=== PATIENT | male | born 1950 | race Caucasian/White ===

== ENCOUNTER 2020-11-25 17:24 | Emergency (ER) | payer MEDICARE, SELFPAY ==
[2020-11-25 17:27] VITALS: BP 155/93; PULSE 76; RESP 18; TEMP 37.4; O2SAT 96; BMI 34.7
--- NOTE | 2020-11-25 17:57 | CT_ITS ---
STUDY: CT ABDOMEN AND PELVIS WITH CONTRAST REASON FOR EXAM: Male, 70 years old. Lower right abdomen pain x 1 week. RADIATION DOSAGE (If Supplied By Facility): CTDIvol = ( 18.59 ) mGy, DLP = ( 1274.45 ) mGycm TECHNIQUE: Transaxial images were obtained from the dome of the diaphragm to the symphysis pubis without oral contrast. IV 100mL Isovue-370 was administered. Sagittal and coronal images were reconstructed. Individualized dose optimization techniques were used for this CT. COMPARISON: None. FINDINGS: The visualized lung bases are unremarkable. The visualized portions of the heart are within normal limits. Normal liver. Normal gallbladder and extrahepatic biliary system. Normal spleen. Normal pancreas. Normal bilateral adrenal glands. Normal right kidney. Left kidney has a 4 mm nonobstructing lower pole stone. Evaluation of the GI tract is limited by absence of oral contrast. Cannot exclude stomach wall thickening. No dilated loops of bowel or evidence for obstruction. Cannot exclude segmental thickening of the tim of the small or large bowel. Cannot exclude enteritis or colitis. Moderate diffuse fecal retention. Diverticulosis without definite diverticulitis. Appendix within normal limits. Normal abdominal aorta. Normal inferior vena cava. Normal retroperitoneum. Normal urinary bladder. There is a small umbilical hernia containing fat. There are diffuse degenerative changes of the visualized lumbar spine. Compression fracture of T12 which appears old. CT/Abdomen/Pelvis W IV Cont ONLY IMPRESSION: No definite acute or significant abnormality seen. Electronically Signed: Harish Bean MD at 19:47 EST , Service support ,
--- NOTE | 2020-11-25 17:59 | ED.DCSUM_ITS ---
- ER Visit Summary Date of Service: 11/25/20 Chief Complaint: Right lower quadrant abdominal pain History of Present Illness: The patient is a 70 M history of 1 kidney stone around 1989 and has had some anxiety. Is never had any abdominal surgery. Patient states for 7 to 10 days he has had right lower quadrant abdominal pain. Worse when he bends over. Had one episode of nausea and vomiting that is since resolved. No fever or chills. No dysuria or hematuria. No abdominal trauma. A friend is that does some nursing told him she was concerned this could be his appendix and wanted to be evaluated. He denies any diarrhea or constipation. He has never had pain like this before. Physical Examination: Older male no acute distress vital signs stable afebrile temperature nine 9.3. He does not look septic or toxic. H EENT exam unremarkable. Neck nontender. Lungs clear to auscultation bilaterally. Heart regular rhythm no murmur rate about 75. Abdomen soft. He points to his right lower quadrant is not reproducibly tender. Right upper right lower quadrant and all other quadrants are nontender. Nondistended. No obvious hernia or mass. No signs of obstruction. No pulsatile mass. No signs of trauma. Moving all 4 extremities. Neurovascular intact. No edema. Back nontender. Neurologically is awake alert with no focal motor deficits. Test Results: CBC white count of 5 hemoglobin 14 normal. Chemistries normal normal creatinine gap. Liver enzymes total bili are slightly elevated 1.3 otherwise normal UA negative white cells red cells or nitrates 2+ bacteria. CT abdomen pelvis with IV contrast only shows no acute abnormality. There is an incidental finding of the left 4 mm kidney stone. With that in the kidney. There is increased stool the appendix was seen and was normal there is a incidental finding of a T12 compression fracture and an incidental finding of umbilical hernia. This was read by the radiologist and reviewed by me. I discussed all test results with the patient. At 8:02 PM he is doing well his abdomen is benign. Repeat abdominal exam is benign. Emergency Department Course and Treatment: 70-year-old male with right lower quadrant abdominal pain for 7 to 10 days. Differential would include appendicitis, kidney stone, UA, colitis or diverticulitis versus other etiologies. CAT scan labs being obtained. Currently does not need anything for pain or nausea. Treatment Plan: Tylenol and/or Motrin for pain. Follow-up with his doctor if not improving. Return if worse. Disposition: Discharge Impression: Acute right lower quadrant abdominal pain of uncertain etiology This note was generated with [employer] dictation software. It may contain incorrect words, spelling, and punctuation that were not noted in review of the chart prior to signing ED Disposition - Plan for ED Patient: Referrals: Cooper Boyd MD [Primary Care Provider] -
[2020-11-25] MEDS: 0.9% Normal Saline 1,000 ML 1000 ML IV (18:10)
[2020-11-25 18:21] LABS: Red Blood Cells-Urine 0 SEEN /hpf (0-5); Squamous Epithelial Cells - UA 0 SEEN /hpf (0-5)
[2020-11-25 18:22] LABS: Color, Urine Yellow (Yellow); Glucose, Dipstick Normal (Normal); Ketone-Dipstick 5 mg/dl (Negative); Leukocyte Esterase-Dipstick Negative /ul (Negative); Nitrite-Dipstick Negative (Negative); Occult Blood-Urine 150 /ul (Negative); Protein-Dipstick 15 mg/dl (Negative); Specific Gravity, Urine 1.025 (1.002-1.030); Urine Bilirubin Dipstick Negative (Negative); Urine Clarity Clear (Clear); Urine Urobilinogen Normal (Normal)
[2020-11-25 18:27] LABS: Absolute Lymphocyte Count 1.89 X10^3/uL (0.83-4.51); Absolute Neutrophil Count 3.4 X10^3/uL (2.0-7.7); Basophil# 0.02 X10^3/uL; Basophil% 0.3 % (0-1); Eosinophil# 0.09 X10^3/uL; Eosinophils% 1.6 % (0-5); Hematocrit 43.3 % (40-54); Hemoglobin 14.5 g/dL (13.0-16.5); Lymphocyte # 1.89 X10^3/ul (4.0); Lymphocyte % 32.6 % (19-41); Mean Corp Hgb Conc 33.5 g/dL (32-36); Mean Corpuscular Hgb 30.8 pg (27.0-32.0); Mean Corpuscular Volume 91.9 fL (80-94); Monocyte# 0.34 X10^3/uL; Monocyte% 5.9 % (0-10); NRBC Flagged by Analyzer 0 % (0-5); Neutrophil # 3.44 X10^3/uL (2.7-7.7); Neutrophil % 59.3 % (47-70); Platelet Count 244 K/mm3 (150-450); RBC Distribution Width CV 12.6 % (11.6-14.6); RBC Distribution Width SD 42.9 fl (35.1-43.9); Red Blood Count 4.71 M/mm3 (4.6-6.2); White Blood Count 5.8 K/mm3 (4.4-11.0)
[2020-11-25 18:34] LABS: Bacteria 2+ /hpf (None Seen); Mucous, Urine 4+ /hpf (<or=2+); White Blood Cells 0-5 SEEN /hpf (0-5)
[2020-11-25 18:53] LABS: ALB/GLOB Ratio 1.1 RATIO (0.9-2.4); AST(SGOT) 11 U/L (15-37); Alanine Aminotransfer ALT/SGPT 18 U/L (16-61); Albumin, Serum 3.7 g/dL (3.2-5.0); Alkaline Phosphatase 63 U/L (45-117); Anion Gap 5 (5-15); BUN 16 mg/dL (7-18); BUN/Creat Ratio 15.7 RATIO (10-20); Calcium,Total 8.4 mg/dL (8.5-10.1); Chloride 109 mmol/L (98-107); Creatinine, Serum 1.02 mg/dL (0.70-1.30); EST Glomerular Filtration Rate 77 mL/min (>60); Est Glom Filt Rate - Afr Amer 93 mL/min (>60); Estimated Creatinine Clearance 76.16 ml/min; Globulin 3.3 g/dL (2.2-4.2); Glucose 93 mg/dL (74-106); Potassium 3.9 mmol/L (3.5-5.1); Sodium Level 139 mmol/L (136-145)
[2020-11-25 19:34] VITALS: BP 141/81; PULSE 63; RESP 17; O2SAT 94
--- NOTE | 2020-11-25 20:06 | ED.DEP ---
ED Disposition - Plan for ED Patient: Disposition: Home or Assisted Living Instructions: ED Flank Pain, Uncertain Cause Referrals: Cooper Boyd MD [Primary Care Provider] - 3-5 Days if not improving Additional Instructions: Your test results tonight were unremarkable. Tylenol and or Motrin for pain. Follow-up with your doctor if not improving or return if feeling worse.
[2020-11-25 20:12] VITALS: BP 134/93; PULSE 60; RESP 17; O2SAT 99
== END 2020-11-25 20:13 | disposition home or self-care (01) ==
PROVIDERS: Emergency Provider Emergency Medicine; PCP Family Medicine
DX: R10.31 Right lower quadrant pain (principal); R11.2 Nausea with vomiting, unspecified; N20.0 Calculus of kidney; F41.9 Anxiety disorder, unspecified; Z79.899 Other long term (current) drug therapy; Z87.442 Personal history of urinary calculi
CPT/HCPCS: 74177; 80053; 81001; 85025; 96360; 99283; J7030; Q9967; A4216

== ENCOUNTER → 2020-12-30 15:29 | Outpatient (CLI) | payer MEDICARE, SELFPAY ==
[2020-12-30 18:36] LABS: Cholesterol 219 mg/dL (200); High Density Lipoprotein 45 mg/dL; PSA,Total - Annual Screen 1.56 ng/mL (0.00-4.00); Triglycerides 105 mg/dL; Very Low Density Lipoprotein 21 mg/dL (5-40)
[2021-01-01 06:08] LABS: HEPATITIS B SURFACE AG Negative (Negative); Hepatitis A AB, Total Negative (Negative); Hepatitis A IgM Antibody Negative (Negative); Hepatitis B Core AB IgM Negative (Negative); Hepatitis B Core Ab Total Negative (Negative); Hepatitis C Ab <0.1 s/co ratio (0.0-0.9)
[2021-01-01 14:19] LABS: Hep B Surface Antibodies Non Reactive (.)
== END ==
PROVIDERS: PCP Family Medicine; Visit Provider Family Medicine
DX: E80.6 Other disorders of bilirubin metabolism (principal); E66.9 Obesity, unspecified; Z12.5 Encounter for screening for malignant neoplasm of prostate
CPT/HCPCS: 36415; 80061; 84153; 86704; 86705; 86706; 86708; 86709; 86803; 87340; G0103

== ENCOUNTER → 2021-02-02 08:52 | Outpatient (CLI) | payer MEDICARE, SELFPAY ==
--- NOTE | 2021-02-02 08:56 | US_ITS ---
STUDY: ABDOMINAL ULTRASOUND - RIGHT UPPER QUADRANT REASON FOR VISIT: Male, 70 years old hyperbilirubinemia. TECHNIQUE: Ultrasound evaluation of the right upper quadrant was performed with real-time and static hill-scale imaging. TECHNICAL QUALITY: Adequate. COMPARISON: None. FINDINGS: Liver: The liver measures 16.1 cm. There is increased echogenicity consistent with fatty infiltration. The bile ducts are within normal limits. There is hepatic color flow. The direction of portal flow is hepatopetal. There are 2 cysts seen in the left lobe of the liver. The largest cyst measures 1.4 cm x 1.5 cm x 1.5 cm. Gallbladder: Normal distended gallbladder. The gallbladder wall measures 3 mm. There is a negative sonographic Torres''s sign. There is no pericholecystic fluid. There are no gallstones. Common Bile Duct (C.B.D.): The common bile duct measures 5 mm. Pancreas: Normal size of the head, body and tail of the pancreas. There is normal echogenicity of the pancreas. There is no demonstrated pancreatic mass or cyst. Right Kidney: Normal size of the right kidney. The right kidney measures 10.4 cm x 5.3 cm x 5 cm. Normal renal cortex. The right cortex measures 1.4 cm. There is a 1.4 cm x 1.5 cm x 1.5 cm cyst in the upper pole of the right kidney. There is no right hydronephrosis. US/Abdomen Limited IMPRESSION: Fatty infiltration of the liver. There are 2 cysts seen in the left lobe of the liver. 1.4 cm x 1.5 cm x 1.5 cm cyst in the upper pole of the right kidney. Electronically Signed: Mike Garber MD at 10:41 EDT , Service support ,
== END ==
PROVIDERS: PCP Family Medicine; Referring Provider Family Medicine; Visit Provider Family Medicine
DX: E80.6 Other disorders of bilirubin metabolism (principal)
CPT/HCPCS: 76705

== ENCOUNTER → 2021-03-03 | Outpatient (CLI) | payer MEDICARE, SELFPAY ==
--- NOTE | 2021-03-02 | IMM_PTH ---
PATIENT: DEEPTHI CHUNG LOC: [facility] U#:[id number] AGE/SX: 70/M ROOM: RE03/03/[address]: Dr. Cooper Boyd MD : 1950 BED: DIS: 03/03/2021 SPEC #: [id number] RECD: 03/04/21 12:37 STATUS: ELLYN REQ #: [id number] FENG: 03/02/21 00:[address]: Cooper Boyd DEPT: IMMUNOHISTOCHEMISTRY RECD BY: Mary Whipple Tissues: A - Skin of back, NOS B - Skin of chest Procedures: MART1 (add) S100 (initial) PHYSICIAN & INSTITUTION [place] [id number] SPECIMEN INFORMATION: Tissue Source: A ? Right lower back, B ? Left chest Clinical Info: Right lower back lesion; left chest lesion Specimen Number: [id number] A & B CPT code: 48777 x2, 83533 x2 METHODOLOGY: Deparaffinized sections of prefer/formalin-fixed tissue or PAP/DQ stained slides are incubated with monoclonal/polyclonal antibodies/oligonucleotide probes. Localization is made via biotin free immunoperoxidase method. Appropriate controls are performed and reacted as expected. Results on target cell population are indicated in the following table: RESULTS: ANTIBODY / CLONE RESULT Block A S-100 (4C4.9) positive MART-1 (A-103) positive Block B S-100 (4C4.9) positive MART-1 (A-103) negative These tests were developed and their performance characteristics determined by [facility]. They may not have been cleared or approved by the U.[place]. Food and Drug Administration. The FDA has determined that such clearance or approval is not necessary. The above immunohistochemical/dualISH markers are ordered and reviewed by the Pathologist. INTERPRETATION: A. Right lower back, shave biopsy: Intradermal nevus, neurotized. B. Left chest, shave biopsy: Neurofibroma. SJ:delfina 03/05/2021
--- NOTE | 2021-03-02 16:35 | LES_PTH ---
PATIENT: DEEPTHI CHUNG [facility] U#:[id number] AGE/SX: 70/M ROOM: RE03/03/[address]: Dr. Cooper Boyd MD : 1950 BED: DIS: 03/03/2021 SPEC #: [id number] RECD: 03/02/21 17:49 STATUS: ELLYN REDenise #: [id number] FENG: 03/02/21 16:[address]: Cooper Boyd DEPT: SURGICAL PATHOLOGY RECD BY: Kristina Palacios Tissues: A - Skin of back, NOS B - Skin of chest Procedures: Surgery Specimen Level IV HEADER OPERATION: Shave biopsy PRE-OP DIAGNOSIS: Right lower back lesion; left chest lesion TISSUE SUBMITTED: A - Shave biopsy right lower back, B ? Shave biopsy left chest MICROSCOPIC DIAGNOSIS A. Right lower back lesion, shave biopsy: Intradermal nevus (neurotized), present at the deep margin of the specimen. See comment. B. Left chest lesion, shave biopsy: Neurofibroma, present at the deep margin of the specimen. See comment. BRYAN:delfina 03/04/2021 COMMENT A & B - Immunohistochemistry ([id number]) supports the above diagnosis. MICROSCOPIC DESCRIPTION Slides are reviewed. GROSS DESCRIPTION A - Received in fixative is one container labeled with the patient's name and designated right lower back. The specimen consists of a piece of fields-white skin measuring 1 x 1 x 0.2 cm. There is a raised polypoid lesion on the surface measuring 0.5 x 0.3 cm. The specimen is inked, serially sectioned and submitted entirely in one cassette. B - Received in fixative is one container labeled with the patient's name and designated left chest. The specimen consists of a piece of fields-white skin measuring 0.5 x 0.5 x 0.3 cm. The specimen is inked, bisected and submitted entirely in one cassette. / BRYAN:delfina 03/03/21 TC:1 CPT: 80019 x2
== END | disposition home or self-care (01) ==
LOC: LABSPEC 08:33
PROVIDERS: PCP Family Medicine; Referring Provider Family Medicine; Visit Provider Family Medicine
DX: D22.5 Melanocytic nevi of trunk (principal)
CPT/HCPCS: 88305; 88341; 88342

== ENCOUNTER → 2021-07-17 | Outpatient (CLI) | payer MEDICARE, SELFPAY | END | disposition home or self-care (01) | PROVIDERS: PCP Family Medicine; Referring Provider Family Medicine; Visit Provider Family Medicine | DX: U07.1 COVID-19 (principal) | CPT/HCPCS: 87635; U0005; U0003 ==

== ENCOUNTER → 2022-01-28 | Outpatient (CLI) | payer MEDICARE, SELFPAY ==
[2022-01-28 17:48] LABS: Absolute Lymphocyte Count 1.71 X10^3/uL (0.83-4.51); Absolute Neutrophil Count 4.9 X10^3/uL (2.0-7.7); Basophil# 0.03 X10^3/uL; Basophil% 0.4 % (0-1); Eosinophils% 1.4 % (0-5); Hemoglobin 13.4 g/dL (13.0-16.5); Lymphocyte # 1.71 X10^3/ul (0.83-4.51); Lymphocyte % 23.2 % (19-41); Mean Corp Hgb Conc 33.5 g/dL (32-36); Mean Corpuscular Hgb 30.2 pg (27.0-32.0); Mean Corpuscular Volume 90.1 fL (80-94); Mean Platelet Vol. 9.3 fl (6.2-12.0); Monocyte# 0.62 X10^3/uL; Monocyte% 8.4 % (0-10); NRBC Flagged by Analyzer 0 % (0-5); Neutrophil # 4.89 X10^3/uL (2.7-7.7); Neutrophil % 66.3 % (47-70); Platelet Count 217 K/mm3 (150-450); RBC Distribution Width CV 13.7 % (11.6-14.6); RBC Distribution Width SD 45.1 fl (35.1-43.9); Red Blood Count 4.44 M/mm3 (4.6-6.2); White Blood Count 7.4 K/mm3 (4.4-11.0)
[2022-01-28 18:30] LABS: AST(SGOT) 10 U/L (15-37); Alanine Aminotransfer ALT/SGPT 17 U/L (16-61); Albumin, Serum 3.3 g/dL (3.2-5.0); Alkaline Phosphatase 78 U/L (45-117); Anion Gap 6 (5-15); BUN 19 mg/dL (7-18); BUN/Creat Ratio 19.5 RATIO (10-20); Calcium,Total 8.4 mg/dL (8.5-10.1); Chloride 108 mmol/L (98-107); Cholesterol 188 mg/dL (200); Creatinine, Serum 0.97 mg/dL (0.70-1.30); EST Glomerular Filtration Rate 81 mL/min (>60); Est Glom Filt Rate - Afr Amer 98 mL/min (>60); Globulin 3.4 g/dL (2.2-4.2); Glucose 101 mg/dL (74-106); High Density Lipoprotein 43 mg/dL; Potassium 3.9 mmol/L (3.5-5.1); Protein, Total 6.7 g/dL (6.4-8.2); Sodium Level 139 mmol/L (136-145); Triglycerides 86 mg/dL; Very Low Density Lipoprotein 17 mg/dL (5-40)
== END | disposition home or self-care (01) ==
LOC: MFPLAB 16:29
PROVIDERS: PCP Family Medicine; Visit Provider Registered Nurse
DX: E78.5 Hyperlipidemia, unspecified (principal); Z12.5 Encounter for screening for malignant neoplasm of prostate
CPT/HCPCS: 36415; 80053; 80061; 84153; 85025; G0103

== ENCOUNTER → 2023-06-09 | Outpatient (CLI) | payer MEDICARE, SELFPAY ==
[2023-06-09 18:25] LABS: Absolute Neutrophil Count 4.8 X10^3/uL (2.0-7.7); Basophil# 0.04 X10^3/uL; Basophil% 0.6 % (0-1); Eosinophil# 0.22 X10^3/uL; Eosinophils% 3.2 % (0-5); Hematocrit 44.6 % (40-54); Hemoglobin 14.2 g/dL (13.0-16.5); Lymphocyte % 21.5 % (19-41); Mean Corp Hgb Conc 31.8 g/dL (32-36); Mean Corpuscular Hgb 29.8 pg (27.0-32.0); Mean Corpuscular Volume 93.7 fL (80-94); Mean Platelet Vol. 9.5 fl (6.2-12.0); Monocyte# 0.41 X10^3/uL; Monocyte% 5.9 % (0-10); NRBC Flagged by Analyzer 0 % (0-5); Neutrophil # 4.78 X10^3/uL (2.7-7.7); Neutrophil % 68.5 % (47-70); Platelet Count 237 K/mm3 (150-450); RBC Distribution Width CV 13.6 % (11.6-14.6); RBC Distribution Width SD 46.5 fl (35.1-43.9); Red Blood Count 4.76 M/mm3 (4.6-6.2)
[2023-06-09 18:39] LABS: Vitamin B12 348 pg/mL (211-911); Vitamin D,25 Hydroxy 27.4 ng/mL
[2023-06-09 18:51] LABS: AST(SGOT) 9 U/L (15-37); Alanine Aminotransfer ALT/SGPT 17 U/L (16-61); Albumin, Serum 3.4 g/dL (3.2-5.0); Alkaline Phosphatase 71 U/L (45-117); Anion Gap 5 (5-15); BUN 15 mg/dL (7-18); BUN/Creat Ratio 13.6 RATIO (10-20); Calcium,Total 8.7 mg/dL (8.5-10.1); Chloride 110 mmol/L (98-107); Cholesterol 188 mg/dL (200); EST Glomerular Filtration Rate 70 mL/min (>60); Est Glom Filt Rate - Afr Amer 85 mL/min (>60); Ferritin 94 ng/mL (26-388); Globulin 3.4 g/dL (2.2-4.2); Glucose 102 mg/dL (74-106); Hemoglobin A1c 5.7 % (3.8-5.6); High Density Lipoprotein 42 mg/dL; Magnesium 2.2 mg/dL (1.6-2.6); Protein, Total 6.8 g/dL (6.4-8.2); Sodium Level 139 mmol/L (136-145); Thyroid Stim Hormone (TSH) 2.48 uIU/mL (0.358-3.74); Triglycerides 79 mg/dL; Very Low Density Lipoprotein 16 mg/dL (5-40)
== END | disposition home or self-care (01) ==
LOC: MFPLAB 15:15
PROVIDERS: PCP Family Medicine; Visit Provider Family Medicine
DX: R53.83 Other fatigue (principal)
CPT/HCPCS: 36415; 80053; 80061; 82306; 82607; 82728; 83036; 83735; 84443; 85025

== ENCOUNTER → 2024-05-31 | Outpatient (CLI) | payer MEDICARE, SELFPAY ==
[2024-05-31 15:10] LABS: Absolute Lymphocyte Count 1.66 X10^3/uL (0.83-4.51); Absolute Neutrophil Count 3.4 X10^3/uL (2.0-7.7); Basophil# 0.04 X10^3/uL; Basophil% 0.7 % (0-1); Eosinophil# 0.22 X10^3/uL; Eosinophils% 3.9 % (0-5); Hematocrit 43.7 % (40-54); Hemoglobin 14.2 g/dL (13.0-16.5); Lymphocyte # 1.66 X10^3/ul (0.83-4.51); Lymphocyte % 29.3 % (19-41); Mean Corp Hgb Conc 32.5 g/dL (32-36); Mean Corpuscular Hgb 30.8 pg (27.0-32.0); Mean Corpuscular Volume 94.8 fL (80-94); Mean Platelet Vol. 9.4 fl (6.2-12.0); Monocyte# 0.37 X10^3/uL; Monocyte% 6.5 % (0-10); NRBC Flagged by Analyzer 0 % (0-5); Neutrophil # 3.37 X10^3/uL (2.7-7.7); Neutrophil % 59.4 % (47-70); Platelet Count 237 K/mm3 (150-450); RBC Distribution Width CV 13.2 % (11.6-14.6); RBC Distribution Width SD 45.9 fl (35.1-43.9); Red Blood Count 4.61 M/mm3 (4.6-6.2); White Blood Count 5.7 K/mm3 (4.4-11.0)
[2024-05-31 15:23] LABS: Vitamin D,25 Hydroxy 43.9 ng/mL
[2024-05-31 15:26] LABS: AST(SGOT) 11 U/L (15-37); Alanine Aminotransfer ALT/SGPT 18 U/L (16-61); Albumin, Serum 3.5 g/dL (3.2-5.0); Alkaline Phosphatase 61 U/L (45-117); Anion Gap 9 (5-15); BUN 25 mg/dL (7-18); BUN/Creat Ratio 24.8 RATIO (10-20); Calcium,Total 9.1 mg/dL (8.5-10.1); Chloride 107 mmol/L (98-107); Cholesterol 191 mg/dL (200); Creatinine, Serum 1.01 mg/dL (0.70-1.30); EST Glomerular Filtration Rate 77 mL/min (>60); Est Glom Filt Rate - Afr Amer 93 mL/min (>60); Globulin 3.4 g/dL (2.2-4.2); Glucose 110 mg/dL (74-106); High Density Lipoprotein 45 mg/dL; PSA,Total - Annual Screen 1.54 ng/mL (0.00-4.00); Potassium 4.2 mmol/L (3.5-5.1); Protein, Total 6.9 g/dL (6.4-8.2); Sodium Level 139 mmol/L (136-145); Triglycerides 66 mg/dL; Very Low Density Lipoprotein 13 mg/dL (5-40)
[2024-05-31 15:55] LABS: Hemoglobin A1c 5.5 % (3.8-5.6)
[2024-06-02 11:09] LABS: Lyme Scn Total Ab w/Rflx Negative (Negative)
== END | disposition home or self-care (01) ==
LOC: MFPLAB 12:17
PROVIDERS: PCP Family Medicine; Visit Provider Family Medicine
DX: R73.03 Prediabetes (principal); L03.90 Cellulitis, unspecified; E55.9 Vitamin D deficiency, unspecified; R53.83 Other fatigue; Z12.5 Encounter for screening for malignant neoplasm of prostate
CPT/HCPCS: 36415; 80053; 80061; 82306; 83036; 84153; 85025; 86618; G0103

== ENCOUNTER → 2025-05-24 | Outpatient (CLI) | payer MEDICARE, SELFPAY ==
[2025-05-24 12:35] LABS: Hematocrit 41.1 % (40-54); Hemoglobin 14.0 g/dL (13.0-16.5); Immature Granulocytes Count 0.020 X10^3/uL (0.0-0.0); Mean Corp Hgb Conc 34.1 g/dL (32-36); Mean Corpuscular Volume 92.2 fL (80-94); Mean Platelet Vol. 9.4 fl (6.2-12.0); NRBC Flagged by Analyzer 0 % (0-5); Platelet Count 243 K/mm3 (150-450); RBC Distribution Width CV 13.1 % (11.6-14.6); RBC Distribution Width SD 44.7 fl (35.1-43.9); Red Blood Count 4.46 M/mm3 (4.6-6.2); White Blood Count 4.8 K/mm3 (4.4-11.0)
[2025-05-24 13:34] LABS: Anion Gap 12 (5-15); BUN 17 mg/dL (4-19); BUN/Creat Ratio 17.2 RATIO (10-20); Calcium,Total 9.0 mg/dL (7.6-11.0); Carbon Dioxide 22.1 mmol/L (21.0-32.0); Chloride 104 mmol/L (98-108); Glucose 106 mg/dL (70-99); Potassium 3.9 mmol/L (3.3-5.1)
--- OUTSIDE RECORDS SUMMARY | 2025-05-24 14:16 | XMS RPT_ITS | CCD ---
Author Organization [facility] [employer] [place] [facility] [employer] [facility] Care Team Providers Care Junior Technical Writer Name Role Phone Libra Casanova Attending Unavailable Libra Casanova Primary Care Unavailable Medications Current Medications Medication Drug Class(es) Dates Sig (Normalized) Sig (Original) citalopram 20 mg oral tablet (2 sources) Serotonin Reuptake Inhibitor Start: 11-25-2020 take 30 mg by mouth once daily Citalopram Active 30 MG PO DAILY November 25, 2020 6:38pm Problems Problem Classification Problem Date Documented Da te Episodic/Chronic Diabetes mellitus without complication (1 source) Prediabetes; Translations: [Prediabetes] Onset: 06-19-2024 Episodic Results Test Name Value Interpretation Reference Range Facility Lyme Screen W/Reflex WBon LYME SCREEN Ab Negative Normal Negative [facility] Comment on above: Result Comment: Lyme antibodies not detected. Reflex testing is not indicated. No laboratory evidence of infection with B. burgdorferi (Lyme disease). Negative results may occur in patients recently infected (less than or equal to 14 days) with B. burgdorferi. If recent infection is suspected, repeat testing on a new sample collected in 7 to 14 days is recommended. Performed at: [address] [id number] Nodulizer: Jey France PhD, Phone: [phone] Performed By: #### L 501.9910, L7000.5300, L501.9985, L500.4100, L100.0100, L500.4050, L506.1000 #### [facility] [place], [address] CBC W/Diff, Automatedon - Absolute Lymph 1.66 X10 3/uL Normal 0.83-4.51 [facility] Comment on above: Performed By: #### L 501.9910, L7000.5300, L501.9985, L500.4100, L100.0100, L500.4050, L506.1000 #### [facility] [address] [place], [address] Absolute Neut 3.4 X10 3/uL Normal 2.0-7.7 [facility] Comment on above: Performed By: #### L 501.9910, L7000.5300, L501.9985, L500.4100, L100.0100, L500.4050, L506.1000 #### [facility] [address] [place], [address] Basophils/100 WBC (Bld) 0.7 % Normal 0-1 [facility] Comment on above: Performed By: #### L 501.9910, L7000.5300, L501.9985, L500.4100, L100.0100, L500.4050, L506.1000 #### [facility] [address] [place], [address] Eosinophils/100 WBC (Bld) 3.9 % Normal 0-5 [facility] Comment on above: Performed By: #### L 501.9910, L7000.5300, L501.9985, L500.4100, L100.0100, L500.4050, L506.1000 #### [facility] [address] [place], [address] Erythrocyte distribution width (RBC) [Ratio] 13.2 % Normal 11.6-14.6 [facility] Comment on above: Performed By: #### L 501.9910, L7000.5300, L501.9985, L500.4100, L100.0100, L500.4050, L506.1000 #### [facility] [address] [place], [address] Hematocrit (Bld) [Volume fraction] 43.7 % Normal 40-54 [facility] Comment on above: Performed By: #### L 501.9910, L7000.5300, L501.9985, L500.4100, L100.0100, L500.4050, L506.1000 #### [facility] [address] [facility] [place], [address] Hemoglobin (Bld) [Mass/Vol] 14.2 g/dL Normal 13.0-16.5 [facility] Comment on above: Performed By: #### L 501.9910, L7000.5300, L501.9985, L500.4100, L100.0100, L500.4050, L506.1000 #### [facility] [address] [place], [address] IG% 0.200 Normal 0.0-0.9 [facility] Comment on above: Result Comment: IG% - Immature Granulocytes (promyelocytes, myelocytes and metamyelocytes) > 1% indicates that a LEFT SHIFT is Present. Performed By: #### L 501.9910, L7000.5300, L501.9985, L500.4100, L100.0100, L500.4050, L506.1000 #### [facility] [address] [place], [address] Lymphocytes/100 WBC (Bld) 29.3 % Normal 19-41 [facility] Comment on above: Performed By: #### L 501.9910, L7000.5300, L501.9985, L500.4100, L100.0100, L500.4050, L506.1000 #### [facility] [address] [facility] [place], [address] MCH (RBC) [Entitic mass] 30.8 pg Normal 27.0-32.0 [facility] Comment on above: Performed By: #### L 501.9910, L7000.5300, L501.9985, L500.4100, L100.0100, L500.4050, L506.1000 #### [facility] [address] [place], [address] MCHC (RBC) [Mass/Vol] 32.5 g/dL Normal 32-36 [facility] Comment on above: Performed By: #### L 501.9910, L7000.5300, L501.9985, L500.4100, L100.0100, L500.4050, L506.1000 #### [facility] [address] [place], [address] MCV (RBC) [Entitic vol] 94.8 fL High 80-94 [facility] Comment on above: Performed By: #### L 501.9910, L7000.5300, L501.9985, L500.4100, L100.0100, L500.4050, L506.1000 #### [facility] [address] [place], [address] Monocytes/100 WBC (Bld) 6.5 % Normal 0-10 [facility] Comment on above: Performed By: #### L 501.9910, L7000.5300, L501.9985, L500.4100, L100.0100, L500.4050, L506.1000 #### [facility] [address] [place], [address] Neutrophils/100 WBC (Bld) 59.4 % Normal 47-70 [facility] Comment on above: Performed By: #### L 501.9910, L7000.5300, L501.9985, L500.4100, L100.0100, L500.4050, L506.1000 #### [facility] [address] [place], [address] Nucleated RBC (Bld) [#/Vol] 0 10*3/uL Normal 0-5 [facility] Comment on above: Performed By: #### L 501.9910, L7000.5300, L501.9985, L500.4100, L100.0100, L500.4050, L506.1000 #### [facility] [address] [place], [address] Platelet mean volume (Bld) [Entitic vol] 9.4 fL Normal 6.2-12.0 [facility] Comment on above: Performed By: #### L 501.9910, L7000.5300, L501.9985, L500.4100, L100.0100, L500.4050, L506.1000 #### [facility] [address] [place], [address] Platelets (Bld) [#/Vol] 237 10*3/uL Normal 150-450 [facility] Comment on above: Performed By: #### L 501.9910, L7000.5300, L501.9985, L500.4100, L100.0100, L500.4050, L506.1000 #### [facility] [address] [place], [address] RBC (Bld) [#/Vol] 4.61 10*6/uL Normal 4.6-6.2 [facility] Comment on above: Performed By: #### L 501.9910, L7000.5300, L501.9985, L500.4100, L100.0100, L500.4050, L506.1000 #### [facility] [address] [place], [address] RDW SD 45.9 fl High 35.1-43.9 [facility] Comment on above: Performed By: #### L 501.9910, L7000.5300, L501.9985, L500.4100, L100.0100, L500.4050, L506.1000 #### [facility] [address] [place], [address] WBC (Bld) [#/Vol] 5.7 10*3/uL Normal 4.4-11.0 [facility] Comment on above: Performed By: #### L 501.9910, L7000.5300, L501.9985, L500.4100, L100.0100, L500.4050, L506.1000 #### [facility] [address] [place], [address] Comprehensive Metabolic Prof [facility] 05-31-2024 Albumin [Mass/Vol] 3.5 g/dL Normal 3.2-5.0 [facility] Comment on above: Performed By: #### L 501.9910, L7000.5300, L501.9985, L500.4100, L100.0100, L500.4050, L506.1000 #### [facility] [address] [place], [place], [id number] Albumin/Globulin [Mass ratio] 1.0 {ratio} Normal 0.9-2.4 [facility] Comment on above: Performed By: #### L 501.9910, L7000.5300, L501.9985, L500.4100, L100.0100, L500.4050, L506.1000 #### [facility] [address] [place], [place], [id number] ALK P 61 U/L Normal 45-117 [facility] Comment on above: Performed By: #### L 501.9910, L7000.5300, L501.9985, L500.4100, L100.0100, L500.4050, L506.1000 #### [facility] [address] [place], [address] ALT [Catalytic activity/Vol] 18 U/L Normal 16-61 [facility] Comment on above: Performed By: #### L 501.9910, L7000.5300, L501.9985, L500.4100, L100.0100, L500.4050, L506.1000 #### [facility] [address] [place], [address] AST [Catalytic activity/Vol] 11 U/L Low 15-37 [facility] Comment on above: Performed By: #### L 501.9910, L7000.5300, L501.9985, L500.4100, L100.0100, L500.4050, L506.1000 #### [facility] [address] [place], [address] Bilirubin [Mass/Vol] 0.80 mg/dL Normal 0.20-1.00 [facility] Comment on above: Result Comment: For patients on eltrombopag therapy, use of Dimension [place] TBIL is not recommended. Performed By: #### L 501.9910, L7000.5300, L501.9985, L500.4100, L100.0100, L500.4050, L506.1000 #### [facility] [address] [place], [address] BUN/CRE 24.8 RATIO High 10-20 [facility] Comment on above: Performed By: #### L 501.9910, L7000.5300, L501.9985, L500.4100, L100.0100, L500.4050, L506.1000 #### [facility] [address] [place], [address] CA,Total 9.1 mg/dL Normal 8.5-10.1 [facility] Comment on above: Performed By: #### L 501.9910, L7000.5300, L501.9985, L500.4100, L100.0100, L500.4050, L506.1000 #### [facility] [address] [place], [address] Chloride [Moles/Vol] 107 mmol/L Normal 98-107 [facility] Comment on above: Performed By: #### L 501.9910, L7000.5300, L501.9985, L500.4100, L100.0100, L500.4050, L506.1000 #### [facility] [address] [place], [address] CO2 [Moles/Vol] 23.0 mmol/L Normal 21.0-32.0 [facility] Comment on above: Performed By: #### L 501.9910, L7000.5300, L501.9985, L500.4100, L100.0100, L500.4050, L506.1000 #### [facility] [address] [place], [address] Creatinine [Mass/Vol] 1.01 mg/dL Normal 0.70-1.30 [facility] Comment on above: Result Comment: The validity of the calculated GFR GFRAA in patients over 70 years has not been determined. Clinical correlation is essential. Performed By: #### L 501.9910, L7000.5300, L501.9985, L500.4100, L100.0100, L500.4050, L506.1000 #### [facility] [address] [place], [address] EST GFR - AA 93 mL/min Normal >60 [facility] Comment on above: Result Comment: Afri can [place] GFR Calc Performed By: #### L 501.9910, L7000.5300, L501.9985, L500.4100, L100.0100, L500.4050, L506.1000 #### [facility] [address] [place], [address] GAP 9 Normal 5-15 [facility] Comment on above: Performed By: #### L 501.9910, L7000.5300, L501.9985, L500.4100, L100.0100, L500.4050, L506.1000 #### [facility] [address] [place], [address] GFR/1.73 sq M.predicted among non-blacks MDRD (S/P/Bld) [Vol rate/Area] 77 mL/min/{1.73_m2} Normal >60 [facility] Comment on above: Result Comment: Non- GFR Calc Performed By: #### L 501.9910, L7000.5300, L501.9985, L500.4100, L100.0100, L500.4050, L506.1000 #### [facility] [address] [place], [address] Globulin (S) [Mass/Vol] 3.4 g/dL Normal 2.2-4.2 [facility] Comment on above: Performed By: #### L 501.9910, L7000.5300, L501.9985, L500.4100, L100.0100, L500.4050, L506.1000 #### [facility] [address] [place], [address] Glucose [Mass/Vol] 110 mg/dL High 74-106 [facility] Comment on above: Result Comment: Fast ing Glucose result from 100 to 125 mg/dL suggests IMPAIRED HOMEOSTASIS per A.D.A. criteria. Performed By: #### L 501.9910, L7000.5300, L501.9985, L500.4100, L100.0100, L500.4050, L506.1000 #### [facility] [address] [place], [address] Potassium [Moles/Vol] 4.2 mmol/L Normal 3.5-5.1 [facility] Comment on above: Performed By: #### L 501.9910, L7000.5300, L501.9985, L500.4100, L100.0100, L500.4050, L506.1000 #### [facility] [address] [place], [address] Sodium [Moles/Vol] 139 mmol/L Normal 136-145 [facility] Comment on above: Performed By: #### L 501.9910, L7000.5300, L501.9985, L500.4100, L100.0100, L500.4050, L506.1000 #### [facility] [address] [place], [address] T PROT 6.9 g/dL Normal 6.4-8.2 [facility] Comment on above: Performed By: #### L 501.9910, L7000.5300, L501.9985, L500.4100, L100.0100, L500.4050, L506.1000 #### [facility] [address] [place], [address] Urea nitrogen [Mass/Vol] 25 mg/dL High 7-18 [facility] Comment on above: Performed By: #### L 501.9910, L7000.5300, L501.9985, L500.4100, L100.0100, L500.4050, L506.1000 #### [facility] [address] [place], [address] Hemoglobin A1con 05-31-2024 HbA1c (Bld) [Mass fraction] 5.5 % Normal 3.8-5.6 [facility] Comment on above: Result Comment: Norm al < 5.7 % Prediabetic 5.7 - 6.4 % Diabetic >or= 6.5 % Please note range changes. Performed By: #### L 501.9910, L7000.5300, L501.9985, L500.4100, L100.0100, L500.4050, L506.1000 #### [facility] [address] [place], [address] Lipid Profileon 05-31-2024 Cholesterol [Mass/Vol] 191 mg/dL Normal 200 [facility] Comment on above: Result Comment: <200 mg/dL Desirable 200-240 mg/dL Borderline >240 mg/dL High Risk Performed By: #### L 501.9910, L7000.5300, L501.9985, L500.4100, L100.0100, L500.4050, L506.1000 #### [facility] [address] [place], [address] Cholesterol in HDL [Mass/Vol] 45 mg/dL Normal [facility] Comment on above: Result Comment: The drugs N-Acetylcysteine and Metamizole may falsely depress this assay. Reference Range HDL <40 mg/dL Low HDL Cholesterol HDL >or= 60 mg/dL High HDL Cholesterol Performed By: #### L 501.9910, L7000.5300, L501.9985, L500.4100, L100.0100, L500.4050, L506.1000 #### [facility] [address] [place], [address] Cholesterol in LDL [Mass/Vol] 133 mg/dL High 0-130 [facility] Comment on above: Performed By: #### L 501.9910, L7000.5300, L501.9985, L500.4100, L100.0100, L500.4050, L506.1000 #### [facility] [address] [place], [address] Cholesterol in VLDL [Mass/Vol] 13 mg/dL Normal 5-40 [facility] Comment on above: Performed By: #### L 501.9910, L7000.5300, L501.9985, L500.4100, L100.0100, L500.4050, L506.1000 #### [facility] [address] [place], [address] Triglyceride [Mass/Vol] 66 mg/dL Normal [facility] Comment on above: Result Comment: The drugs N-Acetylcysteine and Metamizole may falsely depress this assay. Serum Triglycerides Reference Interval Normal <150 mg/dL Borderline high 150 - 199 mg/dL High 200 - 499 mg/dL Very High > or = 500 mg/dL Performed By: #### L 501.9910, L7000.5300, L501.9985, L500.4100, L100.0100, L500.4050, L506.1000 #### [facility] [address] [place], [place], [id number] (491) PSA,Total - Annual Screenon 05-31-2024 PSA,TOT SCREEN 1.54 ng/mL Normal 0.00-4.00 [facility] Comment on above: Result Comment: This test was performed using the TPSA assay method for the [employer] chemistry system. Values obtained with different assay methods cannot be used interchangably. When changing PSA assays in the course of monitoring a patient, additional sequential testing should be carried out to confirm baseline values. Performed By: #### L 501.9910, L7000.5300, L501.9985, L500.4100, L100.0100, L500.4050, L506.1000 #### [facility] [address] [place], [place], [id number] Vitamin D,25 Hydroxyon 05-31 Vitamin D 25-OH 43.9 ng/mL Normal [facility] Comment on above: Result Comment: Bonnie min D 25(OH) Status Range Deficiency <20 ng/mL (50nmol/L) Insufficiency 20 - 30 ng/mL (50 - 75 nmol/L) Sufficiency 30 - 100 ng/mL (75 - 250 nmol/L) Toxicity >100 ng/mL (>250 nmol/L) Performed By: #### L 501.9910, L7000.5300, L501.9985, L500.4100, L100.0100, L500.4050, L506.1000 #### [facility] [address] [place], [address] Absolute lymphocyte countOrd ered By: Rachel Jules on 06-09-2023 Lymphocytes Auto (Unsp spec) [#/Vol] 1.50 10*3/uL 0.83-4.51 [facility] Basophil percentageOrdered B y: Rachel Jules on 06-09-2023 Basophils/100 WBC (Bld) 0.6 % 0-1 [facility] Bilirubin [Mass/Vol] 1.10 mg/dL 0.20-1.00 [facility] Comment on above: For patients on eltr ombopag therapy, use of Dimension [place] TBIL is not recommended. Chloride [Moles/Vol] 110 mmol/L 98-107 [facility] Cholesterol [Mass/Vol] 188 mg/dL <200 [facility] Comment on above: <200 mg/dL Desirable 200-240 mg/dL Borderline >240 mg/dL High Risk Eosinophils/100 WBC (Bld) 3.2 % 0-5 [facility] Glucose [Mass/Vol] 102 mg/dL 74-106 [facility] Comment on above: Fasting Glucose resu lt from 100 to 125 mg/dL suggests IMPAIRED HOMEOSTASIS per A.D.A. criteria. Neutrophils (Bld) [#/Vol] 4.8 10*3/uL 2.0-7.7 [facility] Neutrophils/100 WBC (Bld) 68.5 % 47-70 [facility] Potassium [Moles/Vol] 4.0 mmol/L 3.5-5.1 [facility] Protein [Mass/Vol] 6.8 g/dL 6.4-8.2 [facility] Sodium [Moles/Vol] 139 mmol/L 136-145 [facility] Triglyceride [Mass/Vol] 79 mg/dL <199 [facility] Comment on above: The drugs N-Acetylcy steine and Metamizole may falsely depress this assay.Serum Triglycerides Reference Interval Normal <150 mg/dL Borderline high 150 - 199 mg/dL High 200 - 499 mg/dL Very High > or = 500 mg/dL WBC (Bld) [#/Vol] 7.0 10*3/uL 4.4-11.0 [facility] Blood erythrocytes count (nu mber/volume)Ordered By: Rachel Jules on 06-09-2023 RBC (Bld) [#/Vol] 4.76 10*6/uL 4.6-6.2 [facility] Blood hemoglobin measurement (mass/volume)Ordered By: Rachel Jules on 06-09-2023 Hemoglobin (Bld) [Mass/Vol] 14.2 g/dL 13.0-16.5 [facility] Blood lymphocytes/100 leukoc ytesOrdered By: Rachel Jules on 06-09-2023 Lymphocytes/100 WBC (Bld) 21.5 % 19-41 [facility] Blood monocytes/100 leukocyt esOrdered By: Rachel Jules on 06-09-2023 Monocytes/100 WBC (Bld) 5.9 % 0-10 [facility] Blood platelet mean volumeOr dered By: Rachel Jules on 06-09-2023 Platelet mean volume (Bld) [Entitic vol] 9.5 fL 6.2-12.0 [facility] Determination of erythrocyte mean corpuscular volume (MCV)Ordered By: Rachel Jules on 06-09-2023 MCV (RBC) [Entitic vol] 93.7 fL 80-94 [facility] Hematocrit Auto (Bld) [Volum e fraction]Ordered By: Rachel Jules on 06-09-2023 Hematocrit (Bld) [Volume fraction] 44.6 % 40-54 [facility] - Chemistry and C hemistry - challengeOrdered By: Rachel Jules on 06-09-2023 ALP [Catalytic activity/Vol] 71 U/L 45-117 [facility] ALT [Catalytic activity/Vol] 17 U/L 16-61 [facility] CO2 [Moles/Vol] 24.0 mmol/L 21.0-32.0 [facility] Cobalamin (Vitamin B12) [Mass/Vol] 348 pg/mL 211-911 [facility] Globulin (S) [Mass/Vol] 3.4 g/dL 2.2-4.2 [facility] Magnesium [Mass/Vol] 2.2 mg/dL 1.6-2.6 [facility] Urea nitrogen/Creatinine [Mass ratio] 13.6 mg/mg 10-20 [facility] - Hematology and Cell countsOrdered By: Rachel Jules on 06-09-2023 Erythrocyte distribution width (RBC) [Entitic vol] 46.5 fL 35.1-43.9 [facility] Erythrocyte distribution width (RBC) [Ratio] 13.6 % 11.6-14.6 [facility] Immature granulocytes/100 WBC (Bld) 0.300 % 0.0-0.9 [facility] Comment on above: IG% - Immature Granu locytes (promyelocytes, myelocytes and metamyelocytes) > 1% indicates that a LEFT SHIFT is Present. MCH (RBC) [Entitic mass] 29.8 pg 27.0-32.0 [facility] Nucleated RBC/100 WBC (Bld) [Ratio] 0 % 0-5 [facility] MCHC Auto (RBC) [Mass/Vol]Or dered By: Rachel Jules on 06-09-2023 MCHC (RBC) [Mass/Vol] 31.8 g/dL 32-36 [facility] No Panel InformationOrdered By: Rachel Jules on 06-09-2023 Estimated GFR (MDRD) Amer 85 mL/min >60 [facility] Comment on above: GFR Calc Estimated GFR (MDRD) Non-Af Amer 70 mL/min >60 [facility] Comment on above: Non- GFR Calc Thyroid Stimulating Hormone (TSH) 2.48 uIU/mL 0.358-3.74 [facility] Vitamin D 25-Hydroxy 27.4 ng/mL [facility] Comment on above: Vitamin D 25(OH) Sta tus Range Deficiency <20 ng/mL (50nmol/L) Insufficiency 20 - 30 ng/mL (50 - 75 nmol/L) Sufficiency 30 - 100 ng/mL (75 - 250 nmol/L) Toxicity >100 ng/mL (>250 nmol/L) Platelets bldOrdered By: Constantino Jules on 06-09-2023 Platelets (Bld) [#/Vol] 237 10*3/uL 150-450 [facility] Serum or plasma albumin jocelynn urement (mass/volume)Ordered By: Rachel Jules on 06-09-2023 Albumin [Mass/Vol] 3.4 g/dL 3.2-5.0 [facility] Serum or plasma albumin/glob ulin mass ratioOrdered By: Rachel Jules on 06-09-2023 Albumin/Globulin [Mass ratio] 1.0 {ratio} 0.9-2.4 [facility] Serum or plasma calcium jocelynn urement (mass/volume)Ordered By: Rachel Jules on 06-09-2023 Calcium [Mass/Vol] 8.7 mg/dL 8.5-10.1 [facility] Serum or plasma cholesterol in HDL measurement (mass/volume)Ordered By: Rachel Jules on 06-09-2023 Cholesterol in HDL [Mass/Vol] 42 mg/dL >40 [facility] Comment on above: The drugs N-Acetylcy steine and Metamizole may falsely depress this assay. Reference Range HDL <40 mg/dL Low HDL Cholesterol HDL >or= 60 mg/dL High HDL Cholesterol Serum or plasma cholesterol in VLDL measurement (mass/volume)Ordered By: Rachel Jules on 06-09-2023 Cholesterol in VLDL [Mass/Vol] 16 mg/dL 5-40 [facility] Serum or plasma creatinine m easurement (mass/volume)Ordered By: Rachel Jules on 06-09-2023 Creatinine [Mass/Vol] 1.10 mg/dL 0.70-1.30 [facility] Comment on above: The validity of the calculated GFR & GFRAA in patients over 70 years has not been determined. Clinical correlation is essential. Serum or plasma ferritin david surement (mass/volume)Ordered By: Rachel Jules on 06-09-2023 Ferritin [Mass/Vol] 94 ng/mL 26-388 [facility] Serum or plasma low density lipoprotein (LDL) cholesterol measurement (mass/volume)Ordered By: Rachel Jules on 06-09-2023 Cholesterol in LDL [Mass/Vol] 130 mg/dL 0-130 [facility] Serum or plasma urea nitroge n measurement (mass/volume)Ordered By: Rachel Jules on 06-09-2023 Urea nitrogen [Mass/Vol] 15 mg/dL 7-18 [facility] Thin prep Papanicolaou smear with manual screeningOrdered By: Rachel Jules on 06-09-2023 Thin prep Papanicolaou smear with manual screening 9 U/L 15-37 [facility] Thin prep Papanicolaou smear with manual screening 5 5-15 [facility] Whole blood hemoglobin A1c/t otal hemoglobin ratio (mass fraction)Ordered By: Rachel Jules on 06-09-2023 HbA1c (Bld) [Mass fraction] 5.7 % 3.8-5.6 [facility] Comment on above: Normal < 5.7 % Predi abetic 5.7 - 6.4 % Diabetic >or= 6.5 % Please note range changes. Absolute lymphocyte counton 01-28-2022 Lymphocytes Auto (Unsp spec) [#/Vol] 1.71 10*3/uL 0.83-4.51 [facility] Work Phone: Basophil percentageon 2021 Basophils/100 WBC (Bld) 0.4 % 0-1 [facility] Work Phone: Bilirubin [Mass/Vol] 1.30 mg/dL 0.20-1.00 [facility] Work Phone: Comment on above: For patients on eltr ombopag therapy, use of Dimension [place] TBIL is not recommended. Chloride [Moles/Vol] 108 mmol/L 98-107 [facility] Work Phone: Cholesterol [Mass/Vol] 188 mg/dL <200 [facility] Work Phone: Comment on above: <200 mg/dL Desirable 200-240 mg/dL Borderline >240 mg/dL High Risk Eosinophils/100 WBC (Bld) 1.4 % 0-5 [facility] Work Phone: Glucose [Mass/Vol] 101 mg/dL 74-106 [facility] Work Phone: Comment on above: Fasting Glucose resu lt from 100 to 125 mg/dL suggests IMPAIRED HOMEOSTASIS per A.D.A. criteria. Neutrophils (Bld) [#/Vol] 4.9 10*3/uL 2.0-7.7 [facility] Work Phone: Neutrophils/100 WBC (Bld) 66.3 % 47-70 [facility] Work Phone: Potassium [Moles/Vol] 3.9 mmol/L 3.5-5.1 [facility] Work Phone: Protein [Mass/Vol] 6.7 g/dL 6.4-8.2 [facility] Work Phone: Sodium [Moles/Vol] 139 mmol/L 136-145 [facility] Work Phone: Triglyceride [Mass/Vol] 86 mg/dL [facility] Work Phone: Comment on above: The drugs N-Acetylcy steine and Metamizole may falsely depress this assay.Serum Triglycerides Reference Interval Normal <150 mg/dL Borderline high 150 - 199 mg/dL High 200 - 499 mg/dL Very High > or = 500 mg/dL WBC (Bld) [#/Vol] 7.4 10*3/uL 4.4-11.0 [facility] Work Phone: Blood erythrocytes count (nu mber/volume)on 01-28-2022 RBC (Bld) [#/Vol] 4.44 10*6/uL 4.6-6.2 [facility] Work Phone: Blood hemoglobin measurement (mass/volume)on 01-28-2022 Hemoglobin (Bld) [Mass/Vol] 13.4 g/dL 13.0-16.5 [facility] Work Phone: Blood lymphocytes/100 leukoc yteson 01-28-2022 Lymphocytes/100 WBC (Bld) 23.2 % 19-41 [facility] Work Phone: Blood monocytes/100 leukocyt eson 01-28-2022 Monocytes/100 WBC (Bld) 8.4 % 0-10 [facility] Work Phone: Blood platelet mean volumeon 01-28-2022 Platelet mean volume (Bld) [Entitic vol] 9.3 fL 6.2-12.0 [facility] Work Phone: Determination of erythrocyte mean corpuscular volume (MCV)on 01-28-2022 MCV (RBC) [Entitic vol] 90.1 fL 80-94 [facility] Work Phone: Hematocrit Auto (Bld) [Volum e fraction]on 01-28-2022 Hematocrit (Bld) [Volume fraction] 40.0 % 40-54 [facility] Work Phone: Laboratory - Chemistry and C hemistry - challengeon 01-28-2022 ALP [Catalytic activity/Vol] 78 U/L 45-117 [facility] Work Phone: ALT [Catalytic activity/Vol] 17 U/L 16-61 [facility] Work Phone: CO2 [Moles/Vol] 25.0 mmol/L 21.0-32.0 [facility] Work Phone: Globulin (S) [Mass/Vol] 3.4 g/dL 2.2-4.2 [facility] Work Phone: Urea nitrogen/Creatinine [Mass ratio] 19.5 mg/mg 10-20 [facility] Work Phone: Laboratory - Hematology and Cell countson 01-28-2022 Erythrocyte distribution width (RBC) [Entitic vol] 45.1 fL 35.1-43.9 [facility] Work Phone: Erythrocyte distribution width (RBC) [Ratio] 13.7 % 11.6-14.6 [facility] Work Phone: Immature granulocytes/100 WBC (Bld) 0.300 % 0.0-0.9 [facility] Work Phone: Comment on above: IG% - Immature Granu locytes (promyelocytes, myelocytes and metamyelocytes) > 1% indicates that a LEFT SHIFT is Present. MCH (RBC) [Entitic mass] 30.2 pg 27.0-32.0 [facility] Work Phone: Nucleated RBC/100 WBC (Bld) [Ratio] 0 % 0-5 [facility] Work Phone: MCHC Auto (RBC) [Mass/Vol]on 01-28-2022 MCHC (RBC) [Mass/Vol] 33.5 g/dL 32-36 [facility] Work Phone: No Panel Informationon 01-28 Estimated GFR (MDRD) Amer 98 mL/min >60 [facility] Work Phone: Comment on above: GFR Calc Estimated GFR (MDRD) Non-Af Amer 81 mL/min >60 [facility] Work Phone: Comment on above: Non- GFR Calc Prostate Specific Antigen Screen 2.00 ng/mL 0.00-4.00 [facility] Work Phone: Comment on above: This test was perfor med using the TPSA assay method for [employer] chemistry system. Values obtained with differentassay methods cannot be used interchangably.When changing PSA assays in the course of monitoring apatient, additional sequential testing should be carriedout to confirm baseline values. Platelets bldon 01-28-2022 Platelets (Bld) [#/Vol] 217 10*3/uL 150-450 [facility] Work Phone: Serum or plasma albumin jocelynn urement (mass/volume)on 01-28-2022 Albumin [Mass/Vol] 3.3 g/dL 3.2-5.0 [facility] Work Phone: Serum or plasma albumin/glob ulin mass ratioon 01-28-2022 Albumin/Globulin [Mass ratio] 1.0 {ratio} 0.9-2.4 [facility] Work Phone: Serum or plasma calcium jocelynn urement (mass/volume)on 01-28-2022 Calcium [Mass/Vol] 8.4 mg/dL 8.5-10.1 [facility] Work Phone: Serum or plasma cholesterol in HDL measurement (mass/volume)on 01-28-2022 Cholesterol in HDL [Mass/Vol] 43 mg/dL [facility] Work Phone: Comment on above: The drugs N-Acetylcy steine and Metamizole may falsely depress this assay. Reference Range HDL <40 mg/dL Low HDL Cholesterol HDL >or= 60 mg/dL High HDL Cholesterol Serum or plasma cholesterol in VLDL measurement (mass/volume)on 01-28-2022 Cholesterol in VLDL [Mass/Vol] 17 mg/dL 5-40 [facility] Work Phone: Serum or plasma creatinine m easurement (mass/volume)on 01-28-2022 Creatinine [Mass/Vol] 0.97 mg/dL 0.70-1.30 [facility] Work Phone: Comment on above: The validity of the calculated GFR & GFRAA in patients over 70 years has not been determined. Clinical correlation is essential. Serum or plasma low density lipoprotein (LDL) cholesterol measurement (mass/volume)on 01-28-2022 Cholesterol in LDL [Mass/Vol] 128 mg/dL 0-130 [facility] Work Phone: Serum or plasma urea nitroge n measurement (mass/volume)on 01-28-2022 Urea nitrogen [Mass/Vol] 19 mg/dL 7-18 [facility] Work Phone: Thin prep Papanicolaou smear with manual screeningon 01-28-2022 Thin prep Papanicolaou smear with manual screening 10 U/L 15-37 [facility] Work Phone: Thin prep Papanicolaou smear with manual screening 6 5-15 [facility] Work Phone: Encounters Encounter Date Encounter Type Care Provider Facility Start: 05-31-2024 End: 05-31-2024 ambulatory [facility] Facility:[facility] Start: 06-09-2023 End: 06-09-2023 ambulatory [facility] Work Phone: Start: 06-09-2023 End: 06-09-2023 Patient encounter procedure [facility] Start: 01-28-2022 End: 01-28-2022 Patient encounter procedure [facility] Payers Date Payer Category Payer Medicare [id number] 2024 Self-pay [id number] 2004 Unknown [id number] Private Health Insurance [id number] Unknown [id number] Social History Date Type Detail Facility [facility]: [facility] Start: 1950 Sex Assigned At Male [facility] Evaluation note Note Date & Type Note Facility Evaluation note No assessment information availa ble [facility] Work Phone: Advance Directives No Advanced Directives Records Found Advance Directive Response Recorded Date/ Time Living Will No November 25 6:39pm Power of Media Clerk No November 25, 2020 6:39pm Summary Purpose Family History No Family History Records Found Additional Source Comments Goals (unrecognized section and content) Goals may be documented in a n alternate sectionGoals may be documented in an alternate section Care Teams (unrecognized sec tion and content) Team Status: Active Member Role Status Dates Dr. Fernanda Perez , Family Provider Active Rachel Jules DO Primary Care Provider Active Team Status: Inactive Member Role Status Dates Rachel Jules , Primary Care Provider, Attending Provider Active (unrecognized sect ion and content) No Status Records Found INFORMATION SOURCE (unrecogn ized section and content) DATE CREATED AUTHOR 06/21/2024 [facility] FOR RECORDS PERTAINING TO PATIENTS WHO ARE OR HAVE BEEN ENROLLED IN A CHEMICAL DEPENDENCY/SUBSTANCEABUSE PROGRAM, SOME INFORMATION MAY BE OMITTED. This clinical summary was aggregated from multiple sources. Caution should be exercised in using it in the provision of clinical care. This summary normalizes information from multiple sources, and as a consequence, information in this document may materially change the coding, format and clinical context of patient data. In addition, data may be omitted in some cases. CLINICAL DECISIONS SHOULD BE BASED ON THE PRIMARY CLINICAL RECORDS. [facility] [employer] [facility]. provides no warranty or guarantee of the accuracy or completeness of information in this document.
== END | disposition home or self-care (01) ==
LOC: MFPLAB 10:43
PROVIDERS: PCP Family Medicine; Visit Provider Family Medicine
DX: R31.9 Hematuria, unspecified (principal)
CPT/HCPCS: 36415; 80048; 85025

== ENCOUNTER → 2025-06-27 | Outpatient (CLI) | payer MEDICARE, SELFPAY ==
--- NOTE | 2025-06-27 17:20 | CT_ITS ---
PROCEDURE: CT ABD/PELVIS W/WO CONTRAST 06/27/2025 REASON FOR EXAM: GROSS HEMATURIA TECHNIQUE: Procedure Code: [id number] Modality: CT Procedure: CT ABD/PELVIS W/WO CONTRAST Coronal and Sagittal reconstruction series were provided. CONTRAST: Isovue 370 VOLUME: 100 ML One or more dose reduction techniques were used (e.g., Automated exposure control, adjustment of the mA and/or kV according to patient size, use of iterative reconstruction technique. RADIATION DOSE SUMMARY: CTDlvol: 33.94 mGy DLP: 4352.84 mGycm COMPARISON: CT abdomen and pelvis 11/25/2020. FINDINGS: Lung bases: Clear. Liver: Multiple simple kidney cysts with the largest in the left hepatic lobe measures 1.8 cm. Gallbladder: Unremarkable bladder. No hydronephrosis. Spleen: Unremarkable. Pancreas: Unremarkable. Adrenals: Unremarkable. Kidneys: Perinephric fat stranding. No hydronephrosis. A 3 mm nonobstructing stone at the midpole of the left kidney. No kidney masses. Bladder: Decompressed bladder. Bladder wall thickening and surrounding fat stranding consistent with acute cystitis. Reproductive Organs: Unremarkable. Bowel: No bowel wall thickening. No bowel obstruction. Appendix: Unremarkable. Lymph nodes: No lymphadenopathy. Vasculature: No aneurysm. Peritoneum / Retroperitoneum: No free air or free fluid. Bones: No acute bony abnormality. A Schmorl node at the upper endplate of T12. CT/CT Abd/Pelvis W/WO Contrast IMPRESSION: Perinephric fat stranding. No hydronephrosis. A 3 mm nonobstructing stone at t he midpole of the left kidney. No kidney masses. Bladder wall thickening and surrounding fat stranding consistent with acute cys titis. Reading Location: [id number]
== END | disposition home or self-care (01) ==
LOC: CT 17:14
PROVIDERS: PCP Family Medicine; Referring Provider Urology; Visit Provider Urology
DX: R31.0 Gross hematuria (principal)
CPT/HCPCS: 74178; Q9967

== ENCOUNTER → 2025-07-02 | Outpatient (CLI) | payer MEDICARE, SELFPAY ==
[2025-07-02 18:50] LABS: Hematocrit 43.3 % (40-54); Hemoglobin 14.3 g/dL (13.0-16.5); Mean Corp Hgb Conc 33.0 g/dL (32-36); Mean Corpuscular Volume 94.7 fL (80-94); Mean Platelet Vol. 9.1 fl (6.2-12.0); Platelet Count 272 K/mm3 (150-450); RBC Distribution Width CV 13.2 % (11.6-14.6); RBC Distribution Width SD 45.7 fl (35.1-43.9); Red Blood Count 4.57 M/mm3 (4.6-6.2); White Blood Count 5.5 K/mm3 (4.4-11.0)
[2025-07-02 19:19] LABS: AST(SGOT) 14 U/L (<=37); Alanine Aminotransfer ALT/SGPT 11 U/L (<=46); Albumin, Serum 4.0 g/dL (3.4-4.8); Alkaline Phosphatase 64 U/L (40-129); Anion Gap 12 (5-15); BUN 12 mg/dL (4-19); BUN/Creat Ratio 12.4 RATIO (10-20); Calcium,Total 9.3 mg/dL (7.6-11.0); Carbon Dioxide 22.9 mmol/L (21.0-32.0); Chloride 104 mmol/L (98-108); Cholesterol 206 mg/dL (<=200); Globulin 2.6 g/dL (2.2-4.2); Glucose 105 mg/dL (70-99); Low Density Lipoprotein Calc. 142 mg/dL; PSA,Total - Annual Screen 1.30 ng/mL (0.02-4.00); Potassium 4.2 mmol/L (3.3-5.1); Triglycerides 109 mg/dL; Very Low Density Lipoprotein 22 mg/dL (5-40); cholesterol:hdl ratio screen 4.93
== END | disposition home or self-care (01) ==
LOC: MFPLAB 15:11
PROVIDERS: PCP Family Medicine; Visit Provider Family Medicine
DX: Z12.5 Encounter for screening for malignant neoplasm of prostate (principal); E78.5 Hyperlipidemia, unspecified; R73.03 Prediabetes
CPT/HCPCS: 36415; 80053; 80061; 84153; 85027; G0103

== ENCOUNTER 2025-07-12 11:14 | Observation (INO) | payer MEDICARE, SELFPAY ==
[2025-07-12] VITALS (20 sets, daily range): BP systolic 68–166; BP diastolic 40–107; PULSE 64–98; RESP 16–18; TEMP 36.3–36.9; O2SAT 89–97; BMI 33.1; BMI 33.3
[2025-07-12] MEDS: Lactated Ringers 1,000 ML 15 ML IV (08:41)
--- NOTE | 2025-07-12 08:59 | PRE.ANES_ITS ---
ASA Classification* ASA Classification ASA Classification: 2 Assessment & Plan Anesthesia* Anesthesia Assessment Anesthesia Assessment: Discussed sedation and/or anesthesia options, risks, benefits, and alternatives with patient/parents/legal guardian/POA. Questions invited. The patient/parents/legal guardian/POA seems to understand and agrees to proceed with anesthesia plan. Reviewed the physical assessment, medical history, allergy history and patient home medications list prior to surgery/procedure/anesthetic and documented any changes. Performed airway and anesthesia risk assessments. Anesthesia Type Anesthesia Type: General Anesthesia Focused Assessment* Airway Assessment Mouth opens: >3 cm Mallampati Score: II Labs Anesthesia Preop lab: CBC WBC, (4.4-11.0) 5.5 K/mm3 07/02/25, 15:12 RBC, (4.6-6.2) 4.57 M/mm3 L 07/02/25, 15:12 Hgb, (13.0-16.5) 14.3 g/dL 07/02/25, 15:12 Hct, (40-54) 43.3 % 07/02/25, 15:12 Plt Count, (150-450) 272 K/mm3 07/02/25, 15:12 CHEMISTRY Potassium, (3.3-5.1) 4.2 mmol/L 07/02/25, 15:12 Sodium, (133-145) 138 mmol/L 07/02/25, 15:12 Magnesium, (1.6-2.6) 2.2 mg/dL 06/09/23, 15:18 BUN, (4-19) 12 mg/dL 07/02/25, 15:12 Creatinine, (0.70-1.20) 0.95 mg/dL 07/02/25, 15:12 Glucose, (70-99) 105 mg/dL H 07/02/25, 15:12 TSH, (0.358-3.74) 2.48 uIU/mL 06/09/23, 15:18 COAG Pre-Assessment Diagnosis/Proposed Procedure Planned Operative Procedure(s): TRANSURETHERAL RESECTION OF BLADDER TUMOR Anesthesia History Anesthesia History - data conversion analyst: Anesthesia History - data conversion analyst Hx Hospitalization No 07/09/25 08:42 Any Problems With Anesthesia No 07/09/25 08:42 Cholinesterase deficiency No 07/09/25 08:42 You/Your Family Experience No 07/09/25 08:42 fever (hyperthermia) with Relationship Recent Exposure to Contagious Disease Does patient have nerve No 07/09/25 08:42 stimulator Patient instructed to have device shut off --Does patient have Pacemaker or ICD? When Was Last Pacemaker Check QUESTION #4 FULL TEXT: You/Your Family Experience fever (hyperthermia) with Anesthesia Last Oral Intake Last Oral intake: Last Oral Intake NPO since Meds taken in AM with sips of water? Meds patient instructed to take am of surgery PONV PONV - data conversion analyst: PONV - data conversion analyst Female No 07/09/25 08:42 HX of Motion Sickness No 07/09/25 08:42 HX of N/V After Surgery No 07/09/25 08:42 Non-Smoker Yes 07/09/25 08:42 Duration of Surgery greater Yes 07/09/25 08:42 than 60 minutes Number of Risk Factors 2 07/09/25 08:42 PONV Score Moderate Risk 07/09/25 08:42 Respiratory Assessment Respiratory Assessment - data conversion analyst: Respiratory Tract Infection Hx - data conversion analyst Hx Respiratory Tract Infection No 07/09/25 08:42 STOP Sleep Apnea STOP Sleep Apnea - data conversion analyst: STOP Sleep Apnea - data conversion analyst Hx Hypertension No 07/09/25 08:42 Hx Sleep Apnea No 07/09/25 08:42 CPAP BIPAP Do you snore loudly (louder No 07/09/25 08:42 than talking or can be heard Do you often feel tired/ No 07/09/25 08:42 fatigued/ sleepy during daytime? Has anyone observed you stop No 07/09/25 08:42 breathing during sleep? STOP Results Negative 07/09/25 08:42 QUESTION #5 FULL TEXT : Do you snore loudly (louder than talking or can be heard through closed doors)? 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 Specify any problems Hx of Preganancy in last 3 N/A 07/09/25 08:42 Months Nurse Filling Out Transfusion [id number] 07/09/25 08:42 & Questions: Date: 07/09/25 07/09/25 08:42 Time: 08:47 07/09/25 08:42 Patient unable to answer at this time (ie. confused, unrespo /Reproduction History /Reproductive History - data conversion analyst: /Reproductive Hx- data conversion analyst Hx Now Gestational Age (in weeks): EDC: Hx Hx Para Hx Section SAB Active Medications Active Medications: Current Medications Generic Name Dose Route Start Last Admin Trade Name Freq PRN Reason Stop Dose Admin Cefazolin Sodium 2 gm/ Sodium 110 mls @ 200 mls/hr 07/12/25 10:30 Chloride IV 07/12/25 11:02 INTRAOP ONE Mitomycin 40 mg/ N/A 40 mls @ 2,400 mls/hr 07/12/25 10:30 INSTILLAT 07/12/25 10:31 X1 ONE Lactated Ringer's 1,000 mls @ 15 mls/hr 07/12/25 08:30 07/12/25 08:41 IV 15 mls/hr .Q48H SHAUNA Administration PFSH Medical History Wears partial dentures Depression Non-smoker Home Medications ?Medication ?Instructions ?Recorded ?Last Taken ?Type citalopram 20 mg tablet 30 mg PO DAILY 11/25/20 Unkn own History Allergy/AdvReac Type Severity Reaction Status Date / Time No Known Allergies Allergy Verified 07/12/25 08:40 Surgical History H/O Spinal surgery Hx of tonsillectomy Social History Smoking Status: Never smoker Review of Systems (Anesthesia) ROS Narrative System reviewed and no additional complaints, except as documented.
[2025-07-12] MEDS: Lactated Ringers 1,000 ML 1000 ML IV (10:29)
[2025-07-12] MEDS: Cefazolin 1 GM/5 ML Vial 2 GM IV (10:29)
--- NOTE | 2025-07-12 10:30 | BLA_PTH ---
PATIENT: DEEPTHI CHUNG LOC: MS3 U#:[id number] AGE/SX: 74/M [place] [facility] [place]07/12/[address]: Dr. Partha Malik MD : 1950 BED: 1 DIS: 07/13/2025 SPEC #: [id number] RECD: 07/12/25 13:16 STATUS: ELLYN CARSON #: [id number] FENG: 07/12/25 10:[address]: Partha Malik DEPT: SURGICAL PATHOLOGY RECD BY: Darren Brand ENTERED: 07/12/25 14:13 SP TYPE: BLADDER BX OTHR DR: Libra Casanova MD Tissues: A - Urinary bladder, NOS Procedures: Immunohistochemical Stains Surgery Specimen Level V HEADER OPERATION: Cysto, transurethral resection bladder tumor PRE-OP DIAGNOSIS: Bladder tumor TISSUE SUBMITTED: A- Bladder biopsy MICROSCOPIC DIAGNOSIS A. Bladder, transurethral resection bladder tumor: * High grade invasive urothelial carcinoma. * Lamina propria involved. * Muscularis propria present and involved. * IHC for GATA3 is positive, supporting the histologic impression. MICROSCOPIC DESCRIPTION Slides are reviewed. All matched controls reacted appropriately. These tests were developed and their performance characteristics determined by [facility]. They may not have been cleared or approved by the U.S. Food and Drug Administration. The FDA has determined that such clearance or approval is not necessary. The above immunohistochemical markers and/or special stains have been reviewed by the Pathologist. GROSS DESCRIPTION A. Received in formalin labeled with the patient's name and date of . Designated as bladder tumor is a 2.5 g, 4.0 x 3.3 x 0.7 cm aggregate of fields-pink to red, irregular, rubbery and cauterized tissue fragments. Entirely submitted in 3 cassettes. ND 07/12/2025 CPT:48819,46823
[2025-07-12] MEDS: Lidocaine 1% (5 ml sdv) 5 ML Vial IV (10:38)
[2025-07-12] MEDS: fentaNYL 100 MCG/2 ML Ampul IV (10:59)
--- NOTE | 2025-07-12 11:14 | OP.PCM_ITS ---
Operative Report (Standard) Operative Information Date of Procedure: 07/12/25 Pre-Operative Diagnosis: Large bladder tumor Post-Operative Diagnosis: The same Surgery/Procedure Performed: Transurethral section of the large bladder tumor consumer marketing specialist: No Type of Anesthesia: General RN Documented Start/Stop Times: Operation Date: 07/12/25 10:30 Case Time Into Pre-Op 07/12/25 08:19 Out of Pre-Op 07/12/25 10:23 Anesthesia Start 07/12/25 10:29 Into Room 07/12/25 10:29 Procedure Start 07/12/25 10:48 Procedure End 07/12/25 11:10 Procedure Start Time: 10:48 Procedure Stop Time: 11:15 Select all DRAINS/GRAFTS/IMPLANTS that apply: Drains Drain details: Three-way catheter irrigation Estimated Blood Loss: 25 cc Specimen collected: Yes Description of specimen(s) removed: Bladder tumor Description of surgery: A 74-year-old male had gross hematuria CAT scan was done that demonstrated the thickened bladder cystoscopy was then done and demonstrated what appeared to be a tumor in the dome of the bladder up by the bladder neck anterior so he was taken back to the operating room after smooth induction of anesthesia he was placed in dorsolithotomy position went in the bladder with a resectoscope the tumor tumor was coming down from the anterior part of the bladder looked very hard it also looked invasive started resecting resected deep into the muscle and appeared to get the entire tumor out but this appeared to be an invasive tumor very hard looking tumor very concerning for invasion into the muscle for my perspective after resecting this tumor then he had a lot of of what 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 Surgical Findings: Large tumor > 5cm in the dome of the bladder resected the tumor appeared to be hard and sessile and invasive Complications Complications: No Admit VTE Documentation VTE Present on Admission: No VTE Mechan Device Prophylaxis: SCD's VTE Pharm Prophylaxis ordered?: No
--- NOTE | 2025-07-12 11:23 | PCM.POST.ANE ---
Anesthesia: Postop Eval I Current Vital Signs Temperature: 97.4 F Pulse Rate: 80 Blood Pressure: 123/91 Respiratory Rate: 18 Pulse Ox: 93 Oxygen Delivery Method: Room Air Assessment Airway patent: Yes Spontaneous unlabored respirations: Yes Mental status: Awake nausea: No Vomiting: No Anesthesia Complication: No Fluid Hydration Crystalloid volume administer (ml): 900 Total IV fluid infused: 900 Progress Note Anesthesia document: Postop Eval 1 completed: Yes
--- NOTE | 2025-07-12 11:58 | POSTOPAN2_ITS ---
Anesthesia Postop Eval I Sum Postop Eval Completion status Anesthesia document: Postop Eval 1 completed: Yes Anesthesia Postop Eval I Summary Anesthesia Postop Eval I Summary: Anesthesia Postop Eval I: Assessment Summary Airway patent Yes 07/12/25 11:29 CUSTODIAL AIDE.CSIR Spontaneous unlabored Yes 07/12/25 11:29 CUSTODIAL AIDE.CSIR respirations Mental status Awake 07/12/25 11:29 CUSTODIAL AIDE.CSIR nausea No 07/12/25 11:29 CUSTODIAL AIDE.CSIR Vomiting No 07/12/25 11:29 CUSTODIAL AIDE.CSIR Anesthesia Postop Eval I: Fluid Summary Crystalloid volume administer 900 07/12/25 11:29 CUSTODIAL AIDE.CSIR (ml) Colloids volume administered ( ml) Blood Product volume administered (ml) Total IV fluid infused 900 07/12/25 11:29 CUSTODIAL AIDE.CSIR Anesthesia Postop Eval I: Summary Notes Anesthesia Complication No 07/12/25 11:29 CUSTODIAL AIDE.CSIR Anesthesia Complication Comment: Post-operative progress note Anesthesia: Postop Eval II Evaluation Mental status: Awake Pain Level: 1 nausea: No Vomiting: No
--- NOTE | 2025-07-12 11:58 | PCM.POSTANE2 ---
Anesthesia Postop Eval I Sum Postop Eval Completion status Anesthesia document: Postop Eval 1 completed: Yes Anesthesia Postop Eval I Summary Anesthesia Postop Eval I Summary: Anesthesia Postop Eval I: Assessment Summary Airway patent Yes 07/12/25 11:29 DAY HAUL YOUTH SUPERVISOR.CSIR Spontaneous unlabored Yes 07/12/25 11:29 DAY HAUL YOUTH SUPERVISOR.CSIR respirations Mental status Awake 07/12/25 11:29 DAY HAUL YOUTH SUPERVISOR.CSIR nausea No 07/12/25 11:29 DAY HAUL YOUTH SUPERVISOR.CSIR Vomiting No 07/12/25 11:29 DAY HAUL YOUTH SUPERVISOR.CSIR Anesthesia Postop Eval I: Fluid Summary Crystalloid volume administer 900 07/12/25 11:29 DAY HAUL YOUTH SUPERVISOR.CSIR (ml) Colloids volume administered ( ml) Blood Product volume administered (ml) Total IV fluid infused 900 07/12/25 11:29 DAY HAUL YOUTH SUPERVISOR.CSIR Anesthesia Postop Eval I: Summary Notes Anesthesia Complication No 07/12/25 11:29 DAY HAUL YOUTH SUPERVISOR.CSIR Anesthesia Complication Comment: Post-operative progress note Anesthesia: Postop Eval II Evaluation Mental status: Awake Pain Level: 1 nausea: No Vomiting: No
[2025-07-12] MEDS: 0.9% Normal Saline (1000mL) 1,000 ML 125 ML IV (15:21)
[2025-07-12] MEDS: Cefazolin 1 GM/50 ML BAG IV (17:54)
[2025-07-13 02:12] VITALS: BP 134/87; PULSE 58; RESP 18; TEMP 36.6; O2SAT 94
[2025-07-13] MEDS: Cefazolin 1 GM/50 ML BAG IV (02:16)
[2025-07-13 08:15] VITALS: BP 132/82; PULSE 59; RESP 16; TEMP 35.8; O2SAT 96
--- NOTE | 2025-07-13 10:31 | DCINST_ITS ---
Discharge Instructions DC O2, CPAP, BIPAP needs Home O2 Discharge instructions: No Dressing / Incision Discharge Activity: Return to Normal Activity and May Not Drive (while taking narcotic pain medications.) Dressing / Incision Call your doctor if you observe: Fever of 101 or Higher Follow Up Care Please Follow Up With: Partha Malik MD When: Call [phone] for an appointment Test Results: Test results from this visit will be discussed in further detail at your follow- up appointment, if applicable. Discharge Plan Admission Admit Date/Time: 07/12/25 11:14 Primary Reason for Your Visit: resection of bladder tumor Attending Provider: Partha Malik Primary Care Provider: Libra Casanova Discharge Orders/Prescriptions Prescriptions: No Action citalopram 20 MG tablet 30 mg PO DAILY Referrals / Follow Up: Libra Casanova MD [Primary Care Provider, Family Practice] Partha Malik MD [Med Staff - Active Staff, Urology]
--- NOTE | 2025-07-13 10:35 | PCM.PN.BLA ---
Progress Note Patient doing well status post TURBT for an aggressive looking tumor irrigation of catheter overnight was stopped we will remove the catheter this morning if he is able to urinate okay can go home today without a catheter follow-up in the office in 2 weeks
[2025-07-13 14:19] VITALS: BP 120/69; PULSE 73; RESP 16; TEMP 36.3; O2SAT 94
== END 2025-07-13 18:22 | disposition home or self-care (01) ==
LOC: SDC 13:38 → MS3 13:38
PROVIDERS: Admitting Provider Urology; PCP Family Medicine; Referring Provider Urology; Visit Provider Urology
PROC: 0T5B8ZZ Destruction of Bladder, Via Natural or Artificial Opening Endoscopic (ICD-10-PCS; CPT 51720; principal; 2025-07-12 10:20)
DX: C67.1 Malignant neoplasm of dome of bladder (principal); N40.1 Benign prostatic hyperplasia with lower urinary tract symptoms; R31.0 Gross hematuria
CPT/HCPCS: 52240; 88305; 88307; 88342; 94668; 96361; 96365; 96366; 99221; J9280; G0378; J2405

== ENCOUNTER → 2025-08-02 | Outpatient (CLI) | payer MEDICARE, SELFPAY | END | disposition home or self-care (01) | LOC: CT 11:56 | PROVIDERS: PCP Family Medicine; Referring Provider Student in an Organized Health Care Education/Training Program; Visit Provider Student in an Organized Health Care Education/Training Program | DX: C67.9 Malignant neoplasm of bladder, unspecified (principal) | CPT/HCPCS: 71260; Q9967 ==

== ENCOUNTER → 2025-08-20 | Outpatient (CLI) | payer MEDICARE, SELFPAY ==
--- NOTE | 2025-08-20 10:22 | NM_ITS ---
PROCEDURE: BONE SCAN WHOLE BODY 08/20/2025 REASON FOR EXAM: STAGING U.B. CANCER TECHNIQUE: Procedure Code: NMBO Modality: NM Procedure: BONE SCAN WHOLE BODY Whole-body bone scan with anterior and posterior views. Imaging at 3.5 hours. RADIOPHARMACEUTICAL: 26.9 mCi Technetium-99m MDP IV COMPARISON: CT scan dated June 27, 2025. FINDINGS: Bones: Mild uptake seen throughout the thoracic spine suggestive of degenerative changes. Mild increased markings in the posterior right cervical spine suggestive of degenerative changes as well as medial compartment of the right knee joint. The bladder is contracted. Kidneys: Unremarkable. NM/Bone Scan Whole Body IMPRESSION: No evidence of bony metastasis. Reading Location: [place] [id number]
== END | disposition home or self-care (01) ==
LOC: NM 10:19
PROVIDERS: PCP Family Medicine; Referring Provider Internal Medicine Hematology & Oncology; Visit Provider Internal Medicine Hematology & Oncology
DX: C67.3 Malignant neoplasm of anterior wall of bladder (principal)
CPT/HCPCS: 78306; A9503

== ENCOUNTER 2025-08-22 09:21 | Day surgery (SDC) | payer MEDICARE, SELFPAY ==
[2025-08-22] VITALS (9 sets, daily range): BP systolic 128–139; BP diastolic 67–91; PULSE 74–78; RESP 16–18; TEMP 36.2–36.4; O2SAT 93–97; BMI 34.5
[2025-08-22] MEDS: Lactated Ringers 1,000 ML 15 ML IV (10:01)
--- NOTE | 2025-08-22 10:37 | PRE.ANES_ITS ---
ASA Classification* ASA Classification ASA Classification: 2 Assessment & Plan Anesthesia* Anesthesia Assessment Anesthesia Assessment: Discussed sedation and/or anesthesia options, risks, benefits, and alternatives with patient/parents/legal guardian/POA. Questions invited. The patient/parents/legal guardian/POA seems to understand and agrees to proceed with anesthesia plan. Reviewed the physical assessment, medical history, allergy history and patient home medications list prior to surgery/procedure/anesthetic and documented any changes. Performed airway and anesthesia risk assessments. Anesthesia Type Anesthesia Type: MAC History Source History Obtained from:: Patient and Chart Anesthesia Focused Assessment* Temperature: 97.5 F Pulse Rate: 77 Blood Pressure: 139/79 Respiratory Rate: 16 Pulse Ox: 97 Oxygen Delivery Method: Room Air Airway Assessment Mouth opens: >3 cm Mallampati Score: III Teeth Condition: Caps/Crowns (Patient has several crowns. They are all tight.) and Partial (Patient has an upper partial. It will stand.) Neck Range of motion (ROM): Limited ROM (Severe Restriction) Labs Anesthesia Preop lab: CBC WBC, (4.4-11.0) 5.5 K/mm3 07/02/25, 15:12 RBC, (4.6-6.2) 4.57 M/mm3 L 07/02/25, 15:12 Hgb, (13.0-16.5) 14.3 g/dL 07/02/25, 15:12 Hct, (40-54) 43.3 % 07/02/25, 15:12 Plt Count, (150-450) 272 K/mm3 07/02/25, 15:12 CHEMISTRY Potassium, (3.3-5.1) 4.2 mmol/L 07/02/25, 15:12 Sodium, (133-145) 138 mmol/L 07/02/25, 15:12 Magnesium, (1.6-2.6) 2.2 mg/dL 06/09/23, 15:18 BUN, (4-19) 12 mg/dL 07/02/25, 15:12 Creatinine, (0.70-1.20) 0.95 mg/dL 07/02/25, 15:12 Glucose, (70-99) 105 mg/dL H 07/02/25, 15:12 TSH, (0.358-3.74) 2.48 uIU/mL 06/09/23, 15:18 COAG Pre-Assessment Diagnosis/Proposed Procedure Planned Operative Procedure(s): (R) Insertion, Vascular Port Right Possible Left Anesthesia History Anesthesia History - palliative care coordinator: Anesthesia History - palliative care coordinator Hx Hospitalization Yes 08/19/25 15:56 Any Problems With Anesthesia No 08/19/25 15:56 Cholinesterase deficiency No 08/19/25 15:56 You/Your Family Experience No 08/19/25 15:56 fever (hyperthermia) with Relationship Recent Exposure to Contagious No 08/22/25 09:50 Disease Does patient have nerve No 08/19/25 15:56 stimulator Patient instructed to have device shut off --Does patient have Pacemaker No 08/22/25 09:55 or ICD? When Was Last Pacemaker Check QUESTION #4 FULL TEXT: You/Your Family Experience fever (hyperthermia) with Anesthesia Last Oral Intake Last Oral intake: Last Oral Intake NPO since 23:30 08/22/25 09:55 Meds taken in AM with sips of No 08/22/25 09:55 water? Meds patient instructed to take am of surgery PONV PONV - palliative care coordinator: PONV - palliative care coordinator Female No 08/19/25 15:56 HX of Motion Sickness No 08/19/25 15:56 HX of N/V After Surgery No 08/19/25 15:56 Non-Smoker Yes 08/19/25 15:56 Duration of Surgery greater Yes 08/19/25 15:56 than 60 minutes Number of Risk Factors 2 08/19/25 15:56 PONV Score Moderate Risk 08/19/25 15:56 Height & Weight Height & Weight: Anesthesia: Height & Weight Height 6 ft 1 in 08/22/25 09:55 Weight: 118.841 kg 08/22/25 09:55 Body Mass Index (BMI) 34.5 08/22/25 09:55 Respiratory Assessment Respiratory Assessment - palliative care coordinator: Respiratory Tract Infection Hx - palliative care coordinator Hx Respiratory Tract Infection No 08/19/25 15:56 STOP Sleep Apnea STOP Sleep Apnea - palliative care coordinator: STOP Sleep Apnea - palliative care coordinator Hx Hypertension No 08/19/25 15:56 Hx Sleep Apnea No 08/19/25 15:56 CPAP BIPAP Do you snore loudly (louder No 08/19/25 15:56 than talking or can be heard Do you often feel tired/ No 08/19/25 15:56 fatigued/ sleepy during daytime? Has anyone observed you stop No 08/19/25 15:56 breathing during sleep? STOP Results Negative 08/19/25 15:56 QUESTION #5 FULL TEXT : Do you snore loudly (louder than talking or can be heard through closed doors)? Tobacco Use History Tobacco Use History - palliative care coordinator: Tobacco Use History - palliative care coordinator Tobacco Use Smoking Status Never smoker 08/19/25 15:56 Hx Tobacco Use No 08/19/25 15:56 Years Smoking Packs Smoked per Day Smoking Cessation Date was within the last 15 years Hx Smoking Cessation Date Hx Smoking Cessation Counseling Hematologic Medial History Hematologic Hx - palliative care coordinator: Hematologic Medical Hx - coloring checker Hx of Blood Transfusion No 08/19/25 15:56 Hx of Transfusion in last 3 No 08/19/25 15:56 Months Date of Last Transfusion (if within last 3 months) Ever experience any problems No 08/19/25 15:56 with transfusion(s)? Specify any problems Hx of Preganancy in last 3 N/A 08/19/25 15:56 Months Nurse Filling Out Transfusion MGRIFFITH 08/19/25 15:56 & Questions: Date: 08/19/25 08/19/25 15:56 Time: 15:58 08/19/25 15:56 Patient unable to answer at this time (ie. confused, unrespo /Reproduction History /Reproductive History - palliative care coordinator: /Reproductive Hx- palliative care coordinator Hx Now Gestational Age (in weeks): EDC: Hx Hx Para Hx Section SAB Does the father of the baby or his family experience fever w Father of the baby Malignant Hypertension history comment Active Medications Active Medications: Current Medications Generic Name Dose Route Start Last Admin Trade Name Freq PRN Reason Stop Dose Admin Lactated Ringer's 1,000 mls @ 15 mls/hr 08/22/25 09:45 08/22/25 10:01 IV 15 mls/hr .Q48H SHAUNA Administration PFSH Medical History Encounter for education Tinnitus Hearing loss Anxiety Bladder cancer Wears partial dentures Non-smoker Home Medications Medication Instructions Recorded Last Taken Type citalopram 20 mg tablet 30 mg PO DAILY 11/25/2008/10 07:00 History mecobalamin (vitamin B12) 1,000 1,000 mcg PO QDAY 07/1108/21/25 07:00 History mcg lozenges cholecalciferol (vitamin D3) 25 25 mcg PO DAILY 08/21/25 History mcg (1,000 unit) tablet (Vitamin D3) Allergy/AdvReac Type Severity Reaction Status Date / Time No Known Allergies Allergy Verified 08/22/25 09:47 Family History Brother Cancer skin Aunt Cancer Uncle Cancer Surgical History History of colonoscopy Hx of cystoscopy H/O Spinal surgery Hx of tonsillectomy Social History Smoking Status: Never smoker alcohol intake: never substance use type: does not use Review of Systems (Anesthesia) ROS Narrative System reviewed and no additional complaints, except as documented.
--- NOTE | 2025-08-22 10:45 | HP.PCM_ITS ---
HPI - General General Date of Admission: 08/22/25 Date of Service: 08/22/25 Chief Complaint: Port placement HPI Narrative DEEPTHI CHUNG, is a 74 M who presents for elective Mediport placement. Patient recently diagnosed with bladder cancer. His oncology team is recommending chemotherapy. Patient was recently seen to discuss Mediport placement. He presents today to have it placed [facility] Medical History Encounter for education Tinnitus Hearing loss Anxiety Bladder cancer Wears partial dentures Non-smoker Home Medications Medication Instructions Recorded Last Taken Type citalopram 20 mg tablet 30 mg PO DAILY 11/25/2008/10 07:00 History mecobalamin (vitamin B12) 1,000 1,000 mcg PO QDAY 07/1108/21/25 07:00 History mcg lozenges cholecalciferol (vitamin D3) 25 25 mcg PO DAILY 08/21/25 History mcg (1,000 unit) tablet (Vitamin D3) Allergy/AdvReac Type Severity Reaction Status Date / Time No Known Allergies Allergy Verified 08/22/25 09:47 Family History Brother Cancer skin Aunt Cancer Uncle Cancer Surgical History History of colonoscopy Hx of cystoscopy H/O Spinal surgery Hx of tonsillectomy Social History Smoking Status: Never smoker alcohol intake: never substance use type: does not use Vital Signs Vital Signs Vital Signs: 08/22/25 09:50 08/22/25 09:55 08/22/25 10:44 Temperature 97.5 F L 97.5 F L Temperature Source Temporal Pulse Rate 77 77 Respiratory Rate 16 16 Respiratory Pattern Normal Blood Pressure 139/79 H 139/79 H Blood Pressure Mean 99 Blood Pressure Source Monitor Blood Pressure Position Semi-Fowlers Blood Pressure Location Left Arm Pulse Ox 97 97 Oxygen Delivery Method Room Air Room Air Weight Weight: 262 lb Body Mass Index (BMI) 34.5 Physical Exam Const alert, oriented x3 and no apparent distress Assessment & Plan Assessment/Plan (1) Bladder cancer: QUALIFIERS: Bladder location: anterior wall Qualified Code(s): C67.3 - 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 Discussed details of the planned procedure as well as risks and benefits. He wishes to proceed
--- NOTE | 2025-08-22 10:45 | EX.PCM.DISCH ---
Discharge Instructions Diet Discharge Diet: Light diet - advance as tolerated Activity Return to work on:: 08/22/25February shower in (days): 1 Ice area for (Minutes): 30 Dressing / Incision Call your doctor if your incision/area has: Continuous Slow Oozing, Sudden Increased Bleeding, Increased Pain/ Swelling, Increased Redness, Foul Smelling Discharge and Swelling at the incision site Call your doctor if you observe: Fever of 101 or Higher Remove Dressing in: 3 days Cleanse incision/area with: Soap & Water Follow Up Care Please Follow Up With: Michael Nazario MD When: as needed Test Results: Test results from this visit will be discussed in further detail at your follow-up appointment, if applicable. Discharge Plan Admission Primary Reason for Your Visit: Port placement Attending Provider: Michael Nazario Primary Care Provider: Libra Casanova Instructions Print Language: Vietnamese Discharge Orders/Prescriptions Prescriptions: New oxycodone 5 mg tablet 5 mg PO Q8H PRN (Reason: pain) 3 Days Qty: 7 0RF Continued mecobalamin (vitamin B12) 1,000 mcg lozenge 1,000 mcg PO QDAY Rx Instructions: allow to dissolve in mouth OR may chew lightly before swallowing citalopram 20 MG tablet 30 mg PO DAILY cholecalciferol (vitamin D3) [Vitamin D3] 25 mcg (1,000 unit) tablet 25 mcg PO DAILY Referrals / Follow Up: Libra Casanova MD [Primary Care Provider, Family Practice] Disposition Disposition (needs filled in before D/C Order can be placed): Home, Self Care
[2025-08-22] MEDS: Lidocaine 1% (5 ml sdv) 5 ML Vial IV (11:03)
[2025-08-22] MEDS: Midazolam 2 MG/2 ML Syringe IV (11:03)
[2025-08-22] MEDS: Lactated Ringers 500 ML IV (11:03)
[2025-08-22] MEDS: Cefazolin 1 GM/5 ML Vial 2 GM IV (11:03)
[2025-08-22] MEDS: Lidocaine 1% /Epi 1:100 (20ml) 20 ML Vial (11:21)
--- NOTE | 2025-08-22 12:18 | OP.PCM_ITS ---
Operative Report (Standard) Operative Information Date of Procedure: 08/22/25 Pre-Operative Diagnosis: Bladder cancer Post-Operative Diagnosis: Same Surgery/Procedure Performed: Right IJ Mediport placement with C arm hotel administrative assistant: No Type of Anesthesia: Local and MAC RN Documented Start/Stop Times: Operation Date: 08/22/25 11:00 Case Time Into Pre-Op 08/22/25 09:33 Out of Pre-Op 08/22/25 10:55 Anesthesia Start 08/22/25 11:02 Into Room 08/22/25 11:02 Procedure Start 08/22/25 11:23 Procedure End 08/22/25 12:06 Anesthesia End 08/22/25 12:12 Out of Room 08/22/25 12:12 Into Recovery 08/22/25 12:13 Procedure Start Time: Procedure Stop Time: 12:06 Select all DRAINS/GRAFTS/IMPLANTS that apply: Implanted device (PowerPort MRI compatible implanted port) Implanted device details: PowerPort MRI compatible implanted port Estimated Blood Loss: 10 mL Specimen collected: No Description of surgery: The patient is a 74-year-old male who was recently diagnosed with bladder cancer. His oncology team is recommending chemotherapy. A Mediport was recommended. Patient presents today for placement of the Mediport. He was brought to the operating room today following informed consent. Preoperative antibiotics were given and a timeout was performed. He is placed supine on the operative table with arms outstretched and arm boards general anesthesia was induced. Chest and neck region was prepped and draped in the usual manner on the right. Ultrasound was used to identify the right internal jugular vein. Local anesthetic was infiltrated and then the vein was able to be cannulated on the first pass. Guidewire was threaded through the aperture of the needle. This was then secured to the drapes using a curved hemostat. C-arm was then brought into confirm appropriate placement of the wire. Region in the right upper chest was then selected for placement of the port hub. Every effort was made to make this is superior as possible. Skin incision was made after injecting local anesthetic. #15 blade was used to make this incision. Bovie electrocautery was then used to dissect down through subcutaneous tissue. A subcutaneous pocket was created. This was fashioned so that the port was fairly superficial and should be easily identifiable when used. The 15 blade was then used to make a small skin incision at the entry point of the wire. A curved hemostat was then used to create a small subcutaneous pocket in this area as well to facilitate the curvature of the tubing. The tubing was then tunneled from the larger incision on the chest up and out through the smaller incision in the neck. Tubing was then trimmed to about 27 cm. It was then attached to the hub and the hub was then affixed to the chest subcutaneous tissues using Prolene suture x 2. The dilator and tear-away sheath were then threaded over the guidewire and advanced to the hub. The dilator and wire were then removed thus leaving the sheath in place. The tubing was then threaded down the sheath. This appeared to be in good position. The sheath was then extracted while the tubing was advanced. Once the sheath was extracted, the port was tested.. It dennis and flushed easily with injectable saline. Every effort was made to make sure that there was no acute kinks or bends in the tubing especially at the neck. The por t was then dennis and flushed with heparin solution. The incisions were then closed using 3-0 Vicryl and 4-0 Vicryl. Steri-Strips were applied as dressing along with OpSite's. He was awakened from anesthesia and taken recovery in good condition Surgical Findings: See procedure note Complications Complications: No Admit VTE Documentation VTE Present on Admission: Yes VTE Mechan Device Prophylaxis: SCD's VTE Pharm Prophylaxis ordered?: No Reason prophylaxis not ordered: Treatment Not Indicated
--- NOTE | 2025-08-22 12:30 | RAD_ITS ---
PROCEDURE: CXR FOR LINE PLACEMENT 08/22/2025 REASON FOR EXAM: Port placement. TECHNIQUE: Procedure Code: [id number] Modality: DX Procedure: CXR FOR LINE PLACEMENT COMPARISON: None FINDINGS: A right-sided port a catheter has been placed. The tip is at the junction of the superior vena cava and right atrium. EKG electrodes are seen. Hyperinflation. Increased linear markings at the left lung base suggestive of linear atelectasis and/or linear scarring. RAD/CXR for Line Placement IMPRESSION: The tip of the right port a catheter is at the junction of the superior vena ca va and right atrium. Reading Location: [facility]
--- NOTE | 2025-08-22 12:32 | PCM.POST.ANE ---
Anesthesia: Postop Eval I Current Vital Signs Temperature: 97.2 F Pulse Rate: 74 Blood Pressure: 135/91 Respiratory Rate: 18 Pulse Ox: 95 Oxygen Delivery Method: Room Air Assessment Airway patent: Yes Spontaneous unlabored respirations: Yes Mental status: Awake and Calm nausea: No Vomiting: No Anesthesia Complication: No Fluid Hydration Crystalloid volume administer (ml): 500 Total IV fluid infused: 500 Progress Note Anesthesia document: Postop Eval 1 completed: Yes
--- NOTE | 2025-08-22 14:30 | POSTOPAN2_ITS ---
Anesthesia Postop Eval I Sum Postop Eval Completion status Anesthesia document: Postop Eval 1 completed: Yes Anesthesia Postop Eval I Summary Anesthesia Postop Eval I Summary: Anesthesia Postop Eval I: Assessment Summary Airway patent Yes 08/22/25 12:32 GRAPHIC DESIGN INTERN.SKOBY Spontaneous unlabored Yes 08/22/25 12:32 GRAPHIC DESIGN INTERN.WING respirations Mental status Awake,Calm 08/22/25 12:32 GRAPHIC DESIGN INTERN.SKOBY nausea No 08/22/25 12:32 GRAPHIC DESIGN INTERN.SKOBY Vomiting No 08/22/25 12:32 GRAPHIC DESIGN INTERN.SKOBY Anesthesia Postop Eval I: Fluid Summary Crystalloid volume administer 500 08/22/25 12:32 GRAPHIC DESIGN INTERN.SKOBY (ml) Colloids volume administered ( ml) Blood Product volume administered (ml) Total IV fluid infused 500 08/22/25 12:32 GRAPHIC DESIGN INTERN.ROSEANNEOBAna Anesthesia Postop Eval I: Summary Notes Anesthesia Complication No 08/22/25 12:32 GRAPHIC DESIGN INTERN.ROSEANNEOBAna Anesthesia Complication Comment: Post-operative progress note Anesthesia: Postop Eval II Evaluation Mental status: Awake and Calm Pain Level: 0 nausea: No Vomiting: No Complications Anesthesia Complication: No
--- NOTE | 2025-08-22 14:30 | PCM.POSTANE2 ---
Anesthesia Postop Eval I Sum Postop Eval Completion status Anesthesia document: Postop Eval 1 completed: Yes Anesthesia Postop Eval I Summary Anesthesia Postop Eval I Summary: Anesthesia Postop Eval I: Assessment Summary Airway patent Yes 08/22/25 12:32 HAND COREMAKER.SKOBY Spontaneous unlabored Yes 08/22/25 12:32 HAND COREMAKER.WING respirations Mental status Awake,Calm 08/22/25 12:32 HAND COREMAKER.SKOBY nausea No 08/22/25 12:32 HAND COREMAKER.SKOBY Vomiting No 08/22/25 12:32 HAND COREMAKER.SKOBY Anesthesia Postop Eval I: Fluid Summary Crystalloid volume administer 500 08/22/25 12:32 HAND COREMAKER.SKOBY (ml) Colloids volume administered ( ml) Blood Product volume administered (ml) Total IV fluid infused 500 08/22/25 12:32 HAND COREMAKER.ROSEANNEOBAna Anesthesia Postop Eval I: Summary Notes Anesthesia Complication No 08/22/25 12:32 HAND COREMAKER.ROSEANNEOBAna Anesthesia Complication Comment: Post-operative progress note Anesthesia: Postop Eval II Evaluation Mental status: Awake and Calm Pain Level: 0 nausea: No Vomiting: No Complications Anesthesia Complication: No
== END 2025-08-22 13:55 | disposition home or self-care (01) ==
LOC: SDC 09:25 → AC 09:27
PROVIDERS: PCP Family Medicine; Referring Provider Surgery; Visit Provider Surgery
DX: Z45.2 Encounter for adjustment and management of vascular access device (principal); C67.3 Malignant neoplasm of anterior wall of bladder
CPT/HCPCS: 36561; 00532; 71045; 77001; C1788; J2405

== ENCOUNTER 2025-09-26 16:24 | Inpatient (IN) | payer MEDICARE, SELFPAY ==
[2025-09-26] VITALS (12 sets, daily range): BP systolic 131–184; BP diastolic 81–96; PULSE 82–114; RESP 18–30; TEMP 36.6–36.9; O2SAT 87–96; BMI 34.9; BMI 33.3
--- NOTE | 2025-09-26 16:58 | RAD_ITS ---
PROCEDURE: CHEST 1 VIEW (PORTABLE) 09/26/2025 REASON FOR EXAM: DYSPNEA TECHNIQUE: Frontal view of the chest. COMPARISON: 08/22/2025 FINDINGS: Devices: Right chest wall MediPort with catheter tip at the superior cavoatrial junction. Lungs/Pleura: No focal consolidation, pneumothorax or sizable pleural effusion. Heart/Mediastinum: Normal in size. No vascular congestion. Bones/Soft tissues: Mild degenerative changes of the visualized spine and bilateral shoulders. RAD/Chest 1 View (Portable) IMPRESSION: No evidence of acute pulmonary disease. Reading Location: [id number]
--- NOTE | 2025-09-26 16:58 | EKG12_ITS ---
Test Reason : SOB Blood Pressure : */* mmHG Vent. Rate : 110 BPM Atrial Rate : * BPM P-R Int : * ms QRS Dur : 88 ms QT Int : 362 ms P-R-T Axes : * 4 53 degrees QTcB Int : 489 ms Sinus tachycardia Otherwise normal ECG Confirmed by Jhonny Moe ([id number]), subeditor JOHN CASTANEDA ([id number]) on 09/27/2025 10:39:17 AM Referred By: SILVIA Confirmed By: Jhonny Moe
--- NOTE | 2025-09-26 17:01 | ED.VIS.DYS ---
HPI History of Present Illness Chief Complaint: Shortness of Breath Informant: patient Narrative Narrative: 74-year-old male brought himself to the emergency room today show chief complaint of shortness of breath. Patient just completed chemoradiation for bladder cancer. He states his last radiation was on the . The week before he finished his last chemotherapy. He states that he does not have any known lung conditions that he is treated for. The day after radiation he began to have a slight sore throat and sneezing. He stated that he has subsequently developed significant shortness of breath and coughing up large amounts of phlegm. He denies any leg swelling. No known cardiac history. [facility] Medical History Encounter for chemotherapy management Encounter for education Tinnitus Hearing loss Anxiety Bladder cancer Wears partial dentures Non-smoker Home Medications ?Medication ?Instructions ?Recorded ?Last Taken ?Type citalopram 20 mg tablet 30 mg PO DAILY 11/25/20 09/26/25 History mecobalamin (vitamin B12) 1,000 1,000 mcg PO QDAY 07/29/25 09/26/25 History mcg lozenges cholecalciferol (vitamin D3) 25 25 mcg PO DAILY 08/22/25 09/26/25 History mcg (1,000 unit) tablet (Vitamin D3) lorazepam 1 mg tablet 1 mg PO Q12H PRN anxiety 09/26/25 09/26/25 History Allergy/AdvReac Type Severity Reaction Status Date / Time No Known Allergies Allergy Verified 09/26/25 16:29 Family History Brother Cancer skin Aunt Cancer Uncle Cancer Surgical History History of colonoscopy Hx of cystoscopy H/O Spinal surgery Hx of tonsillectomy Social History Smoking Status: Never smoker alcohol intake: never substance use type: does not use ROS ROS ED Constitutional Constitutional ED: Denies chills, fever(s) or weight loss Eyes Eyes: Denies change in vision or diplopia ENT ENT ED: Reports rhinorrhea and sore throat; Denies ear pain Cardiovascular Cardiovascular: Reports racing heartbeat; Denies chest pain, orthopnea or palpitations Respiratory/Chest Respiratory/Chest: Reports cough, dyspnea, dyspnea on exertion and sputum; Denies orthopnea Gastrointestinal Gastrointestinal: Denies abdominal pain, diarrhea, nausea or vomiting Genitourinary Genitourinary ED: Denies dysuria, hematuria or urinary frequency Musculoskeletal Musculoskeletal: Reports myalgias; Denies arthralgias Integumentary Denies abscess or rash Neurologic Neurologic: Denies headache(s) or weakness Psychiatric Psychiatric: Denies anxiety, depression, suicidal ideation or suicidal thoughts Endocrine Endocrinology: Denies polydipsia, polyphagia or polyuria Allergic/Immunologic Allergic/Immunologic ED: Denies mouth swelling, tongue swelling or urticaria EXAM Physical Exam Const Vital Signs: 09/26/25 16:27 09/26/25 16:30 09/26/25 16:30 Temperature 98.4 F 98.4 F Temperature Source Oral Oral Pulse Rate 114 H 114 H Respiratory Rate 30 H 30 H Respiratory Effort Respiratory Depth Respiratory Pattern Blood Pressure 145/82 H 145/82 H Blood Pressure Mean 103 103 Pulse Ox 87 93 93 Oxygen Delivery Method Room Air Nasal Cannula Nasal Cannula Oxygen Flow Rate (L/min) 4 4 09/26/25 16:57 09/26/25 17:13 09/26/25 17:19 Temperature Temperature Source Pulse Rate 110 H Respiratory Rate 27 H Respiratory Effort Short of Breath Labored Accessory Muscle Use Respiratory Depth Deep Respiratory Pattern Tachypnea Tachypnea Blood Pressure Blood Pressure Mean Pulse Ox Oxygen Delivery Method Room Air Nasal Cannula Oxygen Flow Rate (L/min) 4 09/26/25 17:30 09/26/25 18:09 09/26/25 19:00 Temperature 98.4 F 98.1 F 98 F Temperature Source Oral Temporal Oral Pulse Rate 104 H 96 90 Respiratory Rate 25 H 24 H 22 H Respiratory Effort Respiratory Depth Respiratory Pattern Blood Pressure 139/85 H 146/89 H 184/96 H Blood Pressure Mean 103 108 125 Pulse Ox 91 92 95 Oxygen Delivery Method Nasal Cannula Room Air Nasal Cannula Oxygen Flow Rate (L/min) 4 4 09/26/25 20:00 09/26/25 20:20 09/26/25 21:00 Temperature 98.2 F 98.2 F 98.2 F Temperature Source Oral Oral Pulse Rate 85 83 82 Respiratory Rate 20 H 18 19 H Respiratory Effort Respiratory Depth Respiratory Pattern Blood Pressure 131/89 H 131/89 H 150/95 H Blood Pressure Mean 103 103 113 Pulse Ox 95 96 96 Oxygen Delivery Method Room Air Room Air Oxygen Flow Rate (L/min) Positive well nourished, well developed and obese General Appearance ED: well developed; Negative for NAD Nutritional Appearance: obese HEENT Reports normocephalic, head/scalp atraumatic and moist mucous membranes Eyes PERRL and EOMs intact bilaterally Neck no lymphadenopathy, supple and no JVD Resp Resp Narrative: Patient is clearly tachypneic. He has audible rhonchi and wheezing from across the room. He is using abdominal musculature to breathe. Cardio regular rate, regular rhythm and no murmurs Rate: tachycardic GI normal to inspection, nondistended, normoactive bowel sounds and non-tender Palpation: soft Back/Spine no CVA tenderness and normal ROM Extremity normal to inspection General Extremety ED: Negative for edema General Extremity: Negative for edema Neuro oriented x3 and CN's II-XII intact bilaterally Sensorium / Orientation: alert Motor Exam: strength 5/5 throughout Psych mental status grossly normal Mood & Affect: Negative for depressed or tearful Skin no rashes or lesions noted and no wounds MDM MDM MDM Narrative Medical decision making narrative: Differential diagnosis includes but not limited to bronchospasm pneumonia pleural effusion anemia electrolyte abnormalities sepsis pulmonary embolism pericardial effusion viral syndrome liver dysfunction renal dysfunction coagulation Patient was noted to be hypoxic in triage and was placed on supplemental oxygen. White count is 3.2 with a hemoglobin 11.9 and platelet count of 126. INR 1.1. Normal lactic acid. Troponins are 23 and 33. Normal renal function normal electrolytes. Urinalysis greater than 100 red cells greater than 100 white cells 1+ bacteria positive nitrates. Patient had blood and urine culture sent. My independent interpretation of the chest x-ray is no definitive infiltrate. A CTA of the chest was obtained which does not demonstrate an obvious pulmonary embolism. Patient received breathing treatments and Solu-Medrol and feels substantially better. He is still requiring supplemental oxygen. He also received Rocephin and azithromycin. Plan of care is admission into hospital. History & Record Review Discussion w/independent historian: Patient Additional record(s) reviewed:: Prior outpatient record and Prior labs Lab Data Attestation: I reviewed the patient's lab results. Labs: Laboratory Results - last 24 hr 09/26/25 09/26/25 09/26/25 17:10 18:10 19:23 WBC 3.2 L RBC 3.84 L Hgb 11.9 L Hct 36.1 L MCV 94.0 MCH 31.0 MCHC 33.0 RDW Std Deviation 48.3 H RDW Coeff of Jono 14.7 H Plt Count 126 L MPV 8.4 Immature Gran % (Auto) 0.000 Neut % (Auto) 87.9 H Lymph % (Auto) 5.3 L [place] % (Auto) 5.9 Eos % (Auto) 0.6 Baso % (Auto) 0.3 Absolute Neuts (auto) 2.8 Absolute Lymphs (auto) 0.17 L Nucleated RBC % 0 PT 14.5 INR 1.1 APTT 22.2 L Sodium 136 Potassium 3.8 Chloride 100 Carbon Dioxide 23.6 Anion Gap 12 BUN 15 Creatinine 1.08 Estim Creat Clear Calc 79.24 Est GFR (MDRD) Non-Af 72 BUN/Creatinine Ratio 13.4 Glucose 140 H Lactic Acid 1.4 Calcium 9.1 Total Bilirubin 0.95 AST 18 ALT 12 Alkaline Phosphatase 73 Troponin T High Sens 23 H Troponin T Hi Sens 2 Hr 33 H NT pro BNP II 375 Total Protein 6.7 Albumin 4.1 Globulin 2.6 Albumin/Globulin Ratio 1.6 Urine Color Elaine Urine Clarity Cloudy Urine pH 5.0 Ur Specific [place] 1.025 Urine Protein 500 H Urine Glucose (UA) 50 H Urine Ketones 5 H Urine Occult Blood 250 H Urine Nitrite Positive H Urine Bilirubin 1 H Urine Urobilinogen Normal Ur Leukocyte Esterase 100 H Urine RBC > 100 SEEN Urine WBC >100 SEEN Ur Squamous Epith Cells 0 SEEN Urine Bacteria 1+ Urine Mucus 2+ Radiography Diagnostic Testing: Clinical Impression(s) from Imaging Studies Chest X-Ray 09/26/25 16:58 IMPRESSION: No evidence of acute pulmonary disease. Reading Location: [facility] Chest CTA 09/26/25 19:08 IMPRESSION: 1. Limited evaluation of the mid and lower lung subsegmental pulmonary arteries (due to respiratory motion). No evidence of PE in the remaining pulmonary arteries. 2. Mild bilateral bronchial wall thickening, suggesting infectious or inflammatory small airways disease. 3. Coronary artery calcification is present. Reading Location: [facility] EKG Initial EKG: Attestation: I personally reviewed and interpreted this EKG as follows: Comments: Sinus tachycardia ventricular rate of 110 bpm Management Discussion w/another healthcare provider: Hospitalist Discharge Plan Dx/Rx/DC Orders Clinical Impression: Acute bronchitis, Acute bronchospasm, Acute hypoxemic respiratory failure, UTI (urinary tract infection) Disposition Disposition: Acute Care Hospital [facility]
[2025-09-26] MEDS: Albuterol 2.5 MG/3 ML VIAL.NEB. INHALATION (17:12)
[2025-09-26 17:34] LABS: Hematocrit 36.1 % (40-54); Hemoglobin 11.9 g/dL (13.0-16.5); Immature Granulocytes Count 0.000 X10^3/uL (0.0-0.0); Mean Corp Hgb Conc 33.0 g/dL (32-36); Mean Corpuscular Volume 94.0 fL (80-94); Mean Platelet Vol. 8.4 fl (6.2-12.0); NRBC Flagged by Analyzer 0 % (0-5); POSITIVE DIFFERENTIAL YES; Platelet Count 126 K/mm3 (150-450); RBC Distribution Width CV 14.7 % (11.6-14.6); RBC Distribution Width SD 48.3 fl (35.1-43.9); Red Blood Count 3.84 M/mm3 (4.6-6.2); White Blood Count 3.2 K/mm3 (4.4-11.0)
[2025-09-26 17:43] LABS: Prothrombin Time (Protime)PT. 14.5 SECONDS (11.7-14.9)
[2025-09-26 17:44] LABS: Partial Thromboplast Time 22.2 Seconds (24.1-36.2)
[2025-09-26 18:06] LABS: AST(SGOT) 18 U/L (<=37); Alanine Aminotransfer ALT/SGPT 12 U/L (<=46); Albumin, Serum 4.1 g/dL (3.4-4.8); Alkaline Phosphatase 73 U/L (40-129); Anion Gap 12 (5-15); BUN 15 mg/dL (4-19); BUN/Creat Ratio 13.4 RATIO (10-20); Calcium,Total 9.1 mg/dL (7.6-11.0); Carbon Dioxide 23.6 mmol/L (21.0-32.0); Chloride 100 mmol/L (98-108); Estimated Creatinine Clearance 79.24 ml/min (50-250); Globulin 2.6 g/dL (2.2-4.2); Glucose 140 mg/dL (70-99); Potassium 3.8 mmol/L (3.3-5.1); Pro- Brain NATRIURETIC PEPTIDE 375 pg/mL (<=900)
[2025-09-26 18:17] LABS: Squamous Epithelial Cells - UA 0 SEEN /hpf (0-5)
[2025-09-26 18:30] LABS: Color, Urine Amber (Yellow); Glucose, Dipstick 50 mg/dl (Normal); Ketone-Dipstick 5 mg/dl (Negative); Leukocyte Esterase-Dipstick 100 /ul (Negative); Nitrite-Dipstick Positive (Negative); Occult Blood-Urine 250 /ul (Negative); Protein-Dipstick 500 mg/dl (Negative); Specific Gravity, Urine 1.025 (1.002-1.030)
[2025-09-26 18:31] LABS: Urine Bilirubin Dipstick 1 mg/dL (Negative)
[2025-09-26 18:34] LABS: Troponin T High Sensitivity 23 ng/L (<=22)
[2025-09-26 18:49] LABS: Red Blood Cells-Urine > 100 SEEN /hpf (0-5)
[2025-09-26 19:07] LABS: Mucous, Urine 2+ /hpf (<or=2+)
--- NOTE | 2025-09-26 19:08 | CT_ITS ---
PROCEDURE: CTA CHEST W/WO CONTRAST 09/26/2025 REASON FOR EXAM: SOB and wheezing. History of bladder cancer. PULMONARY EMBOLISM TECHNIQUE: Procedure Code: [id number] Modality: CT Procedure: CTA CHEST W/WO CONTRAST Axial CTA images obtained of the chest after the administration of intravenous contrast. MIP reconstructed images were created and reviewed. CONTRAST: Isovue 370 VOLUME: 83 mL One or more dose reduction techniques were used (e.g., Automated exposure control, adjustment of the mA and/or kV according to patient size, use of iterative reconstruction technique). RADIATION DOSE SUMMARY: CTDlvol: 7.12, 15.37 mGy DLP: 523 mGycm COMPARISON: 08/02/2025 FINDINGS: PULMONARY ARTERIES Respiratory motion limits evaluation of the subsegmental pulmonary arteries in the mid and lower lungs bilaterally. No intraluminal filling defect suspicious for PE in the remaining pulmonary arteries. AORTA No thoracic aortic aneurysm or dissection. TRACHEA/AIRWAYS Mild diffuse bronchial wall thickening bilaterally. LUNGS No pulmonary mass or airspace consolidation. Minimal dependent atelectasis bilaterally. PLEURAL SPACES No pleural effusion. No pneumothorax. HEART No cardiomegaly. No significant pericardial effusion. Left atrial appendage present. Coronary artery calcification. MEDIASTINUM/HILUM No significant lymphadenopathy. CHEST WALL Right chest port tip terminating at the cavoatrial junction. BONES No focal osseous abnormality or acute fracture. Degenerative changes of the spine and both glenohumeral joints. UPPER ABDOMEN Stable hypodense liver lesions measuring up to 1.[address]/CTA Chest W/WO Contrast IMPRESSION: 1. Limited evaluation of the mid and lower lung subsegmental pulmonary arterie s (due to respiratory motion). No evidence of PE in the remaining pulmonary arteries. 2. Mild bilateral bronchial wall thickening, suggesting infectious or inflamma tory small airways disease. 3. Coronary artery calcification is present. Reading Location: [id number]
[2025-09-26 20:03] LABS: Troponin T High Sens 2 HR 33 ng/L (<=22)
[2025-09-26] MEDS: Azithromycin 500 MG in 0.9% Normal Saline (250mL Bag) 250 ML 250 MG IV (20:25)
--- NOTE | 2025-09-26 21:13 | PCM.HP.STD ---
HPI - General General Date of Admission: 09/26/25 HPI Narrative DEEPTHI CHUNG, is a 74 M who presents to the hospital with shortness of breath and mild hematuria. He has recently completed treatment 2 weeks ago with chemotherapy for bladder cancer and then last Tuesday was his last round of radiation for his bladder cancer since that time he has had some blood-tinged urine. Hemoglobin is stable here in the emergency room. He came in mostly for shortness of breath and was found to be hypoxic into the 80s. He does not smoke however he thinks that he had allergies to his cat because he had some shortness of breath that resolved after the cat 2 years ago however he did have audible wheezing initially on presentation that improved with aerosols. UA is fairly significant for UTI though it is unclear the role that the chemoradiation would play in the UA at this time however he was given a dose of Rocephin with a urine culture pending. He is afebrile without a leukocytosis. [facility] Medical History Encounter for chemotherapy management Encounter for education Tinnitus Hearing loss Anxiety Bladder cancer Wears partial dentures Non-smoker Home Medications ?Medication ?Instructions ?Recorded ?Last Taken ?Type citalopram 20 mg tablet 30 mg PO DAILY 11/25/20 09/26/25 History mecobalamin (vitamin B12) 1,000 1,000 mcg PO QDAY 07/29/25 09/26/25 History mcg lozenges cholecalciferol (vitamin D3) 25 25 mcg PO DAILY 08/22/25 09/26/25 History mcg (1,000 unit) tablet (Vitamin D3) lorazepam 1 mg tablet 1 mg PO Q12H PRN anxiety 09/26/25 09/26/25 History Allergy/AdvReac Type Severity Reaction Status Date / Time No Known Allergies Allergy Verified 09/26/25 16:29 Family History Brother Cancer skin Aunt Cancer Uncle Cancer Surgical History History of colonoscopy Hx of cystoscopy H/O Spinal surgery Hx of tonsillectomy Social History Smoking Status: Never smoker alcohol intake: never substance use type: does not use ROS Constitutional Constitutional: Denies chills, fatigue, fever(s) or malaise Eyes Eyes: Denies blurry vision ENT HEENT: Denies headache(s) or nasal discharge Cardiovascular Cardiovascular: Denies chest pain, dyspnea on exertion or syncope Respiratory/Chest Respiratory/Chest: Reports shortness of breath at rest and shortness of breath with exertion; Denies cough Gastrointestinal Gastrointestinal: Denies constipation, diarrhea, nausea or vomiting Genitourinary Genitourinary: Reports dysuria Neurologic Neurologic: Denies focal weakness, numbness or tremor(s) Psychiatric Psychiatric: Denies anxiety or depression Patient's Goals Of Care . Unable to discuss care goals with the patient and or patient product support sales representative at this time: Yes Vital Signs Vital Signs Vital Signs: 09/26/25 16:27 09/26/25 16:30 09/26/25 16:30 Temperature 98.4 F 98.4 F Temperature Source Oral Oral Pulse Rate 114 H 114 H Respiratory Rate 30 H 30 H Respiratory Effort Respiratory Depth Respiratory Pattern Blood Pressure 145/82 H 145/82 H Blood Pressure Mean 103 103 Pulse Ox 87 93 93 Oxygen Delivery Method Room Air Nasal Cannula Nasal Cannula Oxygen Flow Rate (L/min) 4 4 09/26/25 16:57 09/26/25 17:13 09/26/25 17:19 Temperature Temperature Source Pulse Rate 110 H Respiratory Rate 27 H Respiratory Effort Short of Breath Labored Accessory Muscle Use Respiratory Depth Deep Respiratory Pattern Tachypnea Tachypnea Blood Pressure Blood Pressure Mean Pulse Ox Oxygen Delivery Method Room Air Nasal Cannula Oxygen Flow Rate (L/min) 4 09/26/25 17:30 09/26/25 18:09 09/26/25 19:00 Temperature 98.4 F 98.1 F 98 F Temperature Source Oral Temporal Oral Pulse Rate 104 H 96 90 Respiratory Rate 25 H 24 H 22 H Respiratory Effort Respiratory Depth Respiratory Pattern Blood Pressure 139/85 H 146/89 H 184/96 H Blood Pressure Mean 103 108 125 Pulse Ox 91 92 95 Oxygen Delivery Method Nasal Cannula Room Air Nasal Cannula Oxygen Flow Rate (L/min) 4 4 09/26/25 20:00 09/26/25 20:20 Temperature 98.2 F 98.2 F Temperature Source Oral Pulse Rate 85 83 Respiratory Rate 20 H 18 Respiratory Effort Respiratory Depth Respiratory Pattern Blood Pressure 131/89 H 131/89 H Blood Pressure Mean 103 103 Pulse Ox 95 96 Oxygen Delivery Method Room Air Oxygen Flow Rate (L/min) Weight Weight: 257 lb 15.053 oz Body Mass Index (BMI) 34.9 Physical Exam Narrative General: Alert, Oriented x3, Cooperative, No apparent distress HEENT: Atraumatic, PERRLA, EOMI, Normocephalic Oral: Moist Mucosa Neck: Supple, No JVD Lungs: Diminished, Normal air movement, No rhonchi, scattered wheeze, No rales Cardiovascular: Regular rate, Regular Rhythm, Normal S1, Normal S2, No murmurs Abdomen: Soft, Non Tender, Non-Distended, No Hepato-splenomegaly Extremities: No edema, Capillary Refill Less than 3 Seconds Skin: No rashes, No breakdown Musculoskeletal: No Tenderness to Palpation of Joints or Extremities Neurological: No focal neurological deficits, moves all extremities Psych/Mental Status: Normal Affect, Appropriate Results Lab / Micro Data 09/26/25 17:10 09/26/25 17:10 Labs: Laboratory Results - last 24 hr 09/26/25 17:10: WBC 3.2 L, RBC 3.84 L, Hgb 11.9 L, Hct 36.1 L, MCV 94.0, MCH 31.0, MCHC 33.0, RDW Std Deviation 48.3 H, RDW Coeff of Jono 14.7 H, Plt Count 126 L, MPV 8.4, Immature Gran % (Auto) 0.000, Neut % (Auto) 87.9 H, Lymph % (Auto) 5.3 L, [place] % (Auto) 5.9, Eos % (Auto) 0.6, Baso % (Auto) 0.3, Absolute Neuts (auto) 2.8, Absolute Lymphs (auto) 0.17 L, Nucleated RBC % 0, PT 14.5, INR 1.1, APTT 22.2 L, Sodium 136, Potassium 3.8, Chloride 100, Carbon Dioxide 23.6, Anion Gap 12, BUN 15, Creatinine 1.08, Estim Creat Clear Calc 79.24, Est GFR (MDRD) Non-Af 72, BUN/Creatinine Ratio 13.4, Glucose 140 H, Lactic Acid 1.4, Calcium 9.1, Total Bilirubin 0.95, AST 18, ALT 12, Alkaline Phosphatase 73, Troponin T High Sens 23 H, NT pro BNP II 375, Total Protein 6.7, Albumin 4.1, Globulin 2.6, Albumin/Globulin Ratio 1.6 09/26/25 18:10: Urine Color Elaine, Urine Clarity Cloudy, Urine pH 5.0, Ur Specific [place] 1.025, Urine Protein 500 H, Urine Glucose (UA) 50 H, Urine Ketones 5 H, Urine Occult Blood 250 H, Urine Nitrite Positive H, Urine Bilirubin 1 H, Urine Urobilinogen Normal, Ur Leukocyte Esterase 100 H, Urine RBC > 100 SEEN, Urine WBC >100 SEEN, Ur Squamous Epith Cells 0 SEEN, Urine Bacteria 1+, Urine Mucus 2+ 09/26/25 19:23: Troponin T Hi Sens 2 Hr 33 H Micro: Microbiology 09/26/25 17:25 Mucosa - Nose SARS-CoV-2, Influenza & RSV (PCR) - Final Imaging Radiology Impression Chest X-Ray 09/26/25 16:58 IMPRESSION: No evidence of acute pulmonary disease. Reading Location: [facility] Chest CTA 09/26/25 19:08 IMPRESSION: 1. Limited evaluation of the mid and lower lung subsegmental pulmonary arteries (due to respiratory motion). No evidence of PE in the remaining pulmonary arteries. 2. Mild bilateral bronchial wall thickening, suggesting infectious or inflammatory small airways disease. 3. Coronary artery calcification is present. Reading Location: [facility] Assessment & Plan Assessment/Plan (1) UTI (urinary tract infection): (2) Acute bronchitis: (3) Hypoxia: PLAN: Plan 1. Acute hypoxic respiratory insufficiency secondary to bronchitis versus asthma exacerbation ? Continue with prednisone ? Continue with azithromycin ? Continue with breathing treatments ? CTA of the chest was negative for PE ? Chest x-ray was unremarkable ? Viral studies were normal 2. UTI with hematuria in the setting of recent chemoradiation for bladder cancer ? Urine cultures are pending ? Continue with Rocephin 3. Anxiety/depression ? Stable ? Continue escitalopram DVT: SCDs 75 minutes was spent on direct patient care, including documentation as well as chart review and collaboration with colleagues Charges/Coding Visit Charges Inpatient E&M: 43206 Init Hosp L3
--- OUTSIDE RECORDS SUMMARY | 2025-09-26 22:05 | XMS RPT_ITS | CCD ---
Author Organization [facility] CliniSytx Care Team Providers Care It Assistant Name Role Phone Linda NUNEZ, Libra Primary Care Provider Valentin NUNEZ, Dr. Landaverde Attending Provider Linda NUNEZ, Libra Primary Care Physician Valentin NUNEZ, Dr. Landaverde Attending Physician King NUNEZ, Dr. Partha Rivero Attending Physician King NUNEZ, Dr. Partha Rivero Referring Provider Linda NUNEZ, Libra Attending Physician King NUNEZ, Dr. Partha Rivero Admitting Physician Linda, Chalon Primary Care Unavailable KingPartha Referring Unavailable KingPartha Attending Unavailable Linda, Libra Attending Unavailable Linda, Chalon Primary Care Unavailable Linda, Chalon Primary Care Unavailable Akhil Hanson Attending Unavailable Yahir PARACHUTE PACKER, Melissa Attending Unavailable Linda, Chalon Primary Care Unavailable Linda, Chalon Referring Unavailable KayodeRod lion Referring Unavailable Rod Headley Attending Unavailable Linda, Chalon Primary Care Unavailable King, Partha Rivero Referring Unavailable King, Partha Rivero Attending Unavailable KingPartha Admitting Unavailable Linda, Chalon Primary Care Unavailable Wanek, Michael A Referring Unavailable Wanek, Michael A Attending Unavailable Linda, Chalon Primary Care Unavailable Kayode Rod Referring Unavailable KayodeRod Attending Unavailable Linda, Chalon Primary Care Unavailable Wanek, Michael A Attending Unavailable Linda, Chalon Primary Care Unavailable Linda, Chalon Referring Unavailable Linda, Chalon Primary Care Unavailable Berenice Murphy Attending Unavailable Rod Headley Attending Unavailable Linda, Chalon Primary Care Unavailable King, Partha Rivero Referring Unavailable Kayode, Rod Attending Unavailable Libra Mckeon Primary Care Unavailable Libra Mckeon Primary Care Unavailable Kris Jaramillo Attending Unavailable Libra Mckeon Referring Unavailable Michael Nazario Referring Unavailable Michael Nazario Attending Unavailable Michael Nazario Consulting Unavailable Linda, Chalon Primary Care Unavailable Linda, Chalon Primary Care Unavailable Kris Jaramillo Referring Unavailable Kris Jaramillo Attending Unavailable Medications Current Medications Medication Drug Class(es) Dates Sig (Normalized) Sig (Original) cephalexin 500 mg oral capsule (1 source) Cephalosporin Antibacterial Start: 07-13-2025 take 1 capsule by mouth three times daily citalopram 20 mg oral tablet (6 sources) Serotonin Reuptake Inhibitor Start: 11-25-2020 Citalopram 20 MG tablet Active 30 mg PO DAILY November 25, 2020 1:00am Complies with drug therapy Start: 11-25-2020 take 30 mg by mouth once daily Citalopram Active 30 MG PO DAILY November 25, 2020 6:38pm docusate sodium 100 mg oral capsule (1 source) Start: 07-13-2025 take 1 capsule by mo uth twice daily Problems Problem Classification Problem Date Documented Da te Episodic/Chronic Administrative/social admission (1 source) Counseling, unspecified; Translations: [Counseling, unspecified] Onset: 08-08-2025 Episodic Cancer of bladder (4 sources) 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; Translations: [Malignant neoplasm of bladder, unspecified] Onset: 08-12-2025 Chronic Genitourinary symptoms and ill-defined conditions (2 sources) Gross hematuria; Translations: [Hematuria, unspecified] Onset: 05-30-2025 Episodic Other diseases of bladder and urethra (1 source) Bladder disorder, unspecified; Translations: [Bladder disorder, unspecified] Onset: 07-26-2025 Chronic Other screening for suspected conditions (not mental disorders or infectious disease) (1 source) Encounter for screening for malignant neoplasm of prostate; Translations: [Encounter for screening for malignant neoplasm of prostate] Onset: 07-08-2025 Episodic Results Test Name Value Interpretation Reference Range Facility CXR for Line Placementon CXR for Line Placement [facility] Imaging Services [facility] [address] CXR for Line Placement MR#: [id number] Acct: [id number] Name: MAXIME LOPEZ Rep #: [id number] : 1950 M 74 From: Mike valiente MD PCP: Dr. Libra Mckeon MD Status: [facility] Study: CXR for Line Placement Date of Exam: 08/22/25 Exam# [id number] Ordering Dr: Michael Nazario MD PROCEDURE: CXR FOR LINE PLACEMENT 08/22/2025 REASON FOR EXAM: Port placement. TECHNIQUE: Procedure Code: RADCXRLP Modality: DX Procedure: CXR FOR LINE PLACEMENT COMPARISON: None FINDINGS: A right-sided port a catheter has been placed. The tip is at the junction of the superior vena cava and right atrium. EKG electrodes are seen. Hyperinflation. Increased linear markings at the left lung base suggestive of linear atelectasis and/or linear scarring. RAD/CXR for Line Placement IMPRESSION: The tip of the right port a catheter is at the junction of the superior vena cava and right atrium. Reading Location: [facility]- CC: Dr. Libra Mckeon MD; Dr. Michael Nazario MD Pipe Stem Sawyer: Signed [facility] Discharge Instructionon 08-10 Discharge Instruction [facility] Medical Records Department [address] [place] [address] Instructions for Home/Discharge Instructions 08/22/25 1045 MR#: [id number] Acct: [id number] Name: MAXIME LPOEZ Rep #: [id number] : 1950 74 From: Michael Nazario MD PCP: Dr. Libra Mckeon MD Status:[facility] Discharge Instructions Diet Discharge Diet: Light diet - advance as tolerated Activity Return to work on:: 08/22/25February shower in (days): 1 Ice area for (Minutes): 30 Dressing / Incision Call your doctor if your incision/area has: Continuous Slow Oozing, Sudden Increased Bleeding, Increased Pain/ Swelling, Increased Redness, Foul Smelling Discharge and Swelling at the incision site Call your doctor if you observe: Fever of 101 or Higher Remove Dressing in: 3 days Cleanse incision/area with: Soap Water Follow Up Care Please Follow Up With: Michael Nazario MD When: as needed Test Results: Test results from this visit will be discussed in further detail at your follow-up appointment, if applicable. Discharge Plan Admission Primary Reason for Your Visit: Port placement Attending Provider: Michael Nazario Primary Care Provider: Libra Mckeon Instructions Print Language: Arabic Discharge Orders/Prescriptions Prescriptions: New oxycodone 5 mg tablet 5 mg PO Q8H PRN (Reason: pain) 3 Days Qty: 7 0RF Continued mecobalamin (vitamin B12) 1,000 mcg lozenge 1,000 mcg PO QDAY Rx Instructions: allow to dissolve in mouth OR may chew lightly before swallowing citalopram 20 MG tablet 30 mg PO DAILY cholecalciferol (vitamin D3) [Vitamin D3] 25 mcg (1,000 unit) tablet 25 mcg PO DAILY Referrals / Follow Up: Libra Mckeon MD [Primary Care Provider, Family Practice] Disposition Disposition (needs filled in before D/C Order can be placed): Home, Self Care 08/22/25 1406 Michael Nazario MD CC: Dr. Libra Mckeon MD Signed [facility] MR/[facility]OP.[facility] Medical Records Department [address] [place] [address] Anesthesia Postop Eval I 08/22/25 1232 MR#: [id number] Acct: [id number] Name: MAXIME LOPEZ Rep #: [id number] : 1950 74 From: Ayaka Walton CRNA PCP: Dr. Libra Mckeon MD Status:REG SDC Y Race: C Location: [place] [address] Anesthesia: Postop Eval I Current Vital Signs Temperature: 97.2 F Pulse Rate: 74 Blood Pressure: 135/91 Respiratory Rate: 18 Pulse Ox: 95 Oxygen Delivery Method: Room Air Assessment Airway patent: Yes Spontaneous unlabored respirations: Yes Mental status: Awake and Calm nausea: No Vomiting: No Anesthesia Complication: No Fluid Hydration Crystalloid volume administer (ml): 500 Total IV fluid infused: 500 Progress Note Anesthesia document: Postop Eval 1 completed: Yes 08/22/25 1232 Date Ayaka Walton WAREHOUSE INVENTORY CLERK Kwesiignnanette Signature: Date CC: Signed [facility] MR/[id number] 08-22-2025 [facility] Medical Records Department [address] [facility] [place] [address] Anesthesia Postop Eval II 08/22/25 1430 MR#: [id number] Acct: [id number] Name: MAXIME LOPEZ Rep #: [id number] : 1950 74 From: Leigh Kenny WAREHOUSE INVENTORY CLERK PCP: Dr. Libra Mckeon MD Status:[facility] Y Race: C Location: [facility] Anesthesia Postop Eval I Sum Postop Eval Completion status Anesthesia document: Postop Eval 1 completed: Yes Anesthesia Postop Eval I Summary Anesthesia Postop Eval I Summary: Anesthesia Postop Eval I: Assessment Summary Airway patent Yes 08/22/25 12:32 WAREHOUSE INVENTORY CLERK.ROSEANNEOBY Spontaneous unlabored Yes 08/22/25 12:32 WAREHOUSE INVENTORY CLERK.WING respirations Mental status Awake,Calm 08/22/25 12:32 WAREHOUSE INVENTORY CLERK.ROSEANNEOBY nausea No 08/22/25 12:32 WAREHOUSE INVENTORY CLERK.SKOBY Vomiting No 08/22/25 12:32 WAREHOUSE INVENTORY CLERK.SKOBY Anesthesia Postop Eval I: Fluid Summary Crystalloid volume administer 500 08/22/25 12:32 WAREHOUSE INVENTORY CLERK.ROSEANNEOBY (ml) Colloids volume administered ( ml) Blood Product volume administered (ml) Total IV fluid infused 500 08/22/25 12:32 WAREHOUSE INVENTORY CLERK.ROSEANNEOBAna Anesthesia Postop Eval I: Summary Notes Anesthesia Complication No 08/22/25 12:32 WAREHOUSE INVENTORY CLERK.ROSEANNEOBY Anesthesia Complication Comment: Post-operative progress note Anesthesia: Postop Eval II Evaluation Mental status: Awake and Calm Pain Level: 0 nausea: No Vomiting: No Complications Anesthesia Complication: No 08/22/25 1430 Date Leigh Kenny CRNA Cosigner Signature: Date CC: Signed [facility] Operative Reporton 5 Operative Report [facility] Medical Records Department [address] [place] [address] Operative Report 08/22/25 1218 MR#: [id number] Acct: [id number] Name: MAXIME LOPEZ Rep #: [id number] : 1950 74 From: Michael Nazario MD PCP: Dr. Libra Mckeon MD Status:[facility] Location: [place] [address] Operative Report (Standard) Operative Information Date of Procedure: 08/22/25 Pre-Operative Diagnosis: Bladder cancer Post-Operative Diagnosis: Same Surgery/Procedure Performed: Right IJ Mediport placement with C arm car dumper operator: No Type of Anesthesia: Local and MAC RN Documented Start/Stop Times: Operation Date: 08/22/25 11:00 Case Time Into Pre-Op 08/22/25 09:33 Out of Pre-Op 08/22/25 10:55 Anesthesia Start 08/22/25 11:02 Into Room 08/22/25 11:02 Procedure Start 08/22/25 11:23 Procedure End 08/22/25 12:06 Anesthesia End 08/22/25 12:12 Out of Room 08/22/25 12:12 Into Recovery 08/22/25 12:13 Procedure Start Time: 11:23 Procedure Stop Time: 12:06 Select all DRAINS/GRAFTS/IMPLAN TS that apply: Implanted device (PowerPort MRI compatible implanted port) Implanted device details: PowerPort MRI compatible implanted port Estimated Blood Loss: 10 mL Specimen collected: No Description of surgery: The patient is a 74-year-old male who was recently diagnosed with bladder cancer. His oncology team is recommending chemotherapy. A Mediport was recommended. Patient presents today for placement of the Mediport. He was brought to the operating room today following informed consent. Preoperative antibiotics were given and a timeout was performed. He is placed supine on the operative table with arms outstretched and arm boards general anesthesia was induced. Chest and neck region was prepped and draped in the usual manner on the right. Ultrasound was used to identify the right internal jugular vein. Local anesthetic was infiltrated and then the vein was able to be cannulated on the first pass. Guidewire was threaded through the aperture of the needle. This was then secured to the drapes using a curved hemostat. C-arm was then brought into confirm appropriate placement of the wire. Region in the right upper chest was then selected for placement of the port hub. Every effort was made to make this is superior as possible. Skin incision was made after injecting local anesthetic. #15 blade was used to make this incision. Bovie electrocautery was then used to dissect down through subcutaneous tissue. A subcutaneous pocket was created. This was fashioned so that the port was fairly superficial and should be easily identifiable when used. The 15 blade was then used to make a small skin incision at the entry point of the wire. A curved hemostat was then used to create a small subcutaneous pocket in this area as well to facilitate the curvature of the tubing. The tubing was then tunneled from the larger incision on the chest up and out through the smaller incision in the neck. Tubing was then trimmed to about 27 cm. It was then attached to the hub and the hub was then affixed to the chest subcutaneous tissues using Prolene suture x 2. The dilator and tear-away sheath were then threaded over the guidewire and advanced to the hub. The dilator and wire were then removed thus leaving the sheath in place. The tubing was then threaded down the sheath. This appeared to be in good position. The sheath was then extracted while the tubing was advanced. Once the sheath was extracted, the port was tested.. It dennis and flushed easily with injectable saline. Every effort was made to make sure that there was no acute kinks or bends in the tubing especially at the neck. The port was then dennis and flushed with heparin solution. The incisions were then closed using 3-0 Vicryl and 4-0 Vicryl. Steri-Strips were applied as dressing along with OpSite's. He was awakened from anesthesia and taken recovery in good condition Surgical Findings: See procedure note Complications Complications: No Admit VTE Documentation VTE Present on Admission: Yes VTE Mechan Device Prophylaxis: SCD's VTE Pharm Prophylaxis ordered?: No Reason prophylaxis not ordered: Treatment Not Indicated 08/22/25 1241 Cosigner Signature (if applicable): CC: Dr. Libra Mckeon MD; Dr. Michael Nazario MD Signed ADDENDUM by Dr. Michael Nazario MD on 08/22/25 at 1358 Procedures Cardiovascular CF Procedures 33xxx-39xxx: [id number] Insert tunneled cv cath 08/22/25 1358 Cosigner Signature (if applicable): cc: Dr. Libra Mckeon MD; Dr. Michael Nazario MD * Signed [facility] Bone Scan Whole Bodyon 08-20 Bone Scan Whole Body [facility] Imaging Services [address] [place] [address] [id number] Bone Scan Whole Body MR#: [id number] Acct: [id number] Name: MAXIME LOPEZ Rep #: [id number] : 1950 M 74 From: Mike valiente MD PCP: Dr. Libra Mckeon MD Status: REG CLI Study: Bone Scan Whole Body Date of Exam: 08/20/25 Exam# [id number] Ordering Dr: Kris Jaramillo MD PROCEDURE: BONE SCAN WHOLE BODY 08/20/2025 REASON FOR EXAM: STAGING U.B. CANCER TECHNIQUE: Procedure Code: NMBO Modality: NM Procedure: BONE SCAN WHOLE BODY Whole-body bone scan with anterior and posterior views. Imaging at 3.5 hours. RADIOPHARMACEUTICAL: 26.9 mCi Technetium-99m MDP IV COMPARISON: CT scan dated June 27, 2025. FINDINGS: Bones: Mild uptake seen throughout the thoracic spine suggestive of degenerative changes. Mild increased markings in the posterior right cervical spine suggestive of degenerative changes as well as medial compartment of the right knee joint. The bladder is contracted. Kidneys: Unremarkable. NM/Bone Scan Whole Body IMPRESSION: No evidence of bony metastasis. Reading Location: [place] [address] CC: Dr. Libra Mckeon MD; Dr. Kris Jaramillo MD Pipe Stem Sawyer: Signed [facility] Surgery Visit Reporton 08-14 Surgery Visit Report [facility] [address] [place] [address] OFFICE VISIT Date of Service: 08/14/25 MR#: [id number] Acct: [id number] Name: MAXIME LOPEZ Rep #: [id number] : 1950 Provider: Dr. Michael freire MD Age/Sex: 74/M Location: [facility] Status: Signed Intake Vital Signs 08/07/25 10:38 08/08/25 10:17 08/14/25 13:56 Height 6 ft 6 ft 6 ft Weight: 261 lb 259 lb 6 oz BMI 35.4 35.2 BP 126/81 H 128/75 H Blood Pressure Location Lt brachial Lt brachial Position Sitting Sitting Respiration 18 17 Pulse 75 85 Pulse Source NIBP Monitor Temp 98.0 F 97.9 F Temp Source Temporal Pulse Oximetry (%) 93 96 Oxygen Delivery Method room air room air Intake Visit Reasons: PORT PLACEMENT Chief Complaint: port placement Is patient in pain?: No Allergies No Known Allergies Allergy (Verified 08/14/25 13:57) Medications ???Medication ???Instructions ???Recorded ???Confirmed ???Type citalopram 20 mg tablet 30 mg PO DAILY 11/25/20 08/14/25 H istory mecobalamin (vitamin B12) 1,000 1,000 mcg PO QDAY 07/29/25 5 History mcg lozenges Have you fallen in the past year?: No PFSH Medical History Encounter for education Tinnitus Hearing loss Anxiety Bladder cancer Wears partial dentures Non-smoker Surgical History Hx of cystoscopy H/O Spinal surgery Hx of tonsillectomy Family History Brother Cancer skin Aunt Cancer Uncle Cancer Social History Smoking Status: Never smoker alcohol intake: never substance use type: does not use HPI HPI HPI: The patient is a 74-year-old male with a history of bladder cancer. Patient has been referred today to discuss placement of a Mediport for chemotherapy administration. ROS General General: No weight change, appetite, fatigue, colon cancer, breast cancer or weakness HEENT HEENT: No difficulty swallowing, eye injury, eye surgery, swollen glands or hoarseness Endo Endocrine: No thyroid disease, diabetes mellitus, thyroid cancer, Hair loss, heat intolerance or cold intolerance Skin Skin: No rash or changing moles Musc Musculoskeletal: No back problems, arthritis, rheumatoid arthritis, gout or joint pain Cardio Cardiovascular: No murmur, pacemaker, heart disease, atrial fibrillation, high blood pressure, heart attack, heart stent, palpitations, shortness of breath with exertion or chest pain Psych Psychiatric: Yes anxiety; No depression or hearing voices Resp Respiratory: No shortness of breath, No sleep apnea, No cough, No COPD, No asthma, No emphysema and No wheezing Gastro Gastrointestinal: No abdominal pain, No nausea or vomiting, No diarrhea, No constipation, No blood in stool, No acid reflux, No hemorrhoids, No ulcers, No gallbladder problem and No black,tarry stools Mulugeta Hematologic: No blood thinners, No blood disorders, No bleeding, No anemia and No blood clots Neuro Neurologic: No numbness, No tingling and No weakness Exam Const General: cooperative, comfortable and no acute distress HENMT Head: normal to inspection Eyes General: appearance normal, both eyes and all related structures Neck Neck: normal visual inspection Resp Effort Inspection: normal respiratory effort and able to speak in complete sentences Assessment and Plan Assessment and Plan (1) Bladder cancer: Status: Acute Qualifiers: Bladder location: anterior wall Qualified Code(s): C67.3 - 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 Plan: The patient is a 74-year-old male with bladder cancer who is in need of a Mediport placement. We discussed the details of the planned procedure and he wishes to proceed. Patient is left-handed so we will place this on the right side. This will be scheduled in a timely manner. We did discuss the risks benefits and alternatives. Coding Level of Care Code Off vis,new,level 4 Diagnoses Malignant neoplasm of anterior wall of urinary bladder C67.3 Bladder location: anterior wall Clinical Quality Measures Falls Risk Screening/Assistive Devices Have you fallen in the past year?: No 08/14/25 1504 Date Michael Nazario MD Cosign Signature: Date (if applicable) CC: Dr. Libra Mckeon MD [facility] Oncology Visit Reporton 07-12 Oncology Visit Report [facility] [address] [place] [address]. [place] [address] OFFICE VISIT Date of Service: 08/08/25 1017 MR#: [id number] Acct: [id number] Name: MAXIME LOPEZ Rep #: [id number] : 1950 From: Melissa Sinclair NP PARACHUTE PACKER -C Age/Sex: 74/M Location: [facility] Status: Signed HPI Subjective Date of Service 08/08/25 Chief Complaint Education visit- cisplatin History of Present Illness 74-year-old gentleman, never smoker who presented in March 2025 with gross hematuria. June 27, 2025 CT abdomen and pelvis: IMPRESSION: Perinephric fat stranding. No hydronephrosis. A 3 mm nonobstructing stone at the midpole of the left kidney. No kidney masses. Bladder wall thickening and surrounding fat stranding consistent with acute cystitis. July 12, 2025 cystoscopy with trans urethral resection of bladder tumor: cystoscopy was then done and demonstrated what appeared to be a tumor in the dome of the bladder up by the bladder neck anterior so he was taken back to the operating room after smooth induction of anesthesia he was placed in dorsolithotomy position went in the bladder with a resectoscope the tumor tumor was coming down from the anterior part of the bladder looked very hard it also looked invasive started resecting resected deep into the muscle and appeared to get the entire tumor out but this appeared to be an invasive tumor very hard looking tumor very concerning for invasion into the muscle for my perspective after resecting this tumor then he had a lot of of what appeared to be 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 - Lamina propria involved. - Muscularis propria present and involved. 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 August 02, 2025 CT chest: Coronary artery calcification (CAC) is present No acute chest abnormalities. Interval History The patient is presenting to clinic for an education visit to discuss chemotherapy with cisplatin. c/o fatigue, mild to moderate. Reports intermittent hematuria, last episode earlier this morning. [facility] Medical History Encounter for education Tinnitus Hearing loss Anxiety Bladder cancer Wears partial dentures Non-smoker Surgical History Hx of cystoscopy H/O Spinal surgery Hx of tonsillectomy Family History Brother Cancer skin Aunt Cancer Uncle Cancer Social History Smoking Status: Never smoker alcohol intake: never substance use type: does not use ROS ROS Narrative Negative except as documented in the interval HPI Intake Vital Signs 08/07/25 10:38 08/08/25 10:17 Height 6 ft 6 ft Weight: 259 lb 261 lb BMI 35.1 35.4 BP 120/79 126/81 H Blood Pressure Location Lt brachial Lt brachial Position Sitting Sitting Respiration 16 18 Pulse 90 75 Pulse Source Monitor NIBP Temp 98.2 F 98.0 F Temperature Source Temporal Artery Temporal Artery Pulse Oximetry (%) 93 93 Oxygen Delivery Method room air room air Intake Sales Secretary Required: No Accompanied by: Self Is patient in pain?: No Allergies No Known Allergies Allergy (Verified 08/08/25 10:21) Medications ???Medication ???Instructions ???Recorded ???Confirmed ???Type citalopram 20 mg tablet 30 mg PO DAILY 11/25/20 08/08/25 H istory mecobalamin (vitamin B12) 1,000 1,000 mcg PO QDAY 07/29/25 5 History mcg lozenges Have you fallen in the past year?: No Central Venous Access Central Venous Access: No Exam Physical Exam Narrative ECOG 0 Const alert, oriented x3 and no apparent distress HEENT Face and Sinus: normal facial exam Eyes General Eye: normal appearance of both eyes Psych mental status grossly normal Attitude: calm and engaged Coding Level of Care Code Off vis,est,level 5 Exam Problem Focused Diagnoses Malignant neoplasm of anterior wall of urinary bladder C67.3 Bladder location: anterior wall Encounter for education Z71.9 Assessment and Plan Assessment and Plan (1) Bladder cancer: Status: Acute Qualifiers: Bladder location: anterior wall Qualified Code(s): C67.3 - Malignant neoplasm of anterior (more content not included)... Normal [facility] Oncology Visit Reporton 07-11 Oncology Visit Report [facility] [address] [facility] [place] [address] OFFICE VISIT Date of Service: 08/07/25 [facility] MR#: [id number] Acct: [id number] Name: MAXIME LOPEZ Rep #: [id number] : 1950 From: Kris Jaramillo MD Age/Sex: 74/M Location: [facility] Status: Signed HPI Subjective Date of Service 08/07/25 Chief Complaint Hematuria, bladder cancer History of Present Illness 74-year-old gentleman, never smoker who presented in March 2025 with gross hematuria. June 27, 2025 CT abdomen and pelvis: IMPRESSION: Perinephric fat stranding. No hydronephrosis. A 3 mm nonobstructing stone at the midpole of the left kidney. No kidney masses. Bladder wall thickening and surrounding fat stranding consistent with acute cystitis. July 12, 2025 cystoscopy with trans urethral resection of bladder tumor: cystoscopy was then done and demonstrated what appeared to be a tumor in the dome of the bladder up by the bladder neck anterior so he was taken back to the operating room after smooth induction of anesthesia he was placed in dorsolithotomy position went in the bladder with a resectoscope the tumor tumor was coming down from the anterior part of the bladder looked very hard it also looked invasive started resecting resected deep into the muscle and appeared to get the entire tumor out but this appeared to be an invasive tumor very hard looking tumor very concerning for invasion into the muscle for my perspective after resecting this tumor then he had a lot of of what appeared to be 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 - Lamina propria involved. - Muscularis propria present and involved. 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 August 02, 2025 CT chest: Coronary artery calcification (CAC) is present No acute chest abnormalities. PFSH Medical History Tinnitus Hearing loss Anxiety Bladder cancer Wears partial dentures Non-smoker Surgical History Hx of cystoscopy H/O Spinal surgery Hx of tonsillectomy Family History Brother Cancer skin Aunt Cancer Uncle Cancer Social History Smoking Status: Never smoker alcohol intake: never substance use type: does not use ROS Constitutional Constitutional: Reports systems reviewed and no addt'l complaints, except as documented; Denies fatigue, fever(s) or weight loss Eyes Eyes: Reports systems reviewed and no addt'l complaints, except as documented ENT HEENT: Reports systems reviewed and no addt'l complaints, except as documented, hearing loss and tinnitus; Denies mouth lesions Cardiovascular Cardiovascular: Reports systems reviewed and no addt'l complaints, except as documented; Denies chest pain with activity or edema Respiratory/Chest Respiratory/Chest: Reports systems reviewed and no addt'l complaints, except as documented; Denies cough or dyspnea on exertion Gastrointestinal Gastrointestinal: Reports systems reviewed and no addt'l complaints, except as documented; Denies change in bowel habits, hematochezia or melena Genitourinary Genitourinary: Reports systems reviewed and no addt'l complaints, except as documented, hematuria and other Details: Gross hematuria at presentation, down to some blood-tinged urine following TURB Musculoskeletal Musculoskeletal: Reports systems reviewed and no addt'l complaints, except as documented; Denies arthralgias or back pain Integumentary Integumentary: Reports systems reviewed and no addt'l complaints, except as documented; Denies new lesions Neurologic Neurologic: Reports systems reviewed and no addt'l complaints, except as documented; Denies focal weakness or paresthesias Psychiatric Psychiatric: Reports systems reviewed and no addt'l complaints, except as documented Endocrine Endocrinology: Reports systems reviewed and no addt'l complaints, except as documented Hematologic/Lymphati c Hematologic/Lymphati c: Reports systems reviewed and no addt'l complaints, except as documented; Denies lymphadenopathy Allergic/Immunologic Allergic/Immunologic : Reports systems reviewed and no addt'l complaints, except as documented Intake Vital Signs 08/01/25 14 (more content not included)... Normal [facility] Chest WITH Contraston 2024 Chest WITH Contrast [facility] Imaging Services [address] [place] [address] Chest WITH Contrast MR#: [id number] Acct: [id number] Name: MAXIME LOPEZ Rep #: [id number] : 1950 M 74 From: Bonnie Gallardo MD PCP: Dr. Libra Mckeon MD Status: REG CLI Study: Chest WITH Contrast Date of Exam: 08/02/25 Exam# [id number] Ordering Dr: Rod Headley DO PROCEDURE: CHEST WITH CONTRAST 08/02/2025 REASON FOR EXAM: BLADDER CANCER STAGING TECHNIQUE: Procedure Code: CTCHW Modality: CT Procedure: CHEST WITH CONTRAST Coronal and Sagittal reconstruction series were provided. CONTRAST: Isovue 370 VOLUME: 98 mL One or more dose reduction techniques were used (e.g., Automated exposure control, adjustment of the mA and/or kV according to patient size, use of iterative reconstruction technique). RADIATION DOSE SUMMARY: CTDlvol: 18.41 mGy DLP: 744.47 mGycm COMPARISON: None. FINDINGS: Hardware: None. Lymph nodes: No lymphadenopathy. Heart and Vasculature: No cardiomegaly. Lungs and Airways: Clear. Pleura: No pleural effusion or pneumothorax. Upper Abdomen: Unremarkable. Bones: No acute bony abnormalities. CT/Chest WITH Contrast IMPRESSION: Coronary artery calcification (CAC) is present No acute chest abnormalities. Reading Location: [facility] CC: Dr. Libra Mckeon MD; Dr. Rod Headley DO Pipe Stem Sawyer: Signed Normal [facility] Radiation Oncology Visiton 1 Radiation Oncology Visit [facility] [address] [place] [address] OFFICE VISIT Date of Service: 08/01/25 1355 MR#: [id number] Acct: [id number] Name: MAXIME LOPEZ Rep #: [id number] : 1950 From: Rod Headley DO Age/Sex: 74/M Location[facility] Status: Signed Intake Vital Signs 07/12/25 14:53 08/01/25 14:03 Height 6 ft 0.83 in 6 ft 0.83 in Weight: 258 lb 3 oz BMI 34.2 BP 130/81 H Blood Pressure Location Rt brachial Position Sitting Respiration 16 Pulse 81 Pulse Source Monitor Temp 97.1 F L Temperature Source Temporal Artery Pulse Oximetry (%) 94 Intake Is patient in pain?: No Allergies No Known Allergies Allergy (Verified 08/01/25 14:01) Medications ???Medication ???Instructions ???Recorded ???Confirmed ???Type citalopram 20 mg tablet 30 mg PO DAILY 11/25/20 07/09/25 H istory mecobalamin (vitamin B12) 1,000 1,000 mcg PO QDAY 07/29/25 5 History mcg lozenges Have you fallen in the past year?: No PFSH PFSH Medical History Anxiety Bladder cancer Wears partial dentures Non-smoker Home Medications ???Medication ???Instructions ???Recorded ???Last Taken ???Type citalopram 20 mg tablet 30 mg PO DAILY 11/25/20 Unknown Hi story mecobalamin (vitamin B12) 1,000 1,000 mcg PO QDAY 07/29/25 Unknown History mcg lozenges Allergy/AdvReac Type Severity Reaction Status Date / Time No Known Allergies Allergy Verified 08/01/25 14:01 Surgical History (Updated 07/29/25 @ 09:44 by Berenice Murphy) Hx of cystoscopy H/O Spinal surgery Hx of tonsillectomy Social History (Updated 07/29/25 @ 09:45 by Berenice Murphy) Smoking Status: Never smoker alcohol intake: never substance use type: does not use Referring Provider: Mat Malik MD Diagnosis: Maxime Lopez is a 74 year-old male diagnosed with clinical stage II (cT2 cN0 M0) high-grade invasive urothelial carcinoma status post CT abdomen/pelvis (06/27/2025) and cystoscopy with TURBT (07/12/2025). History of Present Illness: 06/27/2025: Patient completed CT abdomen/pelvis with and without contrast.??? This demonstrated perinephritic stranding, no hydronephrosis, there is a decompressed bladder with bladder wall thickening and surrounding fat stranding consistent with cystitis.??? Multiple simple cysts noted in the liver. 07/12/2025: Patient completed cystoscopy with transurethral resection of bladder tumor.??? Tumor appeared to be coming down from the anterior part of the bladder complete resection of the visible portion of the tumor was completed.??? Pathology was consistent with high-grade invasive urothelial carcinoma, muscularis propria is present and involved. pT2 pNx Radiation Treatment History: No prior history of radiation therapy. No pacemaker. No diagnosis of radiosensitizing comorbidity. Interval History: Patient presents for initial consultation. He reports having hematuria develop in roughly March which led to his workup and diagnosis. He does continue to have some occasional pink-tinged urine but it is not every time, maybe a few times per week. He denies dysuria. He does have several month history of increasing urinary frequency, nocturia greater than 5 times per night, and some small-volume leakage/urgency. He denies weak stream or intermittency. He denies straining. He denies rectal pain or bleeding. He denies diarrhea or constipation. He had a colonoscopy about 4 years ago and is due for another one next year. He denies cough, shortness of breath, chest pain, bone pain. Energy level has remained relatively stable this year. He is a never smoker. He has been retired for about 20 years but does stay relatively active in his daily life. He completes ADLs without any difficulty. He denies having other problems or concerns at this time. Review of Systems: A 12-point review of systems was completed and was negative except for what is noted in the HPI/Interval History and by the nurse. Physical Exam: Weight: 158 lbs 3 oz ECO KARNOFSKY SCORE: 80% CONSTITUTIONAL: Well-developed, well-nourished, and in no apparent distress. CARDIAC: Regular rate and rhythm. Normal S1, S2. No murmurs, rubs, or gallops. PULMONARY/CHEST: Lungs are clear to auscultation and percussion bilaterally. No wheezes, rhonchi, or crackles noted. No increased work of breathing. EXTREMITIES: Full range of motion in all four extremities. No evidence of edema. PSYCHIATRIC: Appropriate mood and affect for the clinical situation. Imaging: As per HPI Laboratory Data: None Assessment Plan Assessment/Plan (1) Bladder cancer: QUALIFIERS: Bladder location: anterior wall Qualified Code(s): C67.3 - 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 PLAN: Assessment: Maxime Lopez is a 74 (more content not included)... Normal [facility] Discharge Instructionon 10-0 Discharge Instruction [facility] Medical Records Department [address] [place] [address] Instructions for Home/Discharge Instructions 07/13/25 1031 MR#: [id number] Acct: [id number] Name: MAXIME LOPEZ Rep #: [id number] : 1950 74 From: Partha Malik MD PCP: Dr. Libra Mckeon MD Status:ADM DEL Discharge Instructions DC O2, CPAP, BIPAP needs Home O2 Discharge instructions: No Dressing / Incision Discharge Activity: Return to Normal Activity and May Not Drive (while taking narcotic pain medications.) Dressing / Incision Call your doctor if you observe: Fever of 101 or Higher Follow Up Care Please Follow Up With: Partha Malik MD When: Call [phone] for an appointment Test Results: Test results from this visit will be discussed in further detail at your follow-up appointment, if applicable. Discharge Plan Admission Admit Date/Time: 07/12/25 11:14 Primary Reason for Your Visit: resection of bladder tumor Attending Provider: Partha Malik Primary Care Provider: Libra Mckeon Discharge Orders/Prescriptions Prescriptions: No Action citalopram 20 MG tablet 30 mg PO DAILY Referrals / Follow Up: Libra Mckeon MD [Primary Care Provider, Family Practice] Partha Malik MD [Med Staff - Active Staff, Urology] 07/13/25 1031 Partha Malik MD CC: Dr. Libra Mckeon MD Signed Normal [facility] Immunohistochemical Stainson 07-12-2025 Immunohistochemical Stains Patient Age/Sex Location Account Attending Physician MAXIME LOPEZ 74/M MS3 [id number] Dr. Partha Malik MD Specimen: [id number] Received: 07/12/25 Status: ELLYN Fernandez Num: [id number] Spec Type: BLADDER BX Subm Dr: Dr. Partha Malik MD HEADER OPERATION: Cysto, transurethral resection bladder tumor PRE-OP DIAGNOSIS: Bladder tumor TISSUE SUBMITTED: A- Bladder biopsy MICROSCOPIC DIAGNOSIS A. Bladder, transurethral resection bladder tumor: * High grade invasive urothelial carcinoma. * Lamina propria involved. * Muscularis propria present and involved. * IHC for GATA3 is positive, supporting the histologic impression. MICROSCOPIC DESCRIPTION Slides are reviewed. All matched controls reacted appropriately. These tests were developed and their performance characteristics determined by [facility]. They may not have been cleared or approved by the U.S. Food and Drug Administration. The FDA has determined that such clearance or approval is not necessary. The above immunohistochemical markers and/or special stains have been reviewed by the Pathologist. GROSS DESCRIPTION A. Received in formalin labeled with the patient's name and date of . Designated as bladder tumor is a 2.5 g, 4.0 x 3.3 x 0.7 cm aggregate of fields-pink to red, irregular, rubbery and cauterized tissue fragments. Entirely submitted in 3 cassettes. [place] 07/12/2025 CPT:00269,37255 Patient Age/Sex Location Account Attending Physician SHELDONMAXIME 74/M MS3 [id number] Dr. Partha Malik MD Signed (signature on file) Dr. Susanna Brewster MD 07/17/25 1008 Normal [facility] Comment on above: Performed By: #### P [facility] ####[facility] [address] [facility] [place], [address] MR/POSTOP.Andreea 07-12-2025 MR/POSTOP.[facility] Medical Records Department [address] [place] [address] Anesthesia Postop Eval I 07/12/25 1123 MR#: [id number] Acct: [id number] Name: JAZMÍN LOPEZAna SHARMABLANCA Rep #: [id number] : 1950 74 From: Aby Wagner CRNA PCP: Dr. Libra Mckeon MD Status:REG [facility] Y Race: C Location: [place] [address] Anesthesia: Postop Eval I Current Vital Signs Temperature: 97.4 F Pulse Rate: 80 Blood Pressure: 123/91 Respiratory Rate: 18 Pulse Ox: 93 Oxygen Delivery Method: Room Air Assessment Airway patent: Yes Spontaneous unlabored respirations: Yes Mental status: Awake nausea: No Vomiting: No Anesthesia Complication: No Fluid Hydration Crystalloid volume administer (ml): 900 Total IV fluid infused: 900 Progress Note Anesthesia document: Postop Eval 1 completed: Yes 07/12/25 1129 Date Aby ca WAREHOUSE INVENTORY CLERK Cosigner Signature: Date CC: Signed Normal [facility] MR/[id number] 07-12-2025 [facility] Medical Records Department [address] [place] [address] Anesthesia Postop Eval II 07/12/25 1158 MR#: [id number] Acct: [id number] Name: MAXIME LOPEZ Rep #: [id number] : 1950 74 From: Dony Moy MD PCP: Dr. Libra Mckeon MD Status:REG [facility] Y Race: C Location: [place] [address] Anesthesia Postop Eval I Sum Postop Eval Completion status Anesthesia document: Postop Eval 1 completed: Yes Anesthesia Postop Eval I Summary Anesthesia Postop Eval I Summary: Anesthesia Postop Eval I: Assessment Summary Airway patent Yes 07/12/25 11:29 WAREHOUSE INVENTORY CLERK.CSIR Spontaneous unlabored Yes 07/12/25 11:29 WAREHOUSE INVENTORY CLERK.CSIR respirations Mental status Awake 07/12/25 11:29 WAREHOUSE INVENTORY CLERK.CSIR nausea No 07/12/25 11:29 WAREHOUSE INVENTORY CLERK.CSIR Vomiting No 07/12/25 11:29 WAREHOUSE INVENTORY CLERK.CSIR Anesthesia Postop Eval I: Fluid Summary Crystalloid volume administer 900 07/12/25 11:29 WAREHOUSE INVENTORY CLERK.CSIR (ml) Colloids volume administered ( ml) Blood Product volume administered (ml) Total IV fluid infused 900 07/12/25 11:29 WAREHOUSE INVENTORY CLERK.CSIR Anesthesia Postop Eval I: Summary Notes Anesthesia Complication No 07/12/25 11:29 WAREHOUSE INVENTORY CLERK.CSIR Anesthesia Complication Comment: Post-operative progress note Anesthesia: Postop Eval II Evaluation Mental status: Awake Pain Level: 1 nausea: No Vomiting: No 07/12/25 1158 Date Dony Jones Signature: Date CC: Signed Normal [facility] Operative Reporton 5 Operative Report [facility] Medical Records Department [address] [place] [address] Operative Report 07/12/25 1114 MR#: [id number] Acct: [id number] Name: MAXIME LOPEZ Rep #: [id number] : 1950 74 From: Partha Malik MD PCP: Dr. Libra Mckeon MD Status:[facility] Location: [place] [address] Operative Report (Standard) Operative Information Date of Procedure: 07/12/25 Pre-Operative Diagnosis: Large bladder tumor Post-Operative Diagnosis: The same Surgery/Procedure Performed: Transurethral section of the large bladder tumor car dumper operator: No Type of Anesthesia: General RN Documented Start/Stop Times: Operation Date: 07/12/25 10:30 Case Time Into Pre-Op 07/12/25 08:19 Out of Pre-Op 07/12/25 10:23 Anesthesia Start 07/12/25 10:29 Into Room 07/12/25 10:29 Procedure Start 07/12/25 10:48 Procedure End 07/12/25 11:10 Procedure Start Time: 10:48 Procedure Stop Time: 11:15 Select all DRAINS/GRAFTS/IMPLAN TS that apply: Drains Drain details: Three-way catheter irrigation Estimated Blood Loss: 25 cc Specimen collected: Yes Description of specimen(s) removed: Bladder tumor Description of surgery: A 74-year-old male had gross hematuria CAT scan was done that demonstrated the thickened bladder cystoscopy was then done and demonstrated what appeared to be a tumor in the dome of the bladder up by the bladder neck anterior so he was taken back to the operating room after smooth induction of anesthesia he was placed in dorsolithotomy position went in the bladder with a resectoscope the tumor tumor was coming down from the anterior part of the bladder looked very hard it also looked invasive started resecting resected deep into the muscle and appeared to get the entire tumor out but this appeared to be an invasive tumor very hard looking tumor very concerning for invasion into the muscle for my perspective after resecting this tumor then he had a lot of of what 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 Surgical Findings: Large tumor > 5cm in the dome of the bladder resected the tumor appeared to be hard and sessile and invasive Complications Complications: No Admit VTE Documentation VTE Present on Admission: No VTE Mechan Device Prophylaxis: SCD's VTE Pharm Prophylaxis ordered?: No 07/12/25 1117 Cosigner Signature (if applicable): CC: Dr. Libra Mckeon MD; Dr. Partha Malik MD Signed Normal [facility] Anion gap in Serum or Plasma Ordered By: Libra Mckeon on 07-02-2025 Anion gap [Moles/Vol] 12 mmol/L - [facility] BUN/creatinine ratioOrdered By: Libra Mckeon on 07-02-2025 Urea nitrogen/Creatinine [Mass ratio] 12.4 mg/mg - [facility] Bilirubin, totalOrdered By: Libra Mckeon on 07-02-2025 Bilirubin [Mass/Vol] 0.86 mg/dL 0.00-1.30 [facility] CBC-Complete Blood Cnt No Di ffon 07-02-2025 Erythrocyte distribution width (RBC) [Ratio] 13.2 % Normal 11.6-14.6 [facility] Comment on above: Order Comment: Order Date: 05/24/25Order Info: [id number] - CBC Performed By: #### L 500.4050, L100.0500, L501.9910, L500.4100 ####[facility] [address] [place], [address] Hematocrit (Bld) [Volume fraction] 43.3 % Normal 40-54 [facility] Comment on above: Order Comment: Order Date: 05/24/25Order Info: [id number] - CBC Performed By: #### L 500.4050, L100.0500, L501.9910, L500.4100 ####[facility] [address] [place], [address] Hemoglobin (Bld) [Mass/Vol] 14.3 g/dL Normal 13.0-16.5 [facility] Comment on above: Order Comment: Order Date: 05/24/25Order Info: [id number] - CBC Performed By: #### L 500.4050, L100.0500, L501.9910, L500.4100 ####[facility] [address] [place], [address] MCH (RBC) [Entitic mass] 31.3 pg Normal 27.0-32.0 [facility] Comment on above: Order Comment: Order Date: 05/24/25Order Info: [id number] - CBC Performed By: #### L 500.4050, L100.0500, L501.9910, L500.4100 ####[facility] [address] [place], [address] MCHC (RBC) [Mass/Vol] 33.0 g/dL Normal 32-36 [facility] Comment on above: Order Comment: Order Date: 05/24/25Order Info: [id number] - CBC Performed By: #### L 500.4050, L100.0500, L501.9910, L500.4100 ####[facility] [address] [place], [address] MCV (RBC) [Entitic vol] 94.7 fL High 80-94 [facility] Comment on above: Order Comment: Order Date: 05/24/25Order Info: [id number] - CBC Performed By: #### L 500.4050, L100.0500, L501.9910, L500.4100 ####[facility] [address] [place], [address] Platelet mean volume (Bld) [Entitic vol] 9.1 fL Normal 6.2-12.0 [facility] Comment on above: Order Comment: Order Date: 05/24/25Order Info: [id number] - CBC Performed By: #### L 500.4050, L100.0500, L501.9910, L500.4100 ####[facility] [address] [place], [address] Platelets (Bld) [#/Vol] 272 10*3/uL Normal 150-450 [facility] Comment on above: Order Comment: Order Date: 05/24/25Order Info: [id number] - CBC Performed By: #### L 500.4050, L100.0500, L501.9910, L500.4100 ####[facility] [address] [place], [address] RBC (Bld) [#/Vol] 4.57 10*6/uL Low 4.6-6.2 [facility] Comment on above: Order Comment: Order Date: 05/24/25Order Info: [id number] - CBC Performed By: #### L 500.4050, L100.0500, L501.9910, L500.4100 ####[facility] [address] [place], [address] RDW SD 45.7 fl High 35.1-43.9 [facility] Comment on above: Order Comment: Order Date: 05/24/25Order Info: [id number] - CBC Performed By: #### L 500.4050, L100.0500, L501.9910, L500.4100 ####[facility] [address] [place], [address] WBC (Bld) [#/Vol] 5.5 10*3/uL Normal 4.4-11.0 [facility] Comment on above: Order Comment: Order Date: 05/24/25Order Info: [id number] - CBC Performed By: #### L 500.4050, L100.0500, L501.9910, L500.4100 ####[facility] [address] [place], [address] Calculated very low density lipoprotein (VLDL) cholesterol measurementOrdered By: Libra Mckeon on 07-02-2025 Calculated very low density lipoprotein (VLDL) cholesterol measurement 22 mg/dL 5-40 [facility] Carbon dioxide, total [Moles /volume] in Central venous bloodOrdered By: Libra Mckeon on 07-02-2025 CO2 [Moles/Vol] 22.9 mmol/L 21.0-32.0 [facility] Chloride assayOrdered By: Elsy Mckeon on 07-02-2025 Chloride [Moles/Vol] 104 mmol/L 98-108 [facility] Comprehensive Metabolic Prof ilon 07-02-2025 Albumin [Mass/Vol] 4.0 g/dL Normal 3.4-4.8 [place] [facility] Comment on above: Order Comment: Order Date: 05/24/25Order Info: [id number] - CMPOrder Info: [id number] - LIPIDOrder Info: [id number] - PSA Performed By: #### L 500.4050, L100.0500, L501.9910, L500.4100 ####[facility] [address] [place], [address] Albumin/Globulin [Mass ratio] 1.5 {ratio} Normal 0.9-2.4 [facility] Comment on above: Order Comment: Order Date: 05/24/25Order Info: [id number] - CMPOrder Info: [id number] - LIPIDOrder Info: [id number] - PSA Performed By: #### L 500.4050, L100.0500, L501.9910, L500.4100 ####[facility] [address] [place], [address] ALK PHOS 64 U/L Normal 40-129 [facility] Comment on above: Order Comment: Order Date: 05/24/25Order Info: [id number] - CMPOrder Info: [id number] - LIPIDOrder Info: [id number] - PSA Performed By: #### L 500.4050, L100.0500, L501.9910, L500.4100 ####[facility] [address] [place], [address] ALT [Catalytic activity/Vol] 11 U/L Normal <=46 [facility] Comment on above: Order Comment: Order Date: 05/24/25Order Info: [id number]- - CMPOrder Info: [id number] - LIPIDOrder Info: [id number] - PSA Performed By: #### L 500.4050, L100.0500, L501.9910, L500.4100 ####[facility] [address] [place], [address] AST [Catalytic activity/Vol] 14 U/L Normal <=37 [facility] Comment on above: Order Comment: Order Date: 05/24/25Order Info: [id number] - CMPOrder Info: [id number] - LIPIDOrder Info: [id number] - PSA Performed By: #### L 500.4050, L100.0500, L501.9910, L500.4100 ####[facility] [address] [place], [address] Bilirubin [Mass/Vol] 0.86 mg/dL Normal 0.00-1.30 [facility] Comment on above: Order Comment: Order Date: 05/24/25Order Info: [id number] - CMPOrder Info: [id number] - LIPIDOrder Info: [id number] - PSA Performed By: #### L 500.4050, L100.0500, L501.9910, L500.4100 ####[facility] [address] [place], [address] BUN/CRE 12.4 RATIO Normal 10-20 [facility] Comment on above: Order Comment: Order Date: 05/24/25Order Info: [id number] - CMPOrder Info: [id number] - LIPIDOrder Info: [id number] - PSA Performed By: #### L 500.4050, L100.0500, L501.9910, L500.4100 ####[facility] [address] [place], [address] Calcium [Mass/Vol] 9.3 mg/dL Normal 7.6-11.0 [facility] Comment on above: Order Comment: Order Date: 05/24/25Order Info: [id number]- - CMPOrder Info: [id number] - LIPIDOrder Info: [id number] - PSA Performed By: #### L 500.4050, L100.0500, L501.9910, L500.4100 ####[facility] [address] [place], [address] Chloride [Moles/Vol] 104 mmol/L Normal 98-108 [facility] Comment on above: Order Comment: Order Date: 05/24/25Order Info: [id number] - CMPOrder Info: [id number] - LIPIDOrder Info: [id number] - PSA Performed By: #### L 500.4050, L100.0500, L501.9910, L500.4100 ####[facility] [address] [place], [address] CO2 [Moles/Vol] 22.9 mmol/L Normal 21.0-32.0 [facility] Comment on above: Order Comment: Order Date: 05/24/25Order Info: [id number] - CMPOrder Info: [id number] - LIPIDOrder Info: [id number] - PSA Performed By: #### L 500.4050, L100.0500, L501.9910, L500.4100 ####[facility] [address] [place], [address] Creatinine [Mass/Vol] 0.95 mg/dL Normal 0.70-1.20 [facility] Comment on above: Order Comment: Order Date: 05/24/25Order Info: [id number]- - CMPOrder Info: [id number] - LIPIDOrder Info: [id number] - PSA Performed By: #### L 500.4050, L100.0500, L501.9910, L500.4100 ####[facility] [address] [place], [address] GAP 12 Normal 5-15 [facility] Comment on above: Order Comment: Order Date: 05/24/25Order Info: [id number] - CMPOrder Info: - LIPIDOrder Info: [id number] - PSA Performed By: #### L 500.4050, L100.0500, L501.9910, L500.4100 ####[facility] [address] [place], [address] GFR/1.73 sq M.predicted among non-blacks MDRD (S/P/Bld) [Vol rate/Area] 84 mL/min/{1.73_m2} Normal >60 [facility] Comment on above: Order Comment: Order Date: 05/24/25Order Info: [id number]- - CMPOrder Info: [id number] - LIPIDOrder Info: [id number] - PSA Result Comment: mL/m in/1.73m2 CKD-EPI Creatinine Equation (2020) Performed By: #### L 500.4050, L100.0500, L501.9910, L500.4100 ####[facility] [address] [place], [address] Globulin (S) [Mass/Vol] 2.6 g/dL Normal 2.2-4.2 [facility] Comment on above: Order Comment: Order Date: 05/24/25Order Info: [id number] - CMPOrder Info: [id number] - LIPIDOrder Info: [id number] - PSA Performed By: #### L 500.4050, L100.0500, L501.9910, L500.4100 ####[facility] [address] [place], [address] Glucose [Mass/Vol] 105 mg/dL High 70-99 [facility] Comment on above: Order Comment: Order Date: 05/24/25Order Info: [id number] - CMPOrder Info: [id number] - LIPIDOrder Info: [id number] - PSA Performed By: #### L 500.4050, L100.0500, L501.9910, L500.4100 ####[facility] [address] [place], [address] Potassium [Moles/Vol] 4.2 mmol/L Normal 3.3-5.1 [facility] Comment on above: Order Comment: Order Date: 05/24/25Order Info: [id number] - CMPOrder Info: [id number] - LIPIDOrder Info: [id number] - PSA Performed By: #### L 500.4050, L100.0500, L501.9910, L500.4100 ####[facility] [address] [place], [address] Sodium [Moles/Vol] 138 mmol/L Normal 133-145 [facility] Comment on above: Order Comment: Order Date: 05/24/25Order Info: [id number] - CMPOrder Info: [id number] - LIPIDOrder Info: [id number] - PSA Performed By: #### L 500.4050, L100.0500, L501.9910, L500.4100 ####[facility] [address] [place], [address] T PROT 6.6 g/dL Normal 5.9-8.4 [facility] Comment on above: Order Comment: Order Date: 05/24/25Order Info: [id number] - CMPOrder Info: [id number] - LIPIDOrder Info: [id number] - PSA Performed By: #### L 500.4050, L100.0500, L501.9910, L500.4100 ####[facility] [address] [place], [address] Urea nitrogen [Mass/Vol] 12 mg/dL Normal 4-19 [facility] Comment on above: Order Comment: Order Date: 05/24/25Order Info: [id number] - CMPOrder Info: [id number] - LIPIDOrder Info: [id number] - PSA Performed By: #### L 500.4050, L100.0500, L501.9910, L500.4100 ####[facility] [address] [place], [address] Erythrocyte distribution wid th ratioOrdered By: Libra Mckeon on 07-02-2025 Erythrocyte distribution width (RBC) [Ratio] 13.2 % 11.6-14.6 [facility] Erythrocyte distribution wid th standard deviationOrdered By: Libra Mckeon on 07-02-2025 Erythrocyte distribution width (RBC) [Ratio] 45.7 fl High 35.1-43.9 [facility] Glomerular filtration rate ( GFR) estimation/1.73 sq m using serum, plasma, or whole bOrdered By: Libra Mckeon on 07-02-2025 GFR/1.73 sq M.predicted among non-blacks MDRD (S/P/Bld) [Vol rate/Area] 84 mL/min/{1.73_m2} >60 [facility] Comment on above: mL/min/1.73m2 CKD-EP I Creatinine Equation (2020) Hematocrit Auto (Bld) [Volum e fraction]Ordered By: Libra Mckeno on 07-02-2025 Hematocrit (Bld) [Volume fraction] 43.3 % 40-54 [facility] Hemoglobin measurementOrdere d By: Fabiodanis Linda on 07-02-2025 Hemoglobin (Bld) [Mass/Vol] 14.3 g/dL 13.0-16.5 [facility] LDL calc ser/plasOrdered By: Libra Mckeon on 07-02-2025 Cholesterol in LDL [Mass/Vol] 142 mg/dL [facility] Comment on above: Wppcdpnaok=361-486 m g/dL & Higher Zcpe=830 mg/dL or greaterFriedwald Equation for LDL-C Laboratory - Chemistry and C hemistry - challengeOrdered By: Libra Mckeon on 07-02-2025 AST [Catalytic activity/Vol] 14 U/L <38 [facility] Lipid Profileon 07-02-2025 CHOL:HDL 4.93 Normal [facility] Comment on above: Order Comment: Order Date: 05/24/25Order Info: [id number] - CMPOrder Info: [id number] - LIPIDOrder Info: [id number] - PSA Performed By: #### L 500.4050, L100.0500, L501.9910, L500.4100 ####[facility] [address] [place], [address] Cholesterol [Mass/Vol] 206 mg/dL High <=200 [facility] Comment on above: Order Comment: Order Date: 05/24/25Order Info: [id number] - CMPOrder Info: [id number] - LIPIDOrder Info: [id number] - PSA Result Comment: Chol esterol level, Desirable <200 mg/dL Borderline high cholesterol 200-239 mg/dL High cholesterol >=240 mg/dL Recommendations of the NCEP Adult Treatment Panel for the following risk-cutoff thresholds for the [place] population. Performed By: #### L 500.4050, L100.0500, L501.9910, L500.4100 ####[facility] [address] [place], [address] Cholesterol in HDL [Mass/Vol] 42 mg/dL Normal [facility] Comment on above: Order Comment: Order Date: 05/24/25Order Info: [id number]- - CMPOrder Info: [id number] - LIPIDOrder Info: [id number] - PSA Result Comment: [place]en onal Cholesterol Education Program (NCEP) guidelines: <40 mg/dL: Low HDL-cholesterol (major risk factor for CHD) >= 60 mg/dL: High HDL-cholesterol (negative risk factor for CHD) HDL-cholesterol is affected by a number of factors, e.g. smoking, exercise, hormones, sex and age. Performed By: #### L 500.4050, L100.0500, L501.9910, L500.4100 ####[facility] [address] [place], [address] Cholesterol in LDL [Mass/Vol] 142 mg/dL Normal [facility] Comment on above: Order Comment: Order Date: 05/24/25Order Info: [id number] - CMPOrder Info: - LIPIDOrder Info: [id number] - PSA Result Comment: Bord kahimn=500-617 mg/dL Higher Uafj=942 mg/dL or greater Friedwald Equation for LDL-C Performed By: #### L 500.4050, L100.0500, L501.9910, L500.4100 ####[facility] [address] [place], [address] Cholesterol in VLDL [Mass/Vol] 22 mg/dL Normal 5-40 [facility] Comment on above: Order Comment: Order Date: 05/24/25Order Info: [id number] - CMPOrder Info: - LIPIDOrder Info: [id number] - PSA Performed By: #### L 500.4050, L100.0500, L501.9910, L500.4100 ####[facility] [address] [place], [address] Triglyceride [Mass/Vol] 109 mg/dL Normal [facility] Comment on above: Order Comment: Order Date: 05/24/25Order Info: [id number] - CMPOrder Info: [id number] - LIPIDOrder Info: [id number] - PSA Result Comment: The drugs N-Acetylcysteine and Metamizole may falsely depress this assay. Normal range: <150 mg/dL Borderline High: 150-199 mg/dL High: 200-499 mg/dL Very High: >500 mg/dL Performed By: #### L 500.4050, L100.0500, L501.9910, L500.4100 ####[facility] [address] [place], [place], [id number] MCV (mean corpuscular volume ) determinationOrdered By: Libra Mckeon on 07-02-2025 MCV (RBC) [Entitic vol] 94.7 fL High 80-94 [facility] Mean corpuscular hemoglobin (MCH) determinationOrdered By: [facility] on 07-02-2025 MCH (RBC) [Entitic mass] 31.3 pg 27.0-32.0 [facility] Mean corpuscular hemoglobin concentration (MCHC) determinationOrdered By: [facility] on 07-02-2025 MCHC (RBC) [Mass/Vol] 33.0 g/dL 32-36 [facility] Mean platelet volume determi nationOrdered By: [facility] on 07-02-2025 Platelet mean volume (Bld) [Entitic vol] 9.1 fL 6.2-12.0 [facility] PSA,Total - Annual Screenon 07-02-2025 PSA,TOT SCREEN 1.30 ng/mL Normal 0.02-4.00 [facility] Comment on above: Order Comment: Order Date: 05/24/25Order Info: [id number] - CMPOrder Info: [id number] - LIPIDOrder Info: [id number] - PSA Result Comment: This test was performed using the [employer] tPSA method. Measured values of a patient??sample can vary depending on the testing procedure used. PSA values determined on patient samples by different testing procedures cannot be used interchangeably. If there is a change in PSA assays while monitoring therapy, sequential testing should be performed to confirm baseline values. Performed By: #### L 500.4050, L100.0500, L501.9910, L500.4100 ####[facility] [address] [place], [address] Platelet countOrdered By: Elsy Mckeon on 07-02-2025 Platelets (Bld) [#/Vol] 272 10*3/uL 150-450 [facility] Potassium measurement (mass/ volume)Ordered By: Libra Mckeon on 07-02-2025 Potassium (Unsp spec) [Mass/Vol] 4.2 mmol/L 3.3-5.1 [facility] RBC Auto (Bld) [#/Vol]Ordere d By: Libra Mckeon on 07-02-2025 RBC (Bld) [#/Vol] 4.57 10*6/uL Low 4.6-6.2 [facility] Screening total cholesterol/ high density lipoprotein (HDL) cholesterol ratioOrdered By: Libra Mckeon on 07-02-2025 Cholesterol.total/Choles terol in HDL [Mass ratio] 4.93 {ratio} [facility] Serum creatinine measurement (mass/volume)Ordered By: Libra Mckeon on 07-02-2025 Creatinine [Mass/Vol] 0.95 mg/dL 0.70-1.20 [facility] Serum globulin measurementOr dered By: Libra Mckeon on 07-02-2025 Globulin (S) [Mass/Vol] 2.6 g/dL 2.2-4.2 [facility] Serum glucose measurement (m ass/volume)Ordered By: Libra Mckeon on 07-02-2025 Glucose [Mass/Vol] 105 mg/dL High 70-99 [facility] Serum or plasma alanine jewell otransferase (ALT) measurementOrdered By: Libra Mckeon on 07-02-2025 ALT [Catalytic activity/Vol] 11 U/L <47 [facility] Serum or plasma albumin jocelynn urement (mass/volume)Ordered By: Libra Mckeon on 07-02-2025 Albumin [Mass/Vol] 4.0 g/dL 3.4-4.8 [facility] Serum or plasma albumin/glob ulin mass ratioOrdered By: Libra Mckeon on 07-02-2025 Albumin/Globulin [Mass ratio] 1.5 {ratio} 0.9-2.4 [facility] Serum or plasma alkaline nica sphatase measurementOrdered By: Libar Mckeon on 07-02-2025 ALP [Catalytic activity/Vol] 64 U/L 40-129 [facility] Serum or plasma calcium jocelynn urement (mass/volume)Ordered By: Libra Mckeon on 07-02-2025 Calcium [Mass/Vol] 9.3 mg/dL 7.6-11.0 [facility] Serum or plasma cholesterol in HDL measurement (mass/volume)Ordered By: Libra Mckeon on 07-02-2025 Cholesterol in HDL [Mass/Vol] 42 mg/dL >40 [facility] Comment on above: National Cholesterol Education Program (NCEP) guidelines:<40 mg/dL: Low HDL-cholesterol (major risk factor for CHD)>= 60 mg/dL: High HDL-cholesterol (negative risk factor for CHD)HDL-cholesterol is affected by a number of factors, e.g. smoking, exercise, hormones, sex and age. Serum or plasma cholesterol measurement (mass/volume)Ordered By: Libra Mckeon on 07-02-2025 Cholesterol [Mass/Vol] 206 mg/dL High <201 [facility] Comment on above: Cholesterol level, D esirable <200 mg/dLBorderline high cholesterol 200-239 mg/dLHigh cholesterol >=240 mg/dLRecommendations of the NCEP Adult Treatment Panel for the following risk-cutoff thresholds for the [place] population. Serum or plasma urea nitroge n measurement (mass/volume)Ordered By: Libra Mckeon on 07-02-2025 Urea nitrogen [Mass/Vol] 12 mg/dL 4-19 [facility] Sodium levelOrdered By: Fabio Mckeon on 07-02-2025 Sodium [Moles/Vol] 138 mmol/L 133-145 [facility] Total proteinOrdered By: Iris Mckeon on 07-02-2025 Protein [Mass/Vol] 6.6 g/dL 5.9-8.4 [facility] Triglycerides measurementOrd ered By: Libra Mckeon on 07-02-2025 Triglyceride [Mass/Vol] 109 mg/dL <199 [facility] Comment on above: The drugs N-Acetylcy steine and Metamizole may falsely depress this assay. Normal range: <150 mg/dLBorderline High: 150-199 mg/dLHigh: 200-499 mg/dLVery High: >500 mg/dL White blood cell (WBC) count Ordered By: Libra Mckeon on 07-02-2025 WBC (Bld) [#/Vol] 5.5 10*3/uL 4.4-11.0 [facility] CT Abd/Pelvis W/WO Contrasto n 06-27-2025 CT Abd/Pelvis W/WO Contrast [facility] Imaging Services [address] [place], [place] [address] CT Abd/Pelvis W/WO Contrast MR#: [id number] Acct: [id number] Name: MAXIME LOPEZ Rep #: [id number] : 1950 M 74 From: Bonnie Gallardo MD PCP: Dr. Libra Mckeon MD Status: REG CLI Study: CT Abd/Pelvis W/WO Contrast Date of Exam: 06/10 06/03 Exam# [id number] Ordering Dr: Partha Malik MD PROCEDURE: CT ABD/PELVIS W/WO CONTRAST 06/27/2025 REASON FOR EXAM: GROSS HEMATURIA TECHNIQUE: Procedure Code: CTABDPELWW Modality: CT Procedure: CT ABD/PELVIS W/WO CONTRAST Coronal and Sagittal reconstruction series were provided. CONTRAST: Isovue 370 VOLUME: 100 ML One or more dose reduction techniques were used (e.g., Automated exposure control, adjustment of the mA and/or kV according to patient size, use of iterative reconstruction technique. RADIATION DOSE SUMMARY: CTDlvol: 33.94 mGy DLP: 4352.84 mGycm COMPARISON: CT abdomen and pelvis 11/25/2020. FINDINGS: Lung bases: Clear. Liver: Multiple simple kidney cysts with the largest in the left hepatic lobe measures 1.8 cm. Gallbladder: Unremarkable bladder. No hydronephrosis. Spleen: Unremarkable. Pancreas: Unremarkable. Adrenals: Unremarkable. Kidneys: Perinephric fat stranding. No hydronephrosis. A 3 mm nonobstructing stone at the midpole of the left kidney. No kidney masses. Bladder: Decompressed bladder. Bladder wall thickening and surrounding fat stranding consistent with acute cystitis. Reproductive Organs: Unremarkable. Bowel: No bowel wall thickening. No bowel obstruction. Appendix: Unremarkable. Lymph nodes: No lymphadenopathy. Vasculature: No aneurysm. Peritoneum / Retroperitoneum: No free air or free fluid. Bones: No acute bony abnormality. A Schmorl node at the upper endplate of T12. CT/CT Abd/Pelvis W/WO Contrast IMPRESSION: Perinephric fat stranding. No hydronephrosis. A 3 mm nonobstructing stone at the midpole of the left kidney. No kidney masses. Bladder wall thickening and surrounding fat stranding consistent with acute cystitis. Reading Location: [facility] CC: Dr. Libra Mckeon MD; Dr. Partha Malik MD Pipe Stem Sawyer: Signed Normal [facility] Absolute lymphocyte countOrd ered By: Akhil Hanson on 05-24-2025 Lymphocytes Auto (Unsp spec) [#/Vol] 1.37 10*3/uL 0.83-4.51 [facility] Absolute neutrophil countOrd ered By: Akhil Hanson on 05-24-2025 Neutrophils (Bld) [#/Vol] 2.9 10*3/uL 2.0-7.7 [facility] Anion gap in Serum or Plasma Ordered By: Akhil Hanson on 05-24-2025 Anion gap [Moles/Vol] 12 mmol/L - [facility] Automated lymphocyte count a s percentage of total leukocytesOrdered By: Akhil Hanson on 05-24-2025 Lymphocytes/100 WBC Auto (Unsp spec) 28.5 % - [facility] BUN/creatinine ratioOrdered By: Akhil Hanson on 05-24-2025 Urea nitrogen/Creatinine [Mass ratio] 17.2 mg/mg - [facility] Basic Metabolic Profile (BMP )on 05-24-2025 BUN/CRE 17.2 RATIO Normal - [facility] Comment on above: Order Comment: PT WI LL DO DR MCKEON ORDERS IN WITH HIS NEXT APPT. -EEGG Performed By: #### L 500.2500, L100.0100 ####[facility] [address] [place], [address] Calcium [Mass/Vol] 9.0 mg/dL Normal 7.6-11.0 [facility] Comment on above: Order Comment: PT WI LL DO DR MCKEON ORDERS IN WITH HIS NEXT APPT. -EEGG Performed By: #### L 500.2500, L100.0100 ####[facility] [address] [place], [address] Chloride [Moles/Vol] 104 mmol/L Normal 98-108 [facility] Comment on above: Order Comment: PT WI LL DO DR MCKEON ORDERS IN WITH HIS NEXT APPT. -EEGG Performed By: #### L 500.2500, L100.0100 ####[facility] [address] [place], [address] CO2 [Moles/Vol] 22.1 mmol/L Normal 21.0-32.0 [facility] Comment on above: Order Comment: PT NIRAJ LL DO DR MCKEON ORDERS IN WITH HIS NEXT APPT. -EEGG Performed By: #### L 500.2500, L100.0100 ####[facility] [address] [place], [address] Creatinine [Mass/Vol] 0.99 mg/dL Normal 0.70-1.20 [facility] Comment on above: Order Comment: PT NIRAJ LL DO DR MCKEON ORDERS IN WITH HIS NEXT APPT. -EEGG Performed By: #### L 500.2500, L100.0100 ####[facility] [address] [place], [address] GAP 12 Normal 5-15 [facility] Comment on above: Order Comment: PT NIRAJ LL DO DR MCKEON ORDERS IN WITH HIS NEXT APPT. -EEGG Performed By: #### L 500.2500, L100.0100 ####[facility] [address] [place], [address] GFR/1.73 sq M.predicted among non-blacks MDRD (S/P/Bld) [Vol rate/Area] 80 mL/min/{1.73_m2} Normal >60 [facility] Comment on above: Order Comment: PT WI LL DO DR MCKEON ORDERS IN WITH HIS NEXT APPT. -EEGG Result Comment: mL/m in/1.73m2 CKD-EPI Creatinine Equation (2020) Performed By: #### L 500.2500, L100.0100 ####[facility] [address] [place], [address] Glucose [Mass/Vol] 106 mg/dL High 70-99 [facility] Comment on above: Order Comment: PT WI LL DO DR MCKEON ORDERS IN WITH HIS NEXT APPT. -EEGG Performed By: #### L 500.2500, L100.0100 ####[facility] [address] [place], [address] Potassium [Moles/Vol] 3.9 mmol/L Normal 3.3-5.1 [facility] Comment on above: Order Comment: PT NIRAJ LL DO DR MCKEON ORDERS IN WITH HIS NEXT APPT. -EEGG Performed By: #### L 500.2500, L100.0100 ####[facility] [address] [place], [address] Sodium [Moles/Vol] 138 mmol/L Normal 133-145 [facility] Comment on above: Order Comment: PT NIRAJ LL DO DR MCKEON ORDERS IN WITH HIS NEXT APPT. -EEGG Performed By: #### L 500.2500, L100.0100 ####[facility] [address] [place], [address] Urea nitrogen [Mass/Vol] 17 mg/dL Normal 4-19 [facility] Comment on above: Order Comment: PT WI LL DO DR MCKEON ORDERS IN WITH HIS NEXT APPT. -EEGG Performed By: #### L 500.2500, L100.0100 ####[facility] [address] [place], [address] Basophil percentageOrdered B y: Akhil Hanson on 08-15-2025 Basophils/100 WBC (Bld) 0.8 % 0-1 [facility] CBC W/Diff, Automatedon 05-10-2024 Absolute Lymph 1.37 X10 3/uL Normal 0.83-4.51 [facility] Comment on above: Order Comment: PT NIRAJ LL DO DR MCKEON ORDERS IN WITH HIS NEXT APPT. - EEGG Performed By: #### L 500.2500, L100.0100 #### [facility] [address] [place], [address] Absolute Neut 2.9 X10 3/uL Normal 2.0-7.7 [facility] Comment on above: Order Comment: PT NIRAJ LL DO DR MCKEON ORDERS IN WITH HIS NEXT APPT. - EEGG Performed By: #### L 500.2500, L100.0100 #### [facility] [address] [place], [address] Basophils/100 WBC (Bld) 0.8 % Normal 0-1 [facility] Comment on above: Order Comment: PT NIRAJ LL DO DR MCKEON ORDERS IN WITH HIS NEXT APPT. - EEGG Performed By: #### L 500.2500, L100.0100 #### [facility] [address] [place], [address] Eosinophils/100 WBC (Bld) 2.7 % Normal 0-5 [facility] Comment on above: Order Comment: PT NIRAJ LL DO DR MCKEON ORDERS IN WITH HIS NEXT APPT. - EEGG Performed By: #### L 500.2500, L100.0100 #### [facility] [address] [place], [address] Erythrocyte distribution width (RBC) [Ratio] 13.1 % Normal 11.6-14.6 [facility] Comment on above: Order Comment: PT NIRAJ LL DO DR MCKEON ORDERS IN WITH HIS NEXT APPT. - EEGG Performed By: #### L 500.2500, L100.0100 #### [facility] [address] [place], [address] Hematocrit (Bld) [Volume fraction] 41.1 % Normal 40-54 [facility] Comment on above: Order Comment: PT NIRAJ LL DO DR MCKEON ORDERS IN WITH HIS NEXT APPT. - EEGG Performed By: #### L 500.2500, L100.0100 #### [facility] [address] [place], [address] Hemoglobin (Bld) [Mass/Vol] 14.0 g/dL Normal 13.0-16.5 [facility] Comment on above: Order Comment: PT NIRAJ DO DR MCKEON ORDERS IN WITH HIS NEXT APPT. - EEGG Performed By: #### L 500.2500, L100.0100 #### [facility] [address] [place], [address] IG% 0.400 Normal 0.0-0.9 [facility] Comment on above: Order Comment: PT NIRAJ DE LA CRUZ DO DR MCKEON ORDERS IN WITH HIS NEXT APPT. - EEGG Result Comment: IG% - Immature Granulocytes (promyelocytes, myelocytes and metamyelocytes) > 1% indicates that a LEFT SHIFT is Present. Performed By: #### L 500.2500, L100.0100 #### [facility] [address] [place], [address] Lymphocytes/100 WBC (Bld) 28.5 % Normal 19-41 [facility] Comment on above: Order Comment: PT NIRAJ LL DO DR MCKEON ORDERS IN WITH HIS NEXT APPT. - EEGG Performed By: #### L 500.2500, L100.0100 #### [facility] [address] [place], [address] MCH (RBC) [Entitic mass] 31.4 pg Normal 27.0-32.0 [facility] Comment on above: Order Comment: PT NIRAJ DE LA CRUZ DO DR MCKEON ORDERS IN WITH HIS NEXT APPT. - EEGG Performed By: #### L 500.2500, L100.0100 #### [facility] [address] [place], [address] MCHC (RBC) [Mass/Vol] 34.1 g/dL Normal 32-36 [facility] Comment on above: Order Comment: PT NIRAJ DE LA CRUZ DO DR MCKEON ORDERS IN WITH HIS NEXT APPT. - EEGG Performed By: #### L 500.2500, L100.0100 #### [facility] [address] [place], [address] MCV (RBC) [Entitic vol] 92.2 fL Normal 80-94 [facility] Comment on above: Order Comment: PT NIRAJ DE LA CRUZ DO DR MCKEON ORDERS IN WITH HIS NEXT APPT. - EEGG Performed By: #### L 500.2500, L100.0100 #### [facility] [address] [place], [address] Monocytes/100 WBC (Bld) 7.5 % Normal 0-10 [facility] Comment on above: Order Comment: PT NIRAJ DE LA CRUZ DO DR MCKEON ORDERS IN WITH HIS NEXT APPT. - EEGG Performed By: #### L 500.2500, L100.0100 #### [facility] [address] [place], [address] Neutrophils/100 WBC (Bld) 60.1 % Normal 47-70 [facility] Comment on above: Order Comment: PT NIRAJ DE LA CRUZ DO DR MCKEON ORDERS IN WITH HIS NEXT APPT. - EEGG Performed By: #### L 500.2500, L100.0100 #### [facility] [address] [place], [address] Nucleated RBC (Bld) [#/Vol] 0 10*3/uL Normal 0-5 [facility] Comment on above: Order Comment: PT NIRAJ DE LA CRUZ DO DR MCKEON ORDERS IN WITH HIS NEXT APPT. - EEGG Performed By: #### L 500.2500, L100.0100 #### [facility] [address] [place], [address] Platelet mean volume (Bld) [Entitic vol] 9.4 fL Normal 6.2-12.0 [facility] Comment on above: Order Comment: PT NIRAJ LL DO DR LINDA ORDERS IN WITH HIS NEXT APPT. - EEGG Performed By: #### L 500.2500, L100.0100 #### [facility] [address] [place], [address] Platelets (Bld) [#/Vol] 243 10*3/uL Normal 150-450 [facility] Comment on above: Order Comment: PT NIRAJ LL DO DR LINDA ORDERS IN WITH HIS NEXT APPT. - EEGG Performed By: #### L 500.2500, L100.0100 #### [facility] [address] [place], [address] RBC (Bld) [#/Vol] 4.46 10*6/uL Low 4.6-6.2 [facility] Comment on above: Order Comment: PT NIRAJ LL DO DR LINDA ORDERS IN WITH HIS NEXT APPT. - EEGG Performed By: #### L 500.2500, L100.0100 #### [facility] [address] [place], [address] RDW SD 44.7 fl High 35.1-43.9 [facility] Comment on above: Order Comment: PT NIRAJ LL DO DR LINDA ORDERS IN WITH HIS NEXT APPT. - EEGG Performed By: #### L 500.2500, L100.0100 #### [facility] [address] [place], [address] WBC (Bld) [#/Vol] 4.8 10*3/uL Normal 4.4-11.0 [facility] Comment on above: Order Comment: PT NIRAJ LL DO DR LINDA ORDERS IN WITH HIS NEXT APPT. - EEGG Performed By: #### L 500.2500, L100.0100 #### [facility] [address] [place], [address] Carbon dioxide, total [Moles /volume] in Central venous bloodOrdered By: Akhil Hanson on 05-24-2025 CO2 [Moles/Vol] 22.1 mmol/L 21.0-32.0 [facility] Chloride assayOrdered By: Alo Hanson on 05-24-2025 Chloride [Moles/Vol] 104 mmol/L 98-108 [facility] Eosinophil percentageOrdered By: Akhil Hanson on 05-24-2025 Eosinophils/100 WBC (Bld) 2.7 % 0-5 [facility] Erythrocyte distribution wid th ratioOrdered By: Akhil Hanson on 05-24-2025 Erythrocyte distribution width (RBC) [Ratio] 13.1 % 11.6-14.6 [facility] Erythrocyte distribution wid th standard deviationOrdered By: Akhil Hanson on 05-24-2025 Erythrocyte distribution width (RBC) [Ratio] 44.7 fl High 35.1-43.9 [facility] Glomerular filtration rate ( GFR) estimation/1.73 sq m using serum, plasma, or whole bOrdered By: Akhil Hanson on 05-24-2025 GFR/1.73 sq M.predicted among non-blacks MDRD (S/P/Bld) [Vol rate/Area] 80 mL/min/{1.73_m2} >60 [facility] Comment on above: mL/min/1.73m2 CKD-EP I Creatinine Equation (2020) Hematocrit Auto (Bld) [Volum e fraction]Ordered By: Akhil Hanson on 05-24-2025 Hematocrit (Bld) [Volume fraction] 41.1 % 40-54 [facility] Hemoglobin measurementOrdere d By: Akhil Hanson on 05-24-2025 Hemoglobin (Bld) [Mass/Vol] 14.0 g/dL 13.0-16.5 [facility] Immature granulocytes/100 WB C Auto (Bld)Ordered By: Akhil Hanson on 05-24-2025 Immature granulocytes/100 WBC (Bld) 0.400 % 0.0-0.9 [facility] Comment on above: IG% - Immature Granu locytes (promyelocytes, myelocytes and metamyelocytes) > 1% indicates that a LEFT SHIFT is Present. MCV (mean corpuscular volume ) determinationOrdered By: Akhil Hanson on 05-24-2025 MCV (RBC) [Entitic vol] 92.2 fL 80-94 [facility] Mean corpuscular hemoglobin (MCH) determinationOrdered By: Akhil Hanson on 05-24-2025 MCH (RBC) [Entitic mass] 31.4 pg 27.0-32.0 [facility] Mean corpuscular hemoglobin concentration (MCHC) determinationOrdered By: Akhil Hanson on 05-24-2025 MCHC (RBC) [Mass/Vol] 34.1 g/dL 32-36 [facility] Mean platelet volume determi nationOrdered By: Akhil Hanson on 05-24-2025 Platelet mean volume (Bld) [Entitic vol] 9.4 fL 6.2-12.0 [facility] Monocyte percentageOrdered B y: Akhil Hanson on 05-24-2025 Monocytes/100 WBC (Bld) 7.5 % 0-10 [facility] Neutrophil percentageOrdered By: Akhil Hanson on 05-24-2025 Neutrophils/100 WBC (Bld) 60.1 % 47-70 [facility] Nucleated red blood cell per centageOrdered By: Akhil Hanson on 05-24-2025 Nucleated RBC/100 WBC (Bld) [Ratio] 0 % 0-5 [facility] Platelet countOrdered By: Alo Hanson on 05-24-2025 Platelets (Bld) [#/Vol] 243 10*3/uL 150-450 [facility] Potassium measurement (mass/ volume)Ordered By: Akhil Hanson on 05-24-2025 Potassium (Unsp spec) [Mass/Vol] 3.9 mmol/L 3.3-5.1 [facility] RBC Auto (Bld) [#/Vol]Ordere d By: Akhil Hanson on 05-24-2025 RBC (Bld) [#/Vol] 4.46 10*6/uL Low 4.6-6.2 [facility] Serum creatinine measurement (mass/volume)Ordered By: Akhil Hanson on 05-24-2025 Creatinine [Mass/Vol] 0.99 mg/dL 0.70-1.20 [facility] Serum glucose measurement (m ass/volume)Ordered By: Akhil Hanson on 05-24-2025 Glucose [Mass/Vol] 106 mg/dL High 70-99 [facility] Serum or plasma calcium jocelynn urement (mass/volume)Ordered By: Akhil Hanson on 05-24-2025 Calcium [Mass/Vol] 9.0 mg/dL 7.6-11.0 [facility] Serum or plasma urea nitroge n measurement (mass/volume)Ordered By: Akhil Hanson on 05-24-2025 Urea nitrogen [Mass/Vol] 17 mg/dL 4-19 [facility] Sodium levelOrdered By: Akhil Hanson on 05-24-2025 Sodium [Moles/Vol] 138 mmol/L 133-145 [facility] White blood cell (WBC) count Ordered By: Akhil Hanson on 05-24-2025 WBC (Bld) [#/Vol] 4.8 10*3/uL 4.4-11.0 [facility] Absolute lymphocyte countOrd ered By: Rachel Jules on 06-09-2023 Lymphocytes Auto (Unsp spec) [#/Vol] 1.50 10*3/uL 0.83-4.51 [facility] Basophil percentageOrdered B y: Rachel Jules on 06-09-2023 Basophils/100 WBC (Bld) 0.6 % 0-1 [facility] Bilirubin [Mass/Vol] 1.10 mg/dL 0.20-1.00 [facility] Comment on above: For patients on eltr ombopag therapy, use of Dimension [place] TBIL is not recommended. Chloride [Moles/Vol] 110 mmol/L 98-107 [facility] Cholesterol [Mass/Vol] 188 mg/dL <200 [facility] Comment on above: <200 mg/dL Desirable 200-240 mg/dL Borderline >240 mg/dL High Risk Eosinophils/100 WBC (Bld) 3.2 % 0-5 [facility] Glucose [Mass/Vol] 102 mg/dL 74-106 [facility] Comment on above: Fasting Glucose resu lt from 100 to 125 mg/dL suggests IMPAIRED HOMEOSTASIS per A.D.A. criteria. Neutrophils (Bld) [#/Vol] 4.8 10*3/uL 2.0-7.7 [facility] Neutrophils/100 WBC (Bld) 68.5 % 47-70 [facility] Potassium [Moles/Vol] 4.0 mmol/L 3.5-5.1 [facility] Protein [Mass/Vol] 6.8 g/dL 6.4-8.2 [facility] Sodium [Moles/Vol] 139 mmol/L 136-145 [facility] Triglyceride [Mass/Vol] 79 mg/dL <199 [facility] Comment on above: The drugs N-Acetylcy steine and Metamizole may falsely depress this assay.Serum Triglycerides Reference Interval Normal <150 mg/dL Borderline high 150 - 199 mg/dL High 200 - 499 mg/dL Very High > or = 500 mg/dL WBC (Bld) [#/Vol] 7.0 10*3/uL 4.4-11.0 [facility] Blood erythrocytes count (nu mber/volume)Ordered By: Rachel Jules on 06-09-2023 RBC (Bld) [#/Vol] 4.76 10*6/uL 4.6-6.2 [facility] Blood hemoglobin measurement (mass/volume)Ordered By: Rachel Jules on 06-09-2023 Hemoglobin (Bld) [Mass/Vol] 14.2 g/dL 13.0-16.5 [facility] Blood lymphocytes/100 leukoc ytesOrdered By: Rachel Jules on 06-09-2023 Lymphocytes/100 WBC (Bld) 21.5 % 19-41 [facility] Blood monocytes/100 leukocyt esOrdered By: Rachel Jules on 06-09-2023 Monocytes/100 WBC (Bld) 5.9 % 0-10 [facility] Blood platelet mean volumeOr dered By: Rachel Jules on 06-09-2023 Platelet mean volume (Bld) [Entitic vol] 9.5 fL 6.2-12.0 [facility] Determination of erythrocyte mean corpuscular volume (MCV)Ordered By: Rachel Jules on 06-09-2023 MCV (RBC) [Entitic vol] 93.7 fL 80-94 [facility] Hematocrit Auto (Bld) [Volum e fraction]Ordered By: Rachel Jules on 06-09-2023 Hematocrit (Bld) [Volume fraction] 44.6 % 40-54 [facility] - Chemistry and C hemistry - challengeOrdered By: Rachel Jules on 06-09-2023 ALP [Catalytic activity/Vol] 71 U/L 45-117 [facility] ALT [Catalytic activity/Vol] 17 U/L 16-61 [facility] CO2 [Moles/Vol] 24.0 mmol/L 21.0-32.0 [facility] Cobalamin (Vitamin B12) [Mass/Vol] 348 pg/mL 211-911 [facility] Globulin (S) [Mass/Vol] 3.4 g/dL 2.2-4.2 [facility] Magnesium [Mass/Vol] 2.2 mg/dL 1.6-2.6 [facility] Urea nitrogen/Creatinine [Mass ratio] 13.6 mg/mg 10-20 [facility] - Hematology and Cell countsOrdered By: Rachel Jules on 06-09-2023 Erythrocyte distribution width (RBC) [Entitic vol] 46.5 fL 35.1-43.9 [facility] Erythrocyte distribution width (RBC) [Ratio] 13.6 % 11.6-14.6 [facility] Immature granulocytes/100 WBC (Bld) 0.300 % 0.0-0.9 [facility] Comment on above: IG% - Immature Granu locytes (promyelocytes, myelocytes and metamyelocytes) > 1% indicates that a LEFT SHIFT is Present. MCH (RBC) [Entitic mass] 29.8 pg 27.0-32.0 [facility] Nucleated RBC/100 WBC (Bld) [Ratio] 0 % 0-5 [facility] MCHC Auto (RBC) [Mass/Vol]Or dered By: Rachel Jules on 06-09-2023 MCHC (RBC) [Mass/Vol] 31.8 g/dL 32-36 [facility] No Panel InformationOrdered By: Rachel Jules on 06-09-2023 Estimated GFR (MDRD) Amer 85 mL/min >60 [facility] Comment on above: GFR Calc Estimated GFR (MDRD) Non-Af Amer 70 mL/min >60 [facility] Comment on above: Non- GFR Calc Thyroid Stimulating Hormone (TSH) 2.48 uIU/mL 0.358-3.74 [facility] Vitamin D 25-Hydroxy 27.4 ng/mL [facility] Comment on above: Vitamin D 25(OH) Sta tus Range Deficiency <20 ng/mL (50nmol/L) Insufficiency 20 - 30 ng/mL (50 - 75 nmol/L) Sufficiency 30 - 100 ng/mL (75 - 250 nmol/L) Toxicity >100 ng/mL (>250 nmol/L) Platelets bldOrdered By: Constantino Jules on 06-09-2023 Platelets (Bld) [#/Vol] 237 10*3/uL 150-450 [facility] Serum or plasma albumin jocelynn urement (mass/volume)Ordered By: Rachel Jules on 06-09-2023 Albumin [Mass/Vol] 3.4 g/dL 3.2-5.0 [facility] Serum or plasma albumin/glob ulin mass ratioOrdered By: Rachel Jules on 06-09-2023 Albumin/Globulin [Mass ratio] 1.0 {ratio} 0.9-2.4 [facility] Serum or plasma calcium jocelynn urement (mass/volume)Ordered By: Rachel Jules on 06-09-2023 Calcium [Mass/Vol] 8.7 mg/dL 8.5-10.1 [facility] Serum or plasma cholesterol in HDL measurement (mass/volume)Ordered By: Rachel Jules on 06-09-2023 Cholesterol in HDL [Mass/Vol] 42 mg/dL >40 [facility] Comment on above: The drugs N-Acetylcy steine and Metamizole may falsely depress this assay. Reference Range HDL <40 mg/dL Low HDL Cholesterol HDL >or= 60 mg/dL High HDL Cholesterol Serum or plasma cholesterol in VLDL measurement (mass/volume)Ordered By: Rachel Jules on 06-09-2023 Cholesterol in VLDL [Mass/Vol] 16 mg/dL 5-40 [facility] Serum or plasma creatinine m easurement (mass/volume)Ordered By: Rachel Jules on 06-09-2023 Creatinine [Mass/Vol] 1.10 mg/dL 0.70-1.30 [facility] Comment on above: The validity of the calculated GFR & GFRAA in patients over 70 years has not been determined. Clinical correlation is essential. Serum or plasma ferritin david surement (mass/volume)Ordered By: Rachel Jules on 06-09-2023 Ferritin [Mass/Vol] 94 ng/mL 26-388 [facility] Serum or plasma low density lipoprotein (LDL) cholesterol measurement (mass/volume)Ordered By: Rachel Jules on 06-09-2023 Cholesterol in LDL [Mass/Vol] 130 mg/dL 0-130 [facility] Serum or plasma urea nitroge n measurement (mass/volume)Ordered By: Rachel Jules on 06-09-2023 Urea nitrogen [Mass/Vol] 15 mg/dL 7-18 [facility] Thin prep Papanicolaou smear with manual screeningOrdered By: Rachel Jules on 06-09-2023 Thin prep Papanicolaou smear with manual screening 9 U/L 15-37 [facility] Thin prep Papanicolaou smear with manual screening 5 5-15 [facility] Whole blood hemoglobin A1c/t otal hemoglobin ratio (mass fraction)Ordered By: Rachel Jules on 06-09-2023 HbA1c (Bld) [Mass fraction] 5.7 % 3.8-5.6 [facility] Comment on above: Normal < 5.7 % Predi abetic 5.7 - 6.4 % Diabetic >or= 6.5 % Please note range changes. Absolute lymphocyte counton 01-28-2022 Lymphocytes Auto (Unsp spec) [#/Vol] 1.71 10*3/uL 0.83-4.51 [facility] Work Phone: Basophil percentageon 2021 Basophils/100 WBC (Bld) 0.4 % 0-1 [facility] Work Phone: Bilirubin [Mass/Vol] 1.30 mg/dL 0.20-1.00 [facility] Work Phone: Comment on above: For patients on eltr ombopag therapy, use of Dimension [place] TBIL is not recommended. Chloride [Moles/Vol] 108 mmol/L 98-107 [facility] Work Phone: Cholesterol [Mass/Vol] 188 mg/dL <200 [facility] Work Phone: Comment on above: <200 mg/dL Desirable 200-240 mg/dL Borderline >240 mg/dL High Risk Eosinophils/100 WBC (Bld) 1.4 % 0-5 [facility] Work Phone: Glucose [Mass/Vol] 101 mg/dL 74-106 [facility] Work Phone: Comment on above: Fasting Glucose resu lt from 100 to 125 mg/dL suggests IMPAIRED HOMEOSTASIS per A.D.A. criteria. Neutrophils (Bld) [#/Vol] 4.9 10*3/uL 2.0-7.7 [facility] Work Phone: Neutrophils/100 WBC (Bld) 66.3 % 47-70 [facility] Work Phone: Potassium [Moles/Vol] 3.9 mmol/L 3.5-5.1 [facility] Work Phone: Protein [Mass/Vol] 6.7 g/dL 6.4-8.2 [facility] Work Phone: Sodium [Moles/Vol] 139 mmol/L 136-145 [facility] Work Phone: Triglyceride [Mass/Vol] 86 mg/dL [facility] Work Phone: Comment on above: The drugs N-Acetylcy steine and Metamizole may falsely depress this assay.Serum Triglycerides Reference Interval Normal <150 mg/dL Borderline high 150 - 199 mg/dL High 200 - 499 mg/dL Very High > or = 500 mg/dL WBC (Bld) [#/Vol] 7.4 10*3/uL 4.4-11.0 [facility] Work Phone: Blood erythrocytes count (nu mber/volume)on 01-28-2022 RBC (Bld) [#/Vol] 4.44 10*6/uL 4.6-6.2 [facility] Work Phone: Blood hemoglobin measurement (mass/volume)on 01-28-2022 Hemoglobin (Bld) [Mass/Vol] 13.4 g/dL 13.0-16.5 [facility] Work Phone: Blood lymphocytes/100 leukoc yteson 01-28-2022 Lymphocytes/100 WBC (Bld) 23.2 % 19-41 [facility] Work Phone: Blood monocytes/100 leukocyt eson 01-28-2022 Monocytes/100 WBC (Bld) 8.4 % 0-10 [facility] Work Phone: Blood platelet mean volumeon 01-28-2022 Platelet mean volume (Bld) [Entitic vol] 9.3 fL 6.2-12.0 [facility] Work Phone: Determination of erythrocyte mean corpuscular volume (MCV)on 01-28-2022 MCV (RBC) [Entitic vol] 90.1 fL 80-94 [facility] Work Phone: Hematocrit Auto (Bld) [Volum e fraction]on 01-28-2022 Hematocrit (Bld) [Volume fraction] 40.0 % 40-54 [facility] Work Phone: Laboratory - Chemistry and C hemistry - challengeon 01-28-2022 ALP [Catalytic activity/Vol] 78 U/L 45-117 [facility] Work Phone: ALT [Catalytic activity/Vol] 17 U/L 16-61 [facility] Work Phone: CO2 [Moles/Vol] 25.0 mmol/L 21.0-32.0 [facility] Work Phone: Globulin (S) [Mass/Vol] 3.4 g/dL 2.2-4.2 [facility] Work Phone: Urea nitrogen/Creatinine [Mass ratio] 19.5 mg/mg 10-20 [facility] Work Phone: Laboratory - Hematology and Cell countson 01-28-2022 Erythrocyte distribution width (RBC) [Entitic vol] 45.1 fL 35.1-43.9 [facility] Work Phone: Erythrocyte distribution width (RBC) [Ratio] 13.7 % 11.6-14.6 [facility] Work Phone: Immature granulocytes/100 WBC (Bld) 0.300 % 0.0-0.9 [facility] Work Phone: Comment on above: IG% - Immature Granu locytes (promyelocytes, myelocytes and metamyelocytes) > 1% indicates that a LEFT SHIFT is Present. MCH (RBC) [Entitic mass] 30.2 pg 27.0-32.0 [facility] Work Phone: Nucleated RBC/100 WBC (Bld) [Ratio] 0 % 0-5 [facility] Work Phone: MCHC Auto (RBC) [Mass/Vol]on 01-28-2022 MCHC (RBC) [Mass/Vol] 33.5 g/dL 32-36 [facility] Work Phone: No Panel Informationon 01-28 Estimated GFR (MDRD) Amer 98 mL/min >60 [facility] Work Phone: Comment on above: GFR Calc Estimated GFR (MDRD) Non-Af Amer 81 mL/min >60 [facility] Work Phone: Comment on above: Non- GFR Calc Prostate Specific Antigen Screen 2.00 ng/mL 0.00-4.00 [facility] Work Phone: Comment on above: This test was perfor med using the TPSA assay method for [facility]. Values obtained with differentassay methods cannot be used interchangably.When changing PSA assays in the course of monitoring apatient, additional sequential testing should be carriedout to confirm baseline values. Platelets bldon 01-28-2022 Platelets (Bld) [#/Vol] 217 10*3/uL 150-450 [facility] Work Phone: Serum or plasma albumin jocelynn urement (mass/volume)on 01-28-2022 Albumin [Mass/Vol] 3.3 g/dL 3.2-5.0 [facility] Work Phone: Serum or plasma albumin/glob ulin mass ratioon 01-28-2022 Albumin/Globulin [Mass ratio] 1.0 {ratio} 0.9-2.4 [facility] Work Phone: Serum or plasma calcium jocelynn urement (mass/volume)on 01-28-2022 Calcium [Mass/Vol] 8.4 mg/dL 8.5-10.1 [facility] Work Phone: Serum or plasma cholesterol in HDL measurement (mass/volume)on 01-28-2022 Cholesterol in HDL [Mass/Vol] 43 mg/dL [facility] Work Phone: Comment on above: The drugs N-Acetylcy steine and Metamizole may falsely depress this assay. Reference Range HDL <40 mg/dL Low HDL Cholesterol HDL >or= 60 mg/dL High HDL Cholesterol Serum or plasma cholesterol in VLDL measurement (mass/volume)on 01-28-2022 Cholesterol in VLDL [Mass/Vol] 17 mg/dL 5-40 [facility] Work Phone: Serum or plasma creatinine m easurement (mass/volume)on 01-28-2022 Creatinine [Mass/Vol] 0.97 mg/dL 0.70-1.30 [facility] Work Phone: Comment on above: The validity of the calculated GFR & GFRAA in patients over 70 years has not been determined. Clinical correlation is essential. Serum or plasma low density lipoprotein (LDL) cholesterol measurement (mass/volume)on 01-28-2022 Cholesterol in LDL [Mass/Vol] 128 mg/dL 0-130 [facility] Work Phone: Serum or plasma urea nitroge n measurement (mass/volume)on 01-28-2022 Urea nitrogen [Mass/Vol] 19 mg/dL 7-18 [facility] Work Phone: Thin prep Papanicolaou smear with manual screeningon 01-28-2022 Thin prep Papanicolaou smear with manual screening 10 U/L 15-37 [facility] Work Phone: Thin prep Papanicolaou smear with manual screening 6 5-15 [facility] Work Phone: Vital Signs Date Time Vital Sign Value Performing Clinician Faci lity 07-13-2025 14:19-0400 Body temperature 97.3 [degF] Libra Mckeon MD Work Phone: [facility] 07-13-2025 14:19-0400 Diastolic blood pressure 69 mm[Hg] Libra Mckeon MD Work Phone: [facility] 07-13-2025 14:19-0400 Heart rate 73 /min Libra Mckeon MD Work Phone: [facility] 07-13-2025 14:19-0400 Respiratory rate 16 /min Libra Mckeon MD Work Phone: [facility] 07-13-2025 14:19-0400 SaO2% (BldA) [Mass fraction] 94 % Libra Mckeon MD Work Phone: [facility] 07-13-2025 14:19-0400 Systolic blood pressure 120 mm[Hg] Libra Mckeon MD Work Phone: [facility] 07-12-2025 18:53-0400 Inhaled oxygen flow rate 2 L/min Libra Mckeon MD Work Phone: [facility] 07-12-2025 14:53-0400 Body height 184.99 cm Libra Mckeon MD Work Phone: [facility] 07-12-2025 14:53-0400 Body mass index (BMI) [Ratio] 33.3 kg/m2 Libra Mckeon MD Work Phone: [facility] 07-12-2025 14:53-0400 Body weight 114 kg Libra Mckeon MD Work Phone: [facility] Encounters Encounter Date Encounter Type Care Provider Facility Start: 08-22-2025 ambulatory Michael Nazario Facility :[facility] Start: 08-22-2025 End: 08-22-2025 ambulatory Michael Nazario Facility:[facility] Start: 08-20-2025 ambulatory Libra Mckeon Facility:[facility] Start: 08-14-2025 End: 08-14-2025 ambulatory Michael Nazario Facility:[facility] Start: 08-13-2025 ambulatory Rod Headley Facility: [facility] Start: 08-13-2025 ambulatory Rod Kayode Facility: [facility] Start: 08-08-2025 End: 08-08-2025 ambulatory Melissa Yahir [place] Facility:[facility] Start: 08-07-2025 End: 08-07-2025 ambulatory Libra Leeke Facility:[facility] Start: 08-01-2025 End: 08-02-2025 ambulatory Rod Gold Bar Facility:[facility] Start: 07-29-2025 ambulatory Libra Mckeon Facility:[facility] Start: 07-12-2025 End: 07-13-2025 ambulatory Partha Malik Facility:[facility] Start: 07-12-2025 End: 07-13-2025 Evaluation and management of inpatient Dr. Partha Malik MD -[facility] Work Phone: Start: 07-12-2025 End: 07-13-2025 observation encounter Libra Mckeon MD Work Phone: -[facility] Start: 07-02-2025 End: 07-02-2025 ambulatory [facility] Start: 07-02-2025 End: 07-02-[address] [facility] Start: 07-02-2025 End: 07-02-2025 ambulatory Libra Mckeon Facility:[facility] Start: 06-27-2025 End: 06-27-2025 ambulatory Libra Mckeon MD Work Phone: -[facility] Start: 06-27-2025 End: 06-27-2025 Patient encounter procedure Dr. Partha Malik MD -Cat Scan [facility] Work Phone: Start: 06-27-2025 End: 06-27-2025 ambulatory Libra Mckeon Facility:[facility] Start: 05-24-2025 End: 05-24-2025 ambulatory Libra Mckeon MD Work Phone: -Laboratory [facility] Start: 05-24-2025 End: 05-24-[address] Akhil Hanson MD -Laboratory [facility] Start: 05-24-2025 End: 05-24-2025 [facility] Facility:[facility] Start: 06-09-2023 End: 06-09-2023 ambulatory [facility] Work Phone: Start: 06-09-2023 End: 06-09-2023 Patient encounter procedure [facility] Start: 01-28-2022 End: 01-28-2022 Patient encounter procedure [facility] Procedures Date Procedure Procedure Detail Performing Clinician Start: 07-12-2025 Cystoscopy and transurethral resection of bladder tumor Libra Mckeon MD Work Phone: Start: 07-02-2025 Prostate specific an tigen measurement Libra Mckeon MD Work Phone: Comment on above: This test was perfor med using the [employer] tPSA method. Measured values of a patient sample can vary depending on the testing procedure used. PSA values determined on patient samples by different testing procedures cannot be used interchangeably. If there is a change in PSA assays while monitoring therapy, sequential testing should be performed to confirm baseline values. Start: 06-27-2025 Computed tomography of abdomen and pelvis with contrast Libra Mckeon MD Work Phone: Plan of Treatment Date Care Activity Detail Author Start: 07-13-2025 Measuring intake and output [facility] Start: 07-13-2025 Patient discharge [facility] Start: 07-12-2025 End: 07-13-20[facility] Start: 07-12-2025 Following clinical p athway protocol [facility] Start: 07-12-2025 Measuring intake and output [facility] Start: 07-12-2025 [facility] Start: 07-12-2025 Ambulation therapy management [facility] Start: 07-12-2025 Following clinical p athway protocol [facility] Start: 07-12-2025 Incentive spirometry [facility] Start: 07-12-2025 Irrigation of urinary bladder [facility] Start: 07-12-2025 Provision of activity privileges [facility] Start: 07-12-2025 Taking patient vital signs [facility] Start: 07-12-2025 Vital signs measurements [facility] Payers Date Payer Category Payer Medicare [id number] 2025 Medicare [id number] 2025 Self-pay [id number] 2004 Unknown [id number] Private Health Insurance [id number] Unknown [id number] 2.16.8 [id number] Unknown [id number] 2.16.8 40.1.978139.3.579.2.462 Unknown [id number] 2.16.8 40.1.619528.3.579.2.462 Unknown [id number] 2.16.8 40.1.607996.3.579.2.462 Unknown [id number] 2.16.8 40.1.016259.3.579.2.462 Unknown [id number] 2.16.8 40.1.006943.3.579.2.462 Unknown [id number] 2.16.8 40.1.718748.3.579.2.462 Unknown [id number] 2.16.8 40.1.522144.3.579.2.462 Unknown [id number] 2.16.8 40.1.522065.3.579.2.462 Unknown [id number] 2.16.8 40.1.227145.3.579.2.462 Unknown [id number] 2.16.8 40.1.328920.3.579.2.462 Unknown [id number] 2.16.8 40.1.366915.3.579.2.462 Unknown [id number] 2.16.8 40.1.275517.3.579.2.462 Unknown [id number] 2.16.8 40.1.992225.3.579.2.462 Unknown [id number] 2.16.8 40.1.205492.3.579.2.462 Social History Date Type Detail Facility Start: 11-25-2020 Tobacco smoking stat us WIIS Unknown if ever smoked [facility] Start: 1950 Sex Assigned At Male [facility] Start: 11-25-2020 End: 07-12-2025 Tobacco smoking status NHIS Never smoked tobacco (finding) [facility] Sex Male [facility] Goals Date Patient Goal Desired Activity /State Functional Status Date Assessment Result Facility 07-13-2025 Functional status Ambulates [facility] Work Phone: Mental Status Date Assessment Result Facility 07-13-2025 Cognitive function Level Of Consciousness Awake [facility] Work Phone: 07-12-2025 Cognitive function Voice/Name [facility] Work Phone: Clinical Notes 06-30-2025 to 08-22-2025 Note Date & Type Note Facility 08-22-2025 Note [facility] Medical Records Department [address] [place] [address] History Physical Exam 08/22/25 1045 MR#: [id number] Acct: [id number] Name: MAXIME LOPEZ Rep #: [id number] : 1950 74 From: Michael Nazario MD PCP: Dr. Libra Mckeon MD Status:REG SDC Location: [place] [address]-1 HPI - General General Date of Admission: 08/22/25 Date of Service: 08/22/25 Chief Complaint: Port placement HPI Narrative MAXIME LOPEZ, is a 74 M who presents for elective Mediport placement. Patient recently diagnosed with bladder cancer. His oncology team is recommending chemotherapy. Patient was recently seen to discuss Mediport placement. He presents today to have it placed [facility] Medical History Encounter for education Tinnitus Hearing loss Anxiety Bladder cancer Wears partial dentures Non-smoker Home Medications ???Medication ???Instructions ???Recorded ???Last Taken ???Type citalopram 20 mg tablet 30 mg PO DAILY 11/25/20 08/21/25 0 7:00 History mecobalamin (vitamin B12) 1,000 1,000 mcg PO QDAY 07/29/25 5 07:00 History mcg lozenges cholecalciferol (vitamin D3) 25 25 mcg PO DAILY 08/22/25 08/21/25 History mcg (1,000 unit) tablet (Vitamin D3) Allergy/AdvReac Type Severity Reaction Status Date / Time No Known Allergies Allergy Verified 08/22/25 09:47 Family History Brother Cancer skin Aunt Cancer Uncle Cancer Surgical History History of colonoscopy Hx of cystoscopy H/O Spinal surgery Hx of tonsillectomy Social History Smoking Status: Never smoker alcohol intake: never substance use type: does not use Vital Signs Vital Signs Vital Signs: 08/22/25 09:50 08/22/25 09:55 08/22/25 10:44 Temperature 97.5 F L 97.5 F L Temperature Source Temporal Pulse Rate 77 77 Respiratory Rate 16 16 Respiratory Pattern Normal Blood Pressure 139/79 H 139/79 H Blood Pressure Mean 99 Blood Pressure Source Monitor Blood Pressure Position Semi-Fowlers Blood Pressure Location Left Arm Pulse Ox 97 97 Oxygen Delivery Method Room Air Room Air Weight Weight: 262 lb Body Mass Index (BMI) 34.5 Physical Exam Const alert, oriented x3 and no apparent distress Assessment Plan Assessment/Plan (1) Bladder cancer: QUALIFIERS: Bladder location: anterior wall Qualified Code(s): C67.3 - 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 Discussed details of the planned procedure as well as risks and benefits. He wishes to proceed 08/22/25 1046 Cosigner Signature (if applicable): CC: Dr. Libra Mckeon MD; Dr. Michael Nazario MD Signed [facility] 07-13-2025 Consult note [facility] 07-13-2025 Discharge summary [facility] 07-13-2025 Progress note [facility] 07-13-2025 Progress note Note Date/Time July 13, 2025 6:22pm [facility] Medical Records Department [address] [place] [address] Progress Note 07/13/251034 MR#: [id number] Acct: [id number] Name: MAXIME LOPEZ Rep #:[id number] : 1950 74 From: Partha Malik MD PCP: Dr. Libra Mckeon MD Status:ADM IN O Location: TN3 JR256-8 Progress Note Patient doing well status post TURBT for an aggressive looking tumor irrigation of catheter overnight was stopped we will remove the catheter this morning if heis able to urinate okay can go home today without a catheter follow-up in the office in 2 weeks 07/13/25 1035 <Electronically signed by Partha Malik MD> Partha Malik MD Cosigner Signature (if applicable): CC: ~ Signed [facility] Work Phone: 1(125) 505-977110-04-2025 Discharge summary Author Partha Malik [facility] Note Date/Time July 13, 2025 6: 22pm [facility] Medical Records Department [address] [place] [address] Instructions for Home/Discharge Instructions 07/13/251030 MR#: [id number] Acct: [id number] Name: MAXIME LOPEZ Rep #:[id number] : 1950 74 From: Partha Malik MD PCP: Dr. Libra Mckeon MD Status:ADM IN O Discharge Instructions DC O2, CPAP, BIPAP needs Home O2 Discharge instructions: No Dressing / Incision Discharge Activity: Return to Normal Activity and May Not Drive (while taking narcotic pain medications.) Dressing / Incision Call your doctor if you observe: Fever of 101 or Higher Follow Up Care Please Follow Up With: Partha Malik MD When: Call [phone] for an appointment Test Results: Test results from this visit will be discussed in further detail at your follow- up appointment, if applicable. Discharge Plan Admission Admit Date/Time: 07/12/25 11:14 Primary Reason for Your Visit: resection of bladder tumor Attending Provider: Partha Malik Primary Care Provider: Libra Mckeon Discharge Orders/Prescriptions Prescriptions: No Action citalopram 20 MG tablet 30 mg PO DAILY Referrals / Follow Up: Libra Mckeon MD [Primary Care Provider, Family Practice] Partha Malik MD [Med Staff - Active Staff, Urology] 07/13/25 1031<Electronically signed by Partha Malik MD>Partha Malik MD CC: Dr. Libra Mckeon MD ~ Signed [facility] Work Phone: 1(252) 827-428210-03-2025 Consult note Author Dony Moy [facility] Note Date/Time July 13, 2025 6: 22pm [facility] Medical Records Department [address] [place] [address] Anesthesia Postop Eval II 07/12/25 1158 MR#: [id number] Acct: [id number] Name: MAXIME LOPEZ Rep #:[id number] : 1950 74 From: Dony Moy MD PCP: Dr. Libra Mckeon MD Status:REG SD C Y Race: C Location: [facility]- Anesthesia Postop Eval I Sum Postop Eval Completion status Anesthesia document: Postop Eval 1 completed: Yes Anesthesia Postop Eval I Summary Anesthesia Postop Eval I Summary: Anesthesia Postop Eval I: Assessment Summary Airway patent Yes 07/12/25 11:29 WAREHOUSE INVENTORY CLERK.CSIR Spontaneous unlabored Yes 07/12/25 11:29 WAREHOUSE INVENTORY CLERK.CSIR respirations Mental status Awake 07/12/25 11:29 WAREHOUSE INVENTORY CLERK.CSIR nausea No 07/12/25 11:29 WAREHOUSE INVENTORY CLERK.CSIR Vomiting No 07/12/25 11:29 WAREHOUSE INVENTORY CLERK.CSIR Anesthesia Postop Eval I: Fluid Summary Crystalloid volume administer 900 07/12/25 11:29 WAREHOUSE INVENTORY CLERK.CSIR (ml) Colloids volume administered ( ml) Blood Product volume administered (ml) Total IV fluid infused 900 07/12/25 11:29 WAREHOUSE INVENTORY CLERK.CSIR Anesthesia Postop Eval I: Summary Notes Anesthesia Complication No 07/12/25 11:29 WAREHOUSE INVENTORY CLERK.CSIR Anesthesia Complication Comment: Post-operative progress note Anesthesia: Postop Eval II Evaluation Mental status: Awake Pain Level: 1 nausea: No Vomiting: No 07/12/25 8237 <Electronically signed by Dony Moy MD > Date _ [facility] Date CC: ~ Signed [facility] Work Phone: 1(248) 697-651310-03-2025 Consult note Author [facility] Note Date/Time July 12, 2025 11 :29am [facility] Medical Records Department [address] [place] [address] Anesthesia Postop Eval I 07/12/25 1123 MR#: [id number] Acct: [id number] Name: MAXIME LOPEZ Rep #:[id number] : 1950 74 From: Aby Wagner CRNA PCP: Dr. Libra Mckeon MD Status:REG SD C Y Race: C Location: [place] [address] Anesthesia: Postop Eval I Current Vital Signs Temperature: 97.4 F Pulse Rate: 80 Blood Pressure: 123/91 Respiratory Rate: 18 Pulse Ox: 93 Oxygen Delivery Method: Room Air Assessment Airway patent: Yes Spontaneous unlabored respirations: Yes Mental status: Awake nausea: No Vomiting: No Anesthesia Complication: No Fluid Hydration Crystalloid volume administer (ml): 900 Total IV fluid infused: 900 Progress Note Anesthesia document: Postop Eval 1 completed: Yes 07/12/251128 <Electronically signed by Aby Saucedo a WAREHOUSE INVENTORY CLERK> Date _ Aby Sirca WAREHOUSE INVENTORY CLERK Cosigner Signature: Date CC: ~ Signed [facility] Work Phone: 1(452) 919-168310-03-2025 Consult note [facility] Medical Records Department [address] [place] [address] [place] [address] Anesthesia Postop Eval I 07/12/251122 MR#: [id number] Acct: [id number] Name: MAXIME LOPEZ Rep #:[id number] : 1950 74 From: Aby Wagner WAREHOUSE INVENTORY CLERK PCP: Dr. Libra Mckeon MD Status:REG SD C Y Race: C Location: [place] [address] Anesthesia: Postop Eval I Current Vital Signs Temperature: 97.4 F Pulse Rate: 80 Blood Pressure: 123/91 Respiratory Rate: 18 Pulse Ox: 93 Oxygen Delivery Method: Room Air Assessment Airway patent: Yes Spontaneous unlabored respirations: Yes Mental status: Awake nausea: No Vomiting: No Anesthesia Complication: No Fluid Hydration Crystalloid volume administer (ml): 900 Total IV fluid infused: 900 Progress Note Anesthesia document: Postop Eval 1 completed: Yes 07/12/25 112 a WAREHOUSE INVENTORY CLERK> Date _ Aby Sirca WAREHOUSE INVENTORY CLERK Cosigner Signature: Date CC: ~ Signed [facility]10-03-2025 Procedure note [facility] Medical Records Department [address] [place] [address] Operative Report 07/12/25 1114 MR#: [id number] Acct: [id number] Name: MAXIME LOPEZ Rep #:[id number] : 1950 74 From: Partha Malik MD PCP: Dr. Libra Mckeon MD Status:REG SD C Location: [place] [address] Operative Report (Standard) Operative Information Date of Procedure: 07/12/25 Pre-Operative Diagnosis: Large bladder tumor Post-Operative Diagnosis: The same Surgery/Procedure Performed: Transurethral section of the large bladder tumor car dumper operator: No Type of Anesthesia: General RN Documented Start/Stop Times: Operation Date: 07/12/25 10:30 Case Time Into Pre-Op 07/12/25 08:19 Out of Pre-Op 07/12/25 10:23 Anesthesia Start 07/12/25 10:29 Into Room 07/12/25 10:29 Procedure Start 07/12/25 10:48 Procedure End 07/12/25 11:10 Procedure Start Time: 10:48 Procedure Stop Time: 11:15 Select all DRAINS/GRAFTS/IMPLANTS that apply: Drains Drain details: Three-way catheter irrigation Estimated Blood Loss: 25 cc Specimen collected: Yes Description of specimen(s) removed: Bladder tumor Description of surgery: A 74-year-old male had gross hematuria CAT scan was done that demonstrated the thickened bladder cystoscopy was then done and demonstrated what appeared to be a tumor in the dome of the bladder up bythe bladder neck anterior so he was taken back to the operating room after smooth induction of anesthesia he was placed in dorsolithotomy position went in the bladder with a resectoscope the tumor tumor was coming down from the anterior part of the bladder looked very hard it also looked invasive started resecting resected deep into the muscle andappeared to get the entire tumor out but this appeared to be an invasive tumor very hard looking tumor very concerning for invasion into the muscle for my perspective after resecting this tumor then 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 Surgical Findings: Large tumor > 5cm in the dome of the bladder resected the tumor appeared to be hard and sessile and invasive Complications Complications: No Admit VTE Documentation VTE Present on Admission: No VTE Mechan Device Prophylaxis: SCD's VTE Pharm Prophylaxis ordered?: No 07/12/25 1117 Cosigner Signature (if applicable): CC: Dr. Libra Mckeon MD; Dr. Partha Malik MD~ Signed [facility]10-03-2025 Consult note Author Dony Moy [facility] Note Date/Time July 12, 2025 9: 00am [facility] Medical Records Department [address] [place] [address] Pre-Anesthesia Evaluation 07/12/25 0859 MR#: [id number] Acct: [id number] Name: MAXIME LOPEZ Rep #:[id number] : 1950 74 From: Dony Moy MD PCP: Dr. Libra Mckeon MD Status:REG SD C Y Race: C Location: [place] [address] ASA Classification* ASA Classification ASA Classification: 2 Assessment & Plan Anesthesia* Anesthesia Assessment Anesthesia Assessment: Discussed sedation and/or anesthesia options, risks, benefits, and alternatives with patient/parents/legal guardian/POA. Questions invited. The patient/parents/legal guardian/POA seems to understand and agrees to proceedwith anesthesia plan. Reviewed the physical assessment, medical history, allergy history and patient home medications list prior to surgery/procedure/anesthetic and documented any changes. Performed airway and anesthesia risk assessments. Anesthesia Type Anesthesia Type: General Anesthesia Focused Assessment* Airway Assessment Mouth opens: >3 cm Mallampati Score: II Labs Anesthesia Preop lab: CBC WBC, (4.4-11.0) 5.5 K/mm3 07/02/25, 15:12 RBC, (4.6-6.2) 4.57 M/mm3 L 07/02/25, 15:12 Hgb, (13.0-16.5) 14.3 g/dL 07/02/25, 15:12 Hct, (40-54) 43.3 % 07/02/25, 15:12 Plt Count, (150-450) 272 K/mm3 07/02/25, 15:12 CHEMISTRY Potassium, (3.3-5.1) 4.2 mmol/L 07/02/25, 15:12 Sodium, (133-145) 138 mmol/L 07/02/25, 15:12 Magnesium, (1.6-2.6) 2.2 mg/dL 06/09/23, 15:18 BUN, (4-19) 12 mg/dL 07/02/25, 15:12 Creatinine, (0.70-1.20) 0.95 mg/dL 07/02/25, 15:12 Glucose, (70-99) 105 mg/dL H 07/02/25, 15:12 TSH, (0.358-3.74) 2.48 uIU/mL 06/09/23, 15:18 COAG Pre-Assessment Diagnosis/Proposed Procedure Planned Operative Procedure(s): TRANSURETHERAL RESECTION OF BLADDER TUMOR Anesthesia History Anesthesia History - hospital nurse liaison: Anesthesia History - hospital nurse liaison Hx Hospitalization No 07/09/25 08:42 Any Problems With Anesthesia No 07/09/25 08:42 Cholinesterase deficiency No 07/09/25 08:42 You/Your Family Experience No 07/09/25 08:42 fever (hyperthermia) with Relationship Recent Exposure to Contagious Disease Does patient have nerve No 07/09/25 08:42 stimulator Patient instructed to have device shut off --Does patient have Pacemaker or ICD? When Was Last Pacemaker Check QUESTION #4 FULL TEXT: You/Your Family Experience fever (hyperthermia) with Anesthesia Last Oral Intake Last Oral intake: Last Oral Intake NPO since Meds taken in AM with sips of water? Meds patient instructed to take am of surgery PONV PONV - hospital nurse liaison: PONV - hospital nurse liaison Female No 07/09/25 08:42 HX of Motion Sickness No 07/09/25 08:42 HX of N/V After Surgery No 07/09/25 08:42 Non-Smoker Yes 07/09/25 08:42 Duration of Surgery greater Yes 07/09/25 08:42 than 60 minutes Number of Risk Factors 2 07/09/25 08:42 PONV Score Moderate Risk 07/09/25 08:42 Respiratory Assessment Respiratory Assessment - hospital nurse liaison: Respiratory Tract Infection Hx - hospital nurse liaison Hx Respiratory Tract Infection No 07/09/25 08:42 STOP Sleep Apnea STOP Sleep Apnea - hospital nurse liaison: STOP Sleep Apnea - hospital nurse liaison Hx Hypertension No 07/09/25 08:42 Hx Sleep Apnea No 07/09/25 08:42 CPAP BIPAP Do you snore loudly (louder No 07/09/25 08:42 than talking or can be heard Do you often feel tired/ No 07/09/25 08:42 fatigued/ sleepy during daytime? Has anyone observed you stop No 07/09/25 08:42 breathing during sleep? STOP Results Negative 07/09/25 08:42 QUESTION #5 FULL TEXT : Do you snore loudly (louder than talking or can be heard through closed doors)? 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 Specify any problems Hx of Preganancy in last 3 N/A 07/09/25 08:42 Months Nurse Filling Out Transfusion [id number] 07/09/25 08:42 & Questions: Date: 07/09/25 07/09/25 08:42 Time: 08:47 07/09/25 08:42 Patient unable to answer at this time (ie. confused, unrespo /Reproduction History /Reproductive History - hospital nurse liaison: /Reproductive Hx- hospital nurse liaison Hx Now Gestational Age (in weeks): EDC: Hx Hx Para Hx Section SAB Active Medications Active Medications: Current Medications Generic Name Dose Route Start Last Admin Trade Name Freq PRN Reason Stop Dose Admin Cefazolin Sodium 2 gm/ Sodium 110 mls @ 200 mls/hr 07/12/25 10:30 Chloride IV 07/12/25 11:02 INTRAOP ONE Mitomycin 40 mg/ N/A 40 mls @ 2,400 mls/hr 07/12/25 10:30 INSTILLAT 07/12/25 10:31 X1 ONE Lactated Ringer's 1,000 mls @ 15 mls/hr 07/12/25 08:30 07/12/25 08:41 IV 15 mls/hr .Q48H SHAUNA Administration PFSH Medical History Wears partial dentures Depression Non-smoker Home Medications ?Medication ?Instructions ?Recorded ?Last Taken ?Type citalopram 20 mg tablet 30 mg PO DAILY 11/25/20 Unkn own History Allergy/AdvReac Type Severity Reaction Status Date / Time No Known Allergies Allergy Verified 07/12/25 08:40 Surgical History H/O Spinal surgery Hx of tonsillectomy Social History Smoking Status: Never smoker Review of Systems (Anesthesia) ROS Narrative System reviewed and no additional complaints, except as documented. 07/12/25 0900 <Electronically signed by Dony Moy MD > Date _ Dony Moy MD Cosigner Signature: Date CC: ~ Signed [facility] Work Phone: 1(246) 513-669210-03-2025 Consult note [facility] Medical Records Department [address] [place] [address] Pre-Anesthesia Evaluation 07/12/25 0859 MR#: [id number] Acct: [id number] Name: MAXIME LOPEZ Rep #:[id number] : 1950 74 From: Dony Moy MD PCP: Dr. Libra Mckeon MD Status:REG SD C Y Race: C Location: [facility] ASA Classification* ASA Classification ASA Classification: 2 Assessment & Plan Anesthesia* Anesthesia Assessment Anesthesia Assessment: Discussed sedation and/or anesthesia options, risks, benefits, and alternatives with patient/parents/legal guardian/POA. Questions invited. The patient/parents/legal guardian/POA seems to understand and agrees to proceedwith anesthesia plan. Reviewed the physical assessment, medical history, allergy history and patient home medications list prior to surgery/procedure/anesthetic and documented any changes. Performed airway and anesthesia risk assessments. Anesthesia Type Anesthesia Type: General Anesthesia Focused Assessment* Airway Assessment Mouth opens: >3 cm Mallampati Score: II Labs Anesthesia Preop lab: CBC WBC, (4.4-11.0) 5.5 K/mm3 07/02/25, 15:12 RBC, (4.6-6.2) 4.57 M/mm3 L 07/02/25, 15:12 Hgb, (13.0-16.5) 14.3 g/dL 07/02/25, 15:12 Hct, (40-54) 43.3 % 07/02/25, 15:12 Plt Count, (150-450) 272 K/mm3 07/02/25, 15:12 CHEMISTRY Potassium, (3.3-5.1) 4.2 mmol/L 07/02/25, 15:12 Sodium, (133-145) 138 mmol/L 07/02/25, 15:12 Magnesium, (1.6-2.6) 2.2 mg/dL 06/09/23, 15:18 BUN, (4-19) 12 mg/dL 07/02/25, 15:12 Creatinine, (0.70-1.20) 0.95 mg/dL 07/02/25, 15:12 Glucose, (70-99) 105 mg/dL H 07/02/25, 15:12 TSH, (0.358-3.74) 2.48 uIU/mL 06/09/23, 15:18 COAG Pre-Assessment Diagnosis/Proposed Procedure Planned Operative Procedure(s): TRANSURETHERAL RESECTION OF BLADDER TUMOR Anesthesia History Anesthesia History - hospital nurse liaison: Anesthesia History - hospital nurse liaison Hx Hospitalization No 07/09/25 08:42 Any Problems With Anesthesia No 07/09/25 08:42 Cholinesterase deficiency No 07/09/25 08:42 You/Your Family Experience No 07/09/25 08:42 fever (hyperthermia) with Relationship Recent Exposure to Contagious Disease Does patient have nerve No 07/09/25 08:42 stimulator Patient instructed to have device shut off --Does patient have Pacemaker or ICD? When Was Last Pacemaker Check QUESTION #4 FULL TEXT: You/Your Family Experience fever (hyperthermia) with Anesthesia Last Oral Intake Last Oral intake: Last Oral Intake NPO since Meds taken in AM with sips of water? Meds patient instructed to take am of surgery PONV PONV - hospital nurse liaison: PONV - hospital nurse liaison Female No 07/09/25 08:42 HX of Motion Sickness No 07/09/25 08:42 HX of N/V After Surgery No 07/09/25 08:42 Non-Smoker Yes 07/09/25 08:42 Duration of Surgery greater Yes 07/09/25 08:42 than 60 minutes Number of Risk Factors 2 07/09/25 08:42 PONV Score Moderate Risk 07/09/25 08:42 Respiratory Assessment Respiratory Assessment - hospital nurse liaison: Respiratory Tract Infection Hx - hospital nurse liaison Hx Respiratory Tract Infection No 07/09/25 08:42 STOP Sleep Apnea STOP Sleep Apnea - hospital nurse liaison: STOP Sleep Apnea - hospital nurse liaison Hx Hypertension No 07/09/25 08:42 Hx Sleep Apnea No 07/09/25 08:42 CPAP BIPAP Do you snore loudly (louder No 07/09/25 08:42 than talking or can be heard Do you often feel tired/ No 07/09/25 08:42 fatigued/ sleepy during daytime? Has anyone observed you stop No 07/09/25 08:42 breathing during sleep? STOP Results Negative 07/09/25 08:42 QUESTION #5 FULL TEXT : Do you snore loudly (louder than talking or can be heard through closeddoors)? 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 Specify any problems Hx of Preganancy in last 3 N/A 07/09/25 08:42 Months Nurse Filling Out Transfusion [id number] 07/09/25 08:42 & Questions: Date: 07/09/25 07/09/25 08:42 Time: 08:47 07/09/25 08:42 Patient unable to answer at this time (ie. confused, unrespo /Reproduction History /Reproductive History - hospital nurse liaison: /Reproductive Hx- hospital nurse liaison Hx Now Gestational Age (in weeks): EDC: Hx Hx Para Hx Section SAB Active Medications Active Medications: Current Medications Generic Name Dose Route Start Last Admin Trade Name Freq PRN Reason Stop Dose Admin Cefazolin Sodium 2 gm/ Sodium 110 mls @ 200 mls/hr 07/12/25 10:30 Chloride IV 07/12/25 11:02 INTRAOP ONE Mitomycin 40 mg/ N/A 40 mls @ 2,400 mls/hr 07/12/25 10:30 INSTILLAT 07/12/25 10:31 X1 ONE Lactated Ringer's 1,000 mls @ 15 mls/hr 07/12/25 08:30 07/12/25 08:41 IV 15 mls/hr .Q48H SHAUNA Administration PFSH Medical History Wears partial dentures Depression Non-smoker Home Medications ?Medication ?Instructions ?Recorded ?Last Taken ?Type citalopram 20 mg tablet 30 mg PO DAILY 11/25/20 Unkn own History Allergy/AdvReac Type Severity Reaction Status Date / Time No Known Allergies Allergy Verified 07/12/25 08:40 Surgical History H/O Spinal surgery Hx of tonsillectomy Social History Smoking Status: Never smoker Review of Systems (Anesthesia) ROS Narrative System reviewed and no additional complaints, except as documented. 07/12/25 0900 > Date _ Dony Moy MD Cosigner Signature: Date CC: ~ Signed [facility]09-21-2025 Radiology Diagnostic study note [facility] Imaging Services [address] [place], [place] [address] CT Abd/Pelvis W/WO Contrast MR#: [id number] Acct: [id number] Name: MAXIME LOPEZ Rep #: [id number] : 1950 M 74 From: Danny Gallardo MD PCP: Dr. Libra Mckeon MD Status: REG CL I Study:CT Abd/Pelvis W/WO Contrast Date of Exa m: 06/27/25 Exam# [id number] Ordering Dr: Tom Malik MD PROCEDURE: CT ABD/PELVIS W/WO CONTRAST 06/27/2025 REASON FOR EXAM: GROSS HEMATURIA TECHNIQUE: Procedure Code: [id number] Modality: CT Procedure: CT ABD/PELVIS W/WO CONTRAST Coronal and Sagittal reconstruction series were provided. CONTRAST: Isovue 370 VOLUME: 100 ML One or more dose reduction techniques were used (e.g., Automated exposure control, adjustment of the mA and/or kV according to patient size, use of iterative reconstruction technique. RADIATION DOSE SUMMARY: CTDlvol: 33.94 mGy DLP: 4352.84 mGycm COMPARISON: CT abdomen and pelvis 11/25/2020. FINDINGS: Lung bases: Clear. Liver: Multiple simple kidney cysts with the largest in the left hepatic lobe measures 1.8 cm. Gallbladder: Unremarkable bladder. No hydronephrosis. Spleen: Unremarkable. Pancreas: Unremarkable. Adrenals: Unremarkable. Kidneys: Perinephric fat stranding. No hydronephrosis. A 3 mm nonobstructing stone at the midpole of the left kidney. No kidney masses. Bladder: Decompressed bladder. Bladder wall thickening and surrounding fat stranding consistent with acute cystitis. Reproductive Organs: Unremarkable. Bowel: No bowel wall thickening. No bowel obstruction. Appendix: Unremarkable. Lymph nodes: No lymphadenopathy. Vasculature: No aneurysm. Peritoneum / Retroperitoneum: No free air or free fluid. Bones: No acute bony abnormality. A Schmorl node at the upper endplate of T12. CT/CT Abd/Pelvis W/WO Contrast IMPRESSION: Perinephric fat stranding. No hydronephrosis. A 3 mm nonobstructing stone at the midpole of the left kidney. No kidney masses. Bladder wall thickening and surrounding fat stranding consistent with acute cystitis. Reading Location: [facility] CC: Dr. Libra Mckeon MD; Dr. Partha Malik MD ~ [employer] Sawyer: [facility]igned [facility] information available [facility] Work Phone: Reason for referral (narrative)No reason for referral information [facility] Work Phone: Advance Directives No Advanced Directives Records Found Advance Directive Response Recorded Date/ Time Living Will No November 25, 021 6:39pm Power of Mri Tech No November 25, 2020 6:39pm Advance Directive Response Recorded Date/ Time Do you have a Healthcare Power of Mri Tech? Yes July 12, 2025 2:53pm Name of Medical Power of Mri Tech NATI ANDRADE July 09, 2025 8:42am Chief Complaint and Reason for Visit Chief Complaint Admit Date Gross hematuria June 27, 2025 5:10pm Chief Complaint Admit Date Gross hematuria June 27, 2025 5:10pm [facility]yst[facility] July 12, 2025 11:14am Summary Purpose Family History No Family History Records Found Additional Source Comments Goals (unrecognized section and content) Goals may be documented in a n alternate sectionGoals may be documented in an alternate sectionGoals may be documented in an alternate sectionGoals may be documented in an alternate sectionGoals may be documented in an alternate section Care Teams (unrecognized sec tion and content) Team Status: Active Member Role Status Dates Dr. Fernanda Perez DO Family Provider Active Rachel Jules DO Primary Care Provider Active Team Status: Inactive Member Role Status Dates Rachel Jules , Primary Care Provider, Attending Provider Active Team Status: Active Member Role/Relationship Status Dates Dr. Fernanda Perez DO Family Provider Active Libra Mckeon MD Primary Care Provider Active Team Status: Inactive Member Role/Relationship Status Tierra Mckeon MD Primary Care Provider Active St art: May 24, 2025 End: May 24, 2025 Dr. Akhil Hanson MD Attending Provider Active Start: May 24, 2025 End: May 24, 2025 Team Status: Active Member Role/Relationship Status Tierra Mckeon MD Primary care physician Active Team Status: Inactive Member Role/Relationship Status Tierra Mckeon MD Primary care physician Active S tart: May 24, 2025 End: May 24, 2025 Dr. Akhil Hanson MD Attending physician Active Start: May 24, 2025 End: May 24, 2025 Team Status: Inactive Member Role/Relationship Status Tierra Mckeon MD Primary care physician Active S tart: June 27, 2025 End: June 27, 2025 Dr. Partha Malik MD Attending physician Active Start: June 27, 2025 End: June 27, 2025 Dr. Partha Malik MD Referring Provider Active Start: June 27, 2025 End: June 27, 2025 Team Status: Inactive Member Role/Relationship Status Tierra Mckeon MD Primary care physician Active S tart: July 02, 2025 End: July 02, 2025 Libra Mckeon MD Attending physician Active Star t: July 02, 2025 End: July 02, 2025 Team Status: Inactive Member Role/Relationship Status Tierra Mckeon MD Primary care physician Active S tart: July 12, 2025 End: July 13, 2025 Dr. Partha Malik MD Admitting physician Active Start: July 12, 2025 End: July 13, 2025 Dr. Partha Malik MD Attending physician Active Start: July 12, 2025 End: July 13, 2025 Dr. Partha Malik MD Referring Provider Active Start: July 12, 2025 End: July 13, 2025 (unrecognized sect ion and content) No Status Records Found INFORMATION SOURCE (unrecogn ized section and content) DATE CREATED AUTHOR 08/23/2025 [facility] FOR RECORDS PERTAINING TO PATIENTS WHO ARE [...] BE BASED ON THE PRIMARY CLINICAL RECORDS. [employer] provides no warranty or guarantee of the accuracy or completeness of information in this document.
[2025-09-26 22:06] LABS: Troponin T High Sens 4 HR 30 ng/L (<=22)
[2025-09-27] VITALS (9 sets, daily range): BP systolic 124–147; BP diastolic 70–90; PULSE 71–87; RESP 16–20; TEMP 36.3–37.3; O2SAT 95–96
[2025-09-27 05:19] LABS: Hematocrit 33.3 % (40-54); Hemoglobin 11.4 g/dL (13.0-16.5); Immature Granulocytes Count 0.010 X10^3/uL (0.0-0.0); Mean Corp Hgb Conc 34.2 g/dL (32-36); Mean Corpuscular Volume 92.8 fL (80-94); Mean Platelet Vol. 8.6 fl (6.2-12.0); NRBC Flagged by Analyzer 0 % (0-5); POSITIVE DIFFERENTIAL YES; Platelet Count 131 K/mm3 (150-450); RBC Distribution Width CV 14.7 % (11.6-14.6); RBC Distribution Width SD 48.4 fl (35.1-43.9); Red Blood Count 3.59 M/mm3 (4.6-6.2); White Blood Count 2.2 K/mm3 (4.4-11.0)
[2025-09-27 05:42] LABS: Differential Indicated SCAN CRITERIA MET
[2025-09-27 05:45] LABS: Anion Gap 10 (5-15); BUN 16 mg/dL (4-19); BUN/Creat Ratio 17.1 RATIO (10-20); Calcium,Total 9.1 mg/dL (7.6-11.0); Carbon Dioxide 24.1 mmol/L (21.0-32.0); Chloride 101 mmol/L (98-108); Estimated Creatinine Clearance 94.47 ml/min (50-250); Glucose 143 mg/dL (70-99); Potassium 4.3 mmol/L (3.3-5.1)
--- NOTE | 2025-09-27 07:40 | PCM.PN.HOSP ---
Subjective Subjective Patient is a 74-year-old gentleman currently undergoing chemotherapy for bladder CA presented to the emergency department with progressive shortness of breath.CT of the chest was negative for PE however did demonstrate mild bilateral bronchial wall thickening suggestive of infectious/inflammatory small airway disease. Admitted to regular nursing floor for further management Objective Data Objective Data Vital Signs: Vital Signs Temp Pulse Resp BP Pulse Ox O2 Del Method O2 Flow Rate 98 F 73 19 H 138/90 H 95 Nasal Cannula 3 09/27/25 05:41 09/27/25 05:41 09/27/25 05:41 09/27/25 05:41 09/27/25 05:41 09/27/25 05:41 09/27/25 05:41 Oxygen Flow Rate (L/min) 3 Oxygen Delivery Method Nasal Cannula Weight: 114.6 kg Body Mass Index (BMI) 33.3 Intake & Output: Intake and Output for Last 24 Hours 09/25/25 09/26/25 09/27/25 23:59 23:59 23:59 Intake Total 300.00 / 300.00 200 / 200 Output Total 625 / 625 Balance 300.00 / 300.00 -425 / -425 Lab / Micro Data 09/27/25 05:15 09/27/25 05:15 Labs: Laboratory Results - last 24 hr 09/26/25 17:10: WBC 3.2 L, RBC 3.84 L, Hgb 11.9 L, Hct 36.1 L, MCV 94.0, MCH 31.0, MCHC 33.0, RDW Std Deviation 48.3 H, RDW Coeff of Jono 14.7 H, Plt Count 126 L, MPV 8.4, Immature Gran % (Auto) 0.000, Neut % (Auto) 87.9 H, Lymph % (Auto) 5.3 L, [place] % (Auto) 5.9, Eos % (Auto) 0.6, Baso % (Auto) 0.3, Absolute Neuts (auto) 2.8, Absolute Lymphs (auto) 0.17 L, Nucleated RBC % 0, PT 14.5, INR 1.1, APTT 22.2 L, Sodium 136, Potassium 3.8, Chloride 100, Carbon Dioxide 23.6, Anion Gap 12, BUN 15, Creatinine 1.08, Estim Creat Clear Calc 79.24, Est GFR (MDRD) Non-Af 72, BUN/Creatinine Ratio 13.4, Glucose 140 H, Lactic Acid 1.4, Calcium 9.1, Total Bilirubin 0.95, AST 18, ALT 12, Alkaline Phosphatase 73, Troponin T High Sens 23 H, NT pro BNP II 375, Total Protein 6.7, Albumin 4.1, Globulin 2.6, Albumin/Globulin Ratio 1.6 09/26/25 18:10: Urine Color Elaine, Urine Clarity Cloudy, Urine pH 5.0, Ur Specific [place] 1.025, Urine Protein 500 H, Urine Glucose (UA) 50 H, Urine Ketones 5 H, Urine Occult Blood 250 H, Urine Nitrite Positive H, Urine Bilirubin 1 H, Urine Urobilinogen Normal, Ur Leukocyte Esterase 100 H, Urine RBC > 100 SEEN, Urine WBC >100 SEEN, Ur Squamous Epith Cells 0 SEEN, Urine Bacteria 1+, Urine Mucus 2+ 09/26/25 19:23: Troponin T Hi Sens 2 Hr 33 H 09/26/25 21:25: Troponin T Hi Sens 4Hr 30 H 09/27/25 05:15: WBC 2.2 L, RBC 3.59 L, Hgb 11.4 L, Hct 33.3 L, MCV 92.8, MCH 31.8, MCHC 34.2, RDW Std Deviation 48.4 H, RDW Coeff of Jono 14.7 H, Plt Count 131 L, MPV 8.6, Immature Gran % (Auto) 0.500, Neut % (Auto) 85.9 H, Lymph % (Auto) 10.0 L, [place] % (Auto) 3.6, Eos % (Auto) 0.0, Baso % (Auto) 0.0, Absolute Neuts (auto) 1.9 L, Absolute Lymphs (auto) 0.22 L, Nucleated RBC % 0, Sodium 135, Potassium 4.3, Chloride 101, Carbon Dioxide 24.1, Anion Gap 10, BUN 16, Creatinine 0.91, Estim Creat Clear Calc 94.47, Est GFR (MDRD) Non-Af 89, BUN/Creatinine Ratio 17.1, Glucose 143 H, Calcium 9.1 Micro: Microbiology 09/26/25 17:25 Mucosa - Nose SARS-CoV-2, Influenza & RSV (PCR) - Final Radiography Diagnostic Testing: Radiology Impression Chest X-Ray 09/26/25 16:58 IMPRESSION: No evidence of acute pulmonary disease. Reading Location: [facility] Chest CTA 09/26/25 19:08 IMPRESSION: 1. Limited evaluation of the mid and lower lung subsegmental pulmonary arteries (due to respiratory motion). No evidence of PE in the remaining pulmonary arteries. 2. Mild bilateral bronchial wall thickening, suggesting infectious or inflammatory small airways disease. 3. Coronary artery calcification is present. Reading Location: [facility] Physical Exam Narrative GENERAL: cooperative HEENT: Atraumatic; normocephalic EYES; Anicteric, Normal Conjunctiva NECK; supple, normal thyroid, RESPIRATORY: Diminished to auscultation CARDIOVASCULAR: Regular S1 S2, GI: soft, normoactive bowel sounds, : No Renal angle tenderness; EXTREMITIES: No edema, no clubbing, MUSCULOSKELETAL: no muscle wasting NEURO: Awake; no lateralizing signs. SKIN: No Rash PSYCH; Flat affect Assessment & Plan Assessment/Plan (1) UTI (urinary tract infection): (2) Acute bronchitis: (3) Hypoxia: PLAN: Plan Patient is a 74-year-old gentleman currently undergoing chemotherapy for bladder CA presented to the emergency department with progressive shortness of breath.CT of the chest was negative for PE however did demonstrate mild bilateral bronchial wall thickening suggestive of infectious/inflammatory small airway disease. Admitted to regular nursing floor for further management 1. Acute hypoxic respiratory insufficiency ? Secondary to acute bronchitis with reactive airway. Admitted to regular nursing floor management bronchodilator treatment prednisone as well as azithromycin. 2. Acute cystitis with hematuria ? Patient started on ceftriaxone urine culture sent 3. Bladder CA ? Currently undergoing chemo as outpatient plan is for patient to resume care with primary oncologist following discharge 4. Depression with anxiety Patient is on escitalopram as well as lorazepam 11. Anemia Secondary to acute blood loss anemia from hematuria will continue with monitoring H&H with plans to transfuse if patient is deemed to be symptomatic or hemoglobin falls below 7 6. Mild thrombocytopenia ? Monitoring with daily CBCs 7. Leukopenia ? Related to patient's chemo 8. Pancytopenia ? Chemo related management as discussed above 9. DVT: SCDs Charges/Coding Visit Charges Inpatient E&M: 93723 Subs Hosp L2
--- NOTE | 2025-09-27 09:46 | ECHOCS_ITS ---
Reason For Study Reason For Study: DYSPNEA/SOB Procedure This was a 2D Doppler, Color Flow transthoracic echocardiogram. The study was technically difficult. Contrast injection was performed. Exam performed portable in patient room. Left Ventricle Normal size and thickness. The left ventricular ejection fraction is 55 %. Normal diastology for age. No regional wall motion abnormalities noted. Right Ventricle Normal right ventricle. Normal systolic function. Atria The left and right atria are normal. Mitral Valve The mitral valve is structurally normal. No prolapse or stenosis seen. Trivial mitral valve insufficiency. Tricuspid Valve Normal tricuspid valve. Unable to estimate RV systolic pressure due to insufficient tricuspid regurgitant envelope. Aortic Valve Trisinus/trileaflet aortic valve. Normal aortic valve. There is no aortic stenosis. Pulmonic Valve The pulmonic valve is not well visualized. No eccentric pulmonic valve insufficiency. Great Vessels Inferior vena cava collapse with sniff. Pericardium/Pleural No pericardial effusion. Medication Diluted definity 2.5ml given slow IV push to enhance endocardial definition. MMode/2D Measurements & Calculations LVIDd: 4.7 cm IVSd: 0.60 cm LAV(MOD- bp): 52.5 ml LVIDs: 3.3 cm LVPWd: 1.1 cm RVDd: 3.9 cm FS: 31.0 % LAV(MOD- bp) Indexed: 22.1 ml/m2 LAV(MOD- sp2): 50.1 ml LAV(MOD- sp4): 50.8 ml LVAd ap4: 33.1 cm2 LVAd ap2: 32.1 cm2 EDV(MOD- bp): 105.3 ml LVLd ap4: 8.2 cm LVLd ap2: 8.8 cm ESV(MOD- bp): 45.6 ml EDV(MOD-sp4): 107.9 ml EDV(MOD-sp2): 97.6 ml EF(MOD- bp): 56.7 % EDV(sp4-el): 113.4 ml EDV(sp2-el): 99.4 ml LVAs ap4: 19.8 cm2 LVAs ap2: 20.3 cm2 LVLs ap4: 7.3 cm LVLs ap2: 7.6 cm ESV(MOD-sp4): 44.8 ml ESV(MOD-sp2): 44.7 ml ESV(sp4-el): 45.7 ml ESV(sp2-el): 46.0 ml EF(MOD-sp4): 58.5 % EF(MOD-sp2): 54.2 % EF(sp4-el): 59.7 % SV(MOD-sp4): 63.1 ml SV(MOD-sp2): 52.9 ml SV(sp4- el): 67.7 ml SI(MOD-sp4): 26.6 ml/m2 SI(MOD-sp2): 22.3 ml/m2 LA dimension(2D): 3.7 cm LA A4 area: 17.3 cm2 RA A4 area: 15.4 cm2 TAPSE: 2.3 cm Time Measurements MV dec time: 0.36 sec Doppler Measurements & Calculations MV E max stewart: 56.7 cm/sec Lat Peak E' Stewart: 9.4 cm/sec Med Peak E' Stewart: 7.2 cm/sec MV A max stewart: 87.9 cm/sec E/E' lat: 6.1 E/E' med: 7.8 MV E/A: 0.65 MV dec slope: 157.9 cm/sec2 Ao V2 max: 133.9 cm/sec LV V1 max: 99.2 cm/sec Ao max P.2 mmHg LV V1 max P.9 mmHg Ao V2 mean: 93.5 cm/sec LV V1 mean P.9 mmHg Ao mean P.0 mmHg LV V1 mean: 65.0 cm/sec Ao V2 VTI: 28.0 cm LV V1 VTI: 19.3 cm AV (velocity ratio): 0.69 PA V2 max: 94.5 cm/sec ECHO/Echo Complete W/ Contrast Interpretation Summary Normal diastology for age. Normal systolic function. The left and right atria are normal. Trivial mitral valve insufficiency. Unable to estimate RV systolic pressure due to insufficient tricuspid regurgita nt envelope. Normal aortic valve. Inferior vena cava collapse with sniff. No pericardial effusion. Ordering Physician: Cecil Negro Referring Physician: Libra Casanova Performed By: Gianni Rothman RDCS
--- NOTE | 2025-09-27 12:30 | CASEMGMT ---
RN?CM?ASSESSMENT ? RN?CM?to room to meet with patient for initial transition planning/care coordination?assessment.?RN?CM?introduced self and role at [facility].? Pt voices understanding and consents to?assessment?at this time.? Pt resting in bed in no distress at this time.? Pt is A/O at this time and answers all questions appropriately.?? Care providers, pharmacy, and demographics verified/updated at this time. ? Strata: 2 PCP: Dr Casanova Specialists: Dr Headley-radiation oncology. Dr Jaramillo-oncology, Dr Malik-urology. Preferred Pharmacy: [facility] Retail Insurance: [employer] Prescription Benefit:?Yes Living Will/HPOA:?Pt thinks he has completed these, but he is not sure. He states he thinks Hien is his HCPOA & he thinks he may have a copy of the document @ his home or Hien may have a copy. He states will check w/her later this evening when he talks w/her. He states she will not be coming in to see him today, but if they can find a copy of it once he returns home, he is aware he can bring it to [facility] to have scanned in. He was also made aware, if he is unable to locate the documents, if he desires, he can meet w/SW while admitted, if she is available, or as an OP. He voices appreciation. LNOK: Friend, Hien is only contact listed. Pt has one living brother, Sophie Lopez. He does not wish him to be added to contact list at this time. He states Hien should know how to reach him, if needed. Living Arrangements: Lives alone in one-story home w/basement w/4-5 steps to enter w/railing on both sides. He denies difficulty w/stairs. Independent w/ADL's and IADL's. Transportation:?Pt states drives self and states no transportation concerns at this time.?He states his car is @ [facility] and he plans to drive himself home @ discharge. DME: ? Denies using any DME and denies needs.?He does not have a pulse ox. RN CM recommended he purchase one and made aware of locations that sell these. No home O2. Discussed possible need of O2 @ discharge and questions answered. If he qualifies for home O2, he has no preference of DME co, made aware [employer] is affiliated /[facility] and states to use [employer]. HHC/SNF: No hx of either. ? Pt wishes to return home and states has no concerns with going home at time of discharge. Follow for home oxygen needs and any further discharge planning/needs.? Pt voices no further concerns/needs at this time.? ? PLAN:??Home Follow for possible home O2 @ discharge. ? Nick BSN?RN?CM ?
[2025-09-28] MEDS: Azithromycin 500 MG in 0.9% Normal Saline (250mL Bag) 250 ML 250 MG IV (00:02)
[2025-09-28 05:24] VITALS: BP 135/96; PULSE 75; RESP 18; TEMP 36.6; O2SAT 95
[2025-09-28 06:05] LABS: Hematocrit 33.0 % (40-54); Hemoglobin 10.9 g/dL (13.0-16.5); Immature Granulocytes Count 0.010 X10^3/uL (0.0-0.0); Mean Corp Hgb Conc 33.0 g/dL (32-36); Mean Corpuscular Volume 94.0 fL (80-94); Mean Platelet Vol. 8.6 fl (6.2-12.0); NRBC Flagged by Analyzer 0 % (0-5); Platelet Count 151 K/mm3 (150-450); RBC Distribution Width CV 15.0 % (11.6-14.6); RBC Distribution Width SD 48.6 fl (35.1-43.9); Red Blood Count 3.51 M/mm3 (4.6-6.2); White Blood Count 3.3 K/mm3 (4.4-11.0)
[2025-09-28 06:23] LABS: Magnesium 2.1 mg/dL (1.5-2.2)
[2025-09-28 07:00] VITALS: PULSE 88; RESP 20
--- NOTE | 2025-09-28 07:31 | PN.HOSP_ITS ---
Subjective Subjective Patient urine culture no significant growth of gram-negative rods.. Patient breathing significantly improved. Plans for patient to be assessed for discharge after home O2 oxygen assessment Objective Data Objective Data Vital Signs: Vital Signs Temp Pulse Resp BP Pulse Ox O2 Del Method O2 Flow Rate 98 F 75 18 135/96 H 95 Nasal Cannula 2 09/28/25 05:24 09/28/25 05:24 09/28/25 05:24 09/28/25 05:24 09/28/25 05:24 09/28/25 05:25 09/28/25 05:25 Oxygen Flow Rate (L/min) 2 Oxygen Delivery Method Nasal Cannula Weight: 114.6 kg Body Mass Index (BMI) 33.3 Intake & Output: Intake and Output for Last 24 Hours 09/26/25 09/27/25 09/28/25 23:59 23:59 23:59 Intake Total 300.00 / 300.00 1000 / 1250 775 / 775 Output Total 1025 / 1325 300 / 300 Balance 300.00 / 300.00 -25 / -75 475 / 475 Lab / Micro Data 09/28/25 05:45 09/27/25 05:15 Labs: Laboratory Results - last 24 hr 09/26/25 18:10: Urine Color Elaine, Urine Clarity Cloudy, Urine pH 5.0, Ur Specific [place] 1.025, Urine Protein 500 H, Urine Glucose (UA) 50 H, Urine Ketones 5 H, Urine Occult Blood 250 H, Urine Nitrite Positive H, Urine Bilirubin 1 H, Urine Urobilinogen Normal, Ur Leukocyte Esterase 100 H, Urine RBC > 100 SEEN, Urine WBC >100 SEEN, Ur Squamous Epith Cells 0 SEEN, Urine Bacteria 1+, Urine Mucus 2+ 09/28/25 05:45: WBC 3.3 L, RBC 3.51 L, Hgb 10.9 L, Hct 33.0 L, MCV 94.0, MCH 31.1, MCHC 33.0, RDW Std Deviation 48.6 H, RDW Coeff of Jono 15.0 H, Plt Count 151, MPV 8.6, Immature Gran % (Auto) 0.300, Neut % (Auto) 68.1, Lymph % (Auto) 25.0, [place] % (Auto) 5.4, Eos % (Auto) 1.2, Baso % (Auto) 0.0, Absolute Neuts (auto) 2.3, Absolute Lymphs (auto) 0.83, Nucleated RBC % 0, Phosphorus 4.3, Magnesium 2.1 Micro: Microbiology 09/26/25 18:10 Urine, Clean Catch Urine Culture - Preliminary Gram negative christopher 09/26/25 17:25 Sputum, Expectorated/Coughed Gram Stain - Final 09/26/25 17:25 Sputum, Expectorated/Coughed Respiratory Culture - Preliminary Appears to be normal respiratory gio. Further studies to follow. 09/26/25 17:25 Mucosa - Nose SARS-CoV-2, Influenza & RSV (PCR) - Final Radiography Diagnostic Testing: Radiology Impression Echocardiogram 09/27/25 09:46 Interpretation Summary Normal diastology for age. Normal systolic function. The left and right atria are normal. Trivial mitral valve insufficiency. Unable to estimate RV systolic pressure due to insufficient tricuspid regurgitant envelope. Normal aortic valve. Inferior vena cava collapse with sniff. No pericardial effusion. Ordering Physician: Cecil Negro Referring Physician: Libra Casanova Performed By: Gianni Rothman RDCS Physical Exam Narrative GENERAL: cooperative HEENT: Atraumatic; normocephalic EYES; Anicteric, Normal Conjunctiva NECK; supple, normal thyroid, RESPIRATORY: Diminished to auscultation CARDIOVASCULAR: Regular S1 S2, GI: soft, normoactive bowel sounds, : No Renal angle tenderness; EXTREMITIES: No edema, no clubbing, MUSCULOSKELETAL: no muscle wasting NEURO: Awake; no lateralizing signs. SKIN: No Rash PSYCH; Flat affect Assessment & Plan Assessment/Plan (1) UTI (urinary tract infection): (2) Acute bronchitis: (3) Hypoxia: PLAN: Plan Patient is a 74-year-old gentleman currently undergoing chemotherapy for bladder CA presented to the emergency department with progressive shortness of breath.CT of the chest was negative for PE however did demonstrate mild bilateral bronchial wall thickening suggestive of infectious/inflammatory small airway disease. Admitted to regular nursing floor for further management 1. Acute hypoxic respiratory insufficiency ? Secondary to acute bronchitis with reactive airway. Admitted to regular nursing floor management bronchodilator treatment prednisone as well as azithromycin. 2. Acute cystitis with hematuria ? Patient started on ceftriaxone urine culture sent ? 09/28/2025; urine cultures came back with nonsignificant growth of gram- negative rods. 3. Bladder CA ? Currently undergoing chemo as outpatient plan is for patient to resume care with primary oncologist following discharge 4. Depression with anxiety Patient is on escitalopram as well as lorazepam 11. Anemia Secondary to acute blood loss anemia from hematuria will continue with monitoring H&H with plans to transfuse if patient is deemed to be symptomatic or hemoglobin falls below 7 6. Mild thrombocytopenia ? Monitoring with daily CBCs 7. Leukopenia ? Related to patient's chemo 8. Pancytopenia ? Chemo related management as discussed above 9. DVT: SCDs
[2025-09-28 08:12] VITALS: BP 139/84; PULSE 74; RESP 16; TEMP 36.2; O2SAT 93
--- NOTE | 2025-09-28 08:51 | PCM.DC.SUM ---
Providers Date of Admission: 09/26/25 Primary Care Physician: Libra Casanova MD Reason For Visit: BRONCITIS AND UTI Diagnosis Discharge Diagnosis (1) UTI (urinary tract infection): Status: Acute Code(s): N39.0 - Urinary tract infection, site not specified (2) Acute bronchitis: Status: Acute Code(s): J20.9 - Acute bronchitis, unspecified (3) Hypoxia: Status: Acute Code(s): R09.02 - Hypoxemia Plan Patient is a 74-year-old gentleman currently undergoing chemotherapy for bladder CA presented to the emergency department with progressive shortness of breath.CT of the chest was negative for PE however did demonstrate mild bilateral bronchial wall thickening suggestive of infectious/inflammatory small airway disease. Admitted to regular nursing floor for further management 1. Acute hypoxic respiratory insufficiency ? Secondary to acute bronchitis with reactive airway. Admitted to regular nursing floor management bronchodilator treatment prednisone as well as azithromycin. 2. Acute cystitis with hematuria ? Patient started on ceftriaxone urine culture sent ? 09/28/2025; urine cultures came back with nonsignificant growth of gram-negative rods. 3. Bladder CA ? Currently undergoing chemo as outpatient plan is for patient to resume care with primary oncologist following discharge 4. Depression with anxiety Patient is on escitalopram as well as lorazepam 11. Anemia Secondary to acute blood loss anemia from hematuria will continue with monitoring H&H with plans to transfuse if patient is deemed to be symptomatic or hemoglobin falls below 7 6. Mild thrombocytopenia ? Monitoring with daily CBCs 7. Leukopenia ? Related to patient's chemo 8. Pancytopenia ? Chemo related management as discussed above 9. DVT: SCDs Medications at Discharge Home Medications citalopram 20 mg tablet 30 mg PO DAILY 11/25/20 mecobalamin (vitamin B12) 1,000 mcg lozenges 1,000 mcg PO QDAY 07/29/25 cholecalciferol (vitamin D3) 25 mcg (1,000 unit) tablet (Vitamin D3) 25 mcg PO DAILY 08/22/25 lorazepam 1 mg tablet 1 mg PO Q12H PRN anxiety 09/26/25 albuterol sulfate 90 mcg/actuation aerosol inhaler 2 puff inhalation Q6H PRN shortness of breath or wheezing #8.5 grams 09/28/25 cefdinir 300 mg capsule 300 mg PO BID #10 caps 09/28/25 guaifenesin 600 mg tablet, extended release 12 hr (Mucinex) 1,200 mg (2 x 600 mg) PO BID #30 tabs 09/28/25 prednisone 20 mg tablet 40 mg (2 x 20 mg) PO BREAKFAST #10 tabs 09/28/25 Hospital Course Summary of Care Provided Minutes Spent on Discharge: 35 Physical Exam Narrative GENERAL: cooperative HEENT: Atraumatic; normocephalic EYES; Anicteric, Normal Conjunctiva NECK; supple, normal thyroid, RESPIRATORY: Diminished to auscultation CARDIOVASCULAR: Regular S1 S2, GI: soft, normoactive bowel sounds, : No Renal angle tenderness; EXTREMITIES: No edema, no clubbing, MUSCULOSKELETAL: no muscle wasting NEURO: Awake; no lateralizing signs. SKIN: No Rash PSYCH; Flat affect Weight / BMI Weight Weight: 114.6 kg Body Mass Index (BMI) 33.3 ABG / Lab / Microbiology Data 09/28/25 05:45 09/27/25 05:15 Laboratory: Laboratory Results - last 24 hr 09/26/25 18:10: Urine Color Elaine, Urine Clarity Cloudy, Urine pH 5.0, Ur Specific [place] 1.025, Urine Protein 500 H, Urine Glucose (UA) 50 H, Urine Ketones 5 H, Urine Occult Blood 250 H, Urine Nitrite Positive H, Urine Bilirubin 1 H, Urine Urobilinogen Normal, Ur Leukocyte Esterase 100 H, Urine RBC > 100 SEEN, Urine WBC >100 SEEN, Ur Squamous Epith Cells 0 SEEN, Urine Bacteria 1+, Urine Mucus 2+ 09/28/25 05:45: WBC 3.3 L, RBC 3.51 L, Hgb 10.9 L, Hct 33.0 L, MCV 94.0, MCH 31.1, MCHC 33.0, RDW Std Deviation 48.6 H, RDW Coeff of Jono 15.0 H, Plt Count 151, MPV 8.6, Immature Gran % (Auto) 0.300, Neut % (Auto) 68.1, Lymph % (Auto) 25.0, [place] % (Auto) 5.4, Eos % (Auto) 1.2, Baso % (Auto) 0.0, Absolute Neuts (auto) 2.3, Absolute Lymphs (auto) 0.83, Nucleated RBC % 0, Phosphorus 4.3, Magnesium 2.1 Microbiology: Microbiology 09/26/25 18:10 Urine, Clean Catch Urine Culture - Final Gram negative christopher 09/26/25 17:25 Sputum, Expectorated/Coughed Gram Stain - Final 09/26/25 17:25 Sputum, Expectorated/Coughed Respiratory Culture - Preliminary Appears to be normal respiratory gio. Further studies to follow. 09/26/25 17:25 Mucosa - Nose SARS-CoV-2, Influenza & RSV (PCR) - Final Radiography Diagnostic Testing: Radiology Impression Echocardiogram 09/27/25 09:46 Interpretation Summary Normal diastology for age. Normal systolic function. The left and right atria are normal. Trivial mitral valve insufficiency. Unable to estimate RV systolic pressure due to insufficient tricuspid regurgitant envelope. Normal aortic valve. Inferior vena cava collapse with sniff. No pericardial effusion. Ordering Physician: Cecil Negro Referring Physician: Libra Casanova Performed By: Gianni Rothman RDCS D/C Instructions Discharge Activity: Return to Normal Activity Call your doctor if you observe: Fever of 101 or Higher, Shortness of breath, Fainting spells and Chest pain DC O2, CPAP, BIPAP Needs Home O2 Discharge instructions: Yes Type of respiratory needs?: Oxygen Oxygen frequency: Continuous Continuous oxygen liters per minute: 2 DC home with Oxygen: Yes Home O2 MD Review: I have reviewed the oxygen testing, and the patient qualifies for home oxygen equipment and portability. The patient is mobile in the home and the community. Meaningful Use Info Meaningful Use Meaningful Use Diagnoses (Choose all that apply): None applicable Discharge Plan Admission Admit Date/Time: 09/26/25 21:11 Attending Provider: Cecil Negro Primary Care Provider: Libra Casanova Consulting Providers: Alfredo Donald Discharge Orders/Prescriptions Prescriptions: New prednisone 20 mg Tablet 40 mg PO BREAKFAST Qty: 10 0RF albuterol sulfate 90 mcg/actuation HFA aerosol inhaler 2 puff inhalation Q6H PRN (Reason: shortness of breath or wheezing) Qty: 8.5 0RF cefdinir 300 mg capsule 300 mg PO BID Qty: 10 0RF guaifenesin [Mucinex] 600 mg tablet extended release 12hr 1,200 mg PO BID Qty: 30 0RF Continued mecobalamin (vitamin B12) 1,000 mcg lozenge 1,000 mcg PO QDAY Rx Instructions: allow to dissolve in mouth OR may chew lightly before swallowing citalopram 20 MG tablet 30 mg PO DAILY lorazepam 1 mg tablet 1 mg PO Q12H PRN (Reason: anxiety) cholecalciferol (vitamin D3) [Vitamin D3] 25 mcg (1,000 unit) tablet 25 mcg PO DAILY Referrals / Follow Up: Libra Casanova MD [Primary Care Provider, Family Practice] - Within 2 Weeks Disposition Disposition (needs filled in before D/C Order can be placed): Home, Self Care Charges/Coding Visit Charges Inpatient E&M: 15476 Disch Hosp >30min
[2025-09-28 09:01] VITALS: O2SAT 94
[2025-09-28 09:29] VITALS: O2SAT 88; O2SAT 89; O2SAT 90
[2025-09-28 11:26] VITALS: PULSE 76; RESP 17
== END 2025-09-28 14:02 | disposition home or self-care (01) | DRG 202 ==
LOC: ED 20:15 → MS3 22:03
PROVIDERS: Admitting Provider Family Medicine; Emergency Provider Emergency Medicine; PCP Family Medicine; Visit Provider Internal Medicine
DX: J20.9 Acute bronchitis, unspecified (principal); D61.810 Antineoplastic chemotherapy induced pancytopenia; D62 Acute posthemorrhagic anemia; N30.01 Acute cystitis with hematuria; C67.9 Malignant neoplasm of bladder, unspecified; F32.A Depression, unspecified; F41.9 Anxiety disorder, unspecified; D70.1 Agranulocytosis secondary to cancer chemotherapy; T45.1X5A Adverse effect of antineoplastic and immunosuppressive drugs, initial encounter; Z79.899 Other long term (current) drug therapy
CPT/HCPCS: 36591; 71045; 71275; 77385; 77387; 80048; 80053; 81001; 83605; 83735; 83880; 84100; 84484; 85025; 85610; 85730; 87040; 87070; 87086; 87088; 87205; 87631; 93005; 93306; 94640; 94668; 99285; Q9957; Q9967; A4216; C8929